=== PATIENT | female | born 1950 | race Caucasian/White ===

== ENCOUNTER 2017-10-22 09:41 | Inpatient (IN) | payer OTHER ==
[2017-10-22] MEDS ORDERED: Ondansetron 4 MG Tab.DIS PO ONE (10:43)
--- NOTE | 2017-10-22 10:47 | EDM.PDOC ---
ED HPI GENERAL MEDICAL PROBLEM - General Chief Complaint: Respiratory Problem Stated Complaint: SHORTNESS OF BREATH Time Seen by Provider: 10/22/17 10:30 Source of Information: Reports: Patient, Family History Limitations: Reports: No Limitations - History of Present Illness INITIAL COMMENTS - FREE TEXT/NARRATIVE: 67-year-old female started developing cold symptoms yesterday, last night it became worse with a cough, nasal congestion, persistent nausea and she just feels "awful". No significant fever, no headache. Intermittent shortness of breath. She has a history of COPD and only "one kidney" so became worried and wanted to be evaluated. Denies any pain. No diarrhea. No exposure to illness that she knows of and she did not receive an influenza vaccine. Onset: Gradual (Over the course of the last 24 hours) Associated Symptoms: Reports: Cough, Loss of Appetite, Malaise, Nausea/Vomiting , Shortness of Breath, Weakness. Denies: Headaches - Related Data Allergies Allergy/AdvReac Type Severity Reaction Status Date / Time Sulfa (Sulfonamide Allergy Rash Verified 09/21/16 21:30 Antibiotics) Home Meds: Home Meds Aspirin [Niko Chewable Aspirin] 81 mg PO DAILY 11/21/13 [History] Insulin Aspart [NovoLOG] 0 units SUBCUT TID 11/21/13 [History] Insulin Detemir [Levemir] 17 units SUBCUT BID 11/21/13 [History] Labetalol [Normodyne] 200 mg PO BID 11/21/13 [History] Levothyroxine 125 mcg PO DAILY 11/21/13 [History] amLODIPine [Norvasc] 10 mg PO DAILY 11/21/13 [History] Furosemide 40 mg PO DAILY 12/10/13 [History] Citalopram Hydrobromide [Celexa] 20 mg PO DAILY 01/15/14 [History] Nitroglycerin [Nitrostat] 0.4 mg SL ASDIRECTED PRN 01/15/14 [History] atorvaSTATin [Lipitor] 80 mg PO BEDTIME 01/15/14 [History] Metolazone [Metolazone] 2.5 mg PO DAILY 07/09/16 [History] Past Medical History HEENT History: Reports: Impaired Vision Cardiovascular History: Reports: High Cholesterol, Hypertension, [place], SOB on Exertion, Stents Respiratory History: Reports: Pneumonia, Recurrent Genitourinary History: Reports: Other (See Below) Other Genitourinary History: nephrectomy, [employer] History: Reports: Musculoskeletal History: Reports: Osteoporosis Psychiatric History: Reports: Anxiety, Depression Endocrine/Metabolic History: Reports: Diabetes, Type I, Hyperthyroidism Hematologic History: Reports: Anemia, B12 Deficiency, Blood Transfusion(s) - Infectious Disease History Infectious Disease History: Reports: Chicken Pox - Past Surgical History Cardiovascular Surgical History: Reports: Coronary Artery Bypass, Coronary Artery Stent GI Surgical History: Reports: Appendectomy, Colonoscopy Social & Family History - Family History Cardiac: Reports: Heart Failure, [place] - Tobacco Use Smoking Status *Q: Unknown Ever Smoked Second Hand Smoke Exposure: No - Caffeine Use Caffeine Use: Reports: Coffee - Alcohol Use Days Per Week of Alcohol Use: 4 Number of Drinks Per Day: 2 Total Drinks Per Week: 8 - Recreational Drug Use Recreational Drug Use: No ED ROS GENERAL - Review of Systems Review Of Systems: See Below Constitutional: Reports: Fever, Malaise, Weakness HEENT: Reports: Rhinitis. Denies: Throat Pain Respiratory: Reports: Shortness of Breath, Cough. Denies: Sputum Cardiovascular: Denies: Chest Pain GI/Abdominal: Reports: Nausea. Denies: Abdominal Pain, Vomiting Skin: Reports: No Symptoms Neurological: Reports: Weakness. Denies: Dizziness, Headache Psychiatric: Reports: No Symptoms ED EXAM, GENERAL - Physical Exam Exam: See Below Exam Limited By: No Limitations General Appearance: Alert, No Apparent Distress Eye Exam: Bilateral Eye: Normal Inspection Head: Atraumatic Respiratory/Chest: No Respiratory Distress, Lungs Clear Cardiovascular: Regular Rate, Rhythm. No: Bradycardia, Tachycardia GI/Abdominal: Normal Bowel Sounds, Soft, Non-Tender Extremities: No: Pedal Edema Neurological: Alert, Oriented Psychiatric: Depressed Mood Skin Exam: Warm, Dry Course - Vital Signs Last Recorded V/S: Last Vital Signs Temp 98.9 F 10/23/17 03:01 Pulse 59 L 10/23/17 03:01 Resp 16 10/23/17 03:01 BP 114/43 L 10/23/17 03:01 Pulse Ox 94 L 10/23/17 03:01 - Orders/Labs/Meds Orders: Medication Orders Acetaminophen (Tylenol) 650 mg PO Q4H PRN PRN Reason: Pain (Mild 1-3)/fever Albuterol (Proventil Neb Soln) 2.5 mg NEB Q4H PRN PRN Reason: Shortness Of Breath/wheezing Albuterol/Ipratropium (Duoneb 3.0-0.5 Mg/3 Ml) 3 ml NEB QIDRT [facility] Last Admin: 10/22/17 21:03 Dose: 3 ml Admin: 10/22/17 16:23 Dose: 3 ml Amlodipine Besylate (Norvasc) 10 mg PO DAILY [facility] Last Admin: 10/22/17 16:51 Dose: 10 mg Aspirin (Aspirin) 81 mg PO DAILY [facility] Last Admin: 10/22/17 16:49 Dose: 81 mg Atorvastatin Calcium (Lipitor) 80 mg PO BEDTIME [facility] Last Admin: 10/22/17 21:05 Dose: 80 mg Citalopram Hydrobromide (Celexa) 20 mg PO DAILY [facility] Dextrose (Glutose 15) 15 gm PO ONETIME PRN PRN Reason: Hypoglycemia Dextrose/Water (Dextrose 50% In Water) 50 ml IV ONETIME PRN PRN Reason: Hypoglycemia Docusate Sodium (Colace) 100 mg PO BID PRN PRN Reason: Constipation Enoxaparin Sodium (Lovenox) 40 mg SUBCUT QPM [facility] Last Admin: 10/22/17 16:50 Dose: 40 mg Furosemide (Lasix) 40 mg PO DAILY [facility] Ampicillin Sodium/Sulbactam (Sodium 1.5 gm/ Sodium Chloride) 50 mls @ 100 mls/ hr IV Q6H [facility] Last Admin: 10/23/17 03:04 Dose: 100 mls/hr Admin: 10/22/17 21:16 Dose: 100 mls/hr Admin: 10/22/17 16:50 Dose: 100 mls/hr Sodium Chloride (Normal Saline) 1,000 mls @ 125 mls/hr IV ASDIRECTED [facility] Last Admin: 10/23/17 02:00 Dose: 125 mls/hr Insulin Aspart (Novolog) 0 unit SUBCUT QIDACANDBED [facility] PRN Reason: Protocol Last Admin: 10/22/17 20:59 Dose: 10 units Admin: 10/22/17 17:20 Dose: 8 units Insulin Detemir (Levemir) 17 unit SUBCUT BID [facility] Last Admin: 10/22/17 21:00 Dose: 17 units Labetalol HCl (Normodyne) 200 mg PO BID [facility] Last Admin: 10/22/17 21:04 Dose: 200 mg Levothyroxine Sodium (Levothyroxine) 75 mcg PO ACBREAKFAST [facility] Levothyroxine Sodium (Synthroid) 50 mcg PO ACBREAKFAST [facility] Magnesium Hydroxide (Milk Of Magnesia) 30 ml PO Q12H PRN PRN Reason: Constipation Metolazone (Zaroxolyn) 2.5 mg PO DAILY [facility] Nitroglycerin (Nitrostat) 0.4 mg SL ASDIRECTED PRN PRN Reason: Chest Pain Ondansetron HCl (Zofran) 4 mg IV Q4H PRN PRN Reason: Nausea/Vomiting Oseltamivir Phosphate (Tamiflu) 30 mg PO BID [facility] Last Admin: 10/22/17 21:05 Dose: 30 mg Admin: 10/22/17 16:49 Dose: 30 mg Oxycodone HCl (Oxycodone) 5 mg PO Q4H PRN PRN Reason: Pain (moderate 4-6) Polyethylene Glycol (Miralax) 17 gm PO DAILY PRN PRN Reason: Constipation Sodium Chloride (Saline Flush) 10 ml FLUSH ASDIRECTED PRN PRN Reason: Keep Vein Open Labs: Laboratory Tests 10/22/17 10/22/17 10/22/17 Range/Units 10:56 10:56 13:22 WBC 4.6 (4.5-11.0) K/uL RBC 3.71 (3.30-5.50) M/uL Hgb 11.4 L (12.0-15.0) g/dL Hct 34.6 L (36.0-48.0) % MCV 93 (80-98) fL MCH 31 (27-31) pg MCHC 33 (32-36) % Plt Count 198 (150-400) K/uL Neut % (Auto) 71 H (36-66) % Lymph % (Auto) 11 L (24-44) % [place] % (Auto) 18 H (2-6) % Eos % (Auto) 0 L (2-4) % Baso % (Auto) 1 (0-1) % Sodium 137 L (140-148) mmol/L Potassium 4.0 (3.6-5.2) mmol/L Chloride 98 L (100-108) mmol/L Carbon Dioxide 26 (21-32) mmol/L Anion Gap 17.0 H (5.0-14.0) mmol/L BUN 37 H (7-18) mg/dL Creatinine 1.5 H (0.6-1.0) mg/dL Est Cr Clr Drug Dosing 26.50 mL/min Estimated GFR (MDRD) 35 L (>60) Glucose 207 H (74-106) mg/dL Calcium 9.8 (8.5-10.1) mg/dL Total Bilirubin 2.0 H D (0.2-1.0) mg/dL AST 37 D (15-37) U/L ALT 38 D (12-78) U/L Alkaline Phosphatase 301 H D (46-116) U/L Total Protein 8.0 (6.4-8.2) g/dL Albumin 4.3 (3.4-5.0) g/dL Globulin 3.7 H (2.3-3.5) g/dL Albumin/Globulin Ratio 1.2 (1.2-2.2) Urine Color Yellow Urine Appearance Slightly cloudy Urine pH 5.0 (4.5-8.0) Ur Specific [place] 1.010 (1.008-1.030) Urine Protein 30 H (NEGATIVE) mg/dL Urine Glucose (UA) 50 H (NEGATIVE) mg/dL Urine Ketones 15 H (NEGATIVE) mg/dL Urine Occult Blood Negative (NEGATIVE) Urine Nitrite Negative (NEGATIVE) Urine Bilirubin Negative (NEGATIVE) Urine Urobilinogen 1 (NORMAL) mg/dL Ur Leukocyte Esterase Negative (NEGATIVE) Urine RBC 0-5 (0-5) Urine WBC Not seen (0-5) Ur Epithelial Cells Rare Amorphous Sediment Rare Urine Bacteria Not seen Urine Mucus Not seen Meds: Medications Generic Name Dose Route Start Last Admin Trade Name Freq PRN Reason Stop Dose Admin Acetaminophen 650 mg 10/22/17 16:03 Tylenol PO Q4H PRN Pain (Mild 1-3)/fever Albuterol 2.5 mg 10/22/17 16:03 Proventil Neb Soln NEB Q4H PRN Shortness Of Breath/wheezing Albuterol/Ipratropium 3 ml 10/22/17 16:00 10/22/17 21:03 Duoneb 3.0-0.5 Mg/3 Ml NEB 3 ml QIDRT [facility] Administration Amlodipine Besylate 10 mg 10/22/17 17:00 10/22/17 16:51 Norvasc PO 10 mg DAILY [facility] Administration Aspirin 81 mg 10/22/17 17:00 10/22/17 16:49 Aspirin PO 81 mg DAILY [facility] Administration Atorvastatin Calcium 80 mg 10/22/17 21:00 10/22/17 21:05 Lipitor PO 80 mg BEDTIME J[facility]ATAN Administration Citalopram Hydrobromide 20 mg 10/23/17 09:00 Celexa PO DAILY [facility] Dextrose 15 gm 10/22/17 16:03 Glutose 15 PO ONETIME PRN Hypoglycemia Dextrose/Water 50 ml 10/22/17 16:03 Dextrose 50% In Water IV ONETIME PRN Hypoglycemia Docusate Sodium 100 mg 10/22/17 16:03 Colace PO BID PRN Constipation Enoxaparin Sodium 40 mg 10/22/17 17:00 10/22/17 16:50 Lovenox SUBCUT 40 mg QPM [facility] Administration Furosemide 40 mg 10/23/17 09:00 Lasix PO DAILY [facility] Ampicillin Sodium/Sulbactam 50 mls @ 100 mls/hr 10/22/17 16:00 10/23/17 03:04 Sodium 1.5 gm/ Sodium Chloride IV 100 mls/hr Q6H [facility] Administration Sodium Chloride 1,000 mls @ 125 mls/hr 10/22/17 21:30 10/23/17 02:00 Normal Saline IV 125 mls/hr ASDIRECTED [facility] Administration Insulin Aspart 0 unit 10/22/17 17:00 10/22/17 20:59 Novolog SUBCUT 10 units QIDACANDBED [facility] Administration Protocol Insulin Detemir 17 unit 10/22/17 21:00 10/22/17 21:00 Levemir SUBCUT 17 units BID [facility] Administration Labetalol HCl 200 mg 10/22/17 21:00 10/22/17 21:04 Normodyne PO 200 mg BID [facility] Administration Levothyroxine Sodium 75 mcg 10/23/17 07:30 Levothyroxine PO ACBREAKFAST [facility] Levothyroxine Sodium 50 mcg 10/23/17 07:30 Synthroid PO ACBREAKFAST [facility] Magnesium Hydroxide 30 ml 10/22/17 16:03 Milk Of Magnesia PO Q12H PRN Constipation Metolazone 2.5 mg 10/23/17 09:00 Zaroxolyn PO DAILY [facility] Nitroglycerin 0.4 mg 10/22/17 16:03 Nitrostat SL ASDIRECTED PRN Chest Pain Ondansetron HCl 4 mg 10/22/17 16:03 Zofran IV Q4H PRN Nausea/Vomiting Oseltamivir Phosphate 30 mg 10/22/17 16:30 10/22/17 21:05 Tamiflu PO 30 mg BID [facility] Administration Oxycodone HCl 5 mg 10/22/17 16:03 Oxycodone PO Q4H PRN Pain (moderate 4-6) Polyethylene Glycol 17 gm 10/22/17 16:03 Miralax PO DAILY PRN Constipation Sodium Chloride 10 ml 10/22/17 16:03 Saline Flush FLUSH ASDIRECTED PRN Keep Vein Open Discontinued Medications Generic Name Dose Route Start Last Admin Trade Name Freq PRN Reason Stop Dose Admin Acetaminophen 1,000 mg 10/22/17 14:23 10/22/17 14:25 Tylenol Extra Strength PO 10/22/17 14:24 1,000 mg ONETIME ONE Administration Albuterol/Ipratropium 3 ml 10/22/17 13:24 10/22/17 13:52 Duoneb 3.0-0.5 Mg/3 Ml NEB 10/22/17 13:25 3 ml ONETIME ONE Administration Sodium Chloride 1,000 mls @ 1,000 mls/hr 10/22/17 11:30 10/22/17 11:41 Normal Saline IV 1,000 mls/hr ASDIRECTED [facility] Administration Sodium Chloride 500 mls @ 250 mls/hr 10/22/17 16:03 Normal Saline IV 10/22/17 22:04 .BOLUS J[facility]ONAT[facility] Ondansetron HCl 4 mg 10/22/17 10:43 10/22/17 10:53 Zofran Odt PO 10/22/17 10:44 4 mg ONETIME ONE Administration Ondansetron HCl 4 mg 10/22/17 12:50 10/22/17 13:07 Zofran IVPUSH 10/22/17 12:51 4 mg ONETIME ONE Administration - Re-Assessments/Exams Free Text/Narrative Re-Assessment/Exam: 10/22/17 10:47 Patient was given 4 mg of sublingual Zofran, CBC CMP and influenza antigens were obtained. 10/22/17 12:07 Influenza was positive for influenza A. CMP reveals an elevated creatinine and low GFR consistent with recent clinic levels. She does have some elevation in her alkaline phosphatase and bilirubin. Because of the elevations and her persistent nausea a gallbladder ultrasound was obtained. We also had to place the patient on oxygen as her O2 saturations decreased with activity. 10/23/17 07:24 Ultrasound revealed a small amount of pericholecystic fluid. Patient continued to have persistent nausea, so I asked Dr. Bryan to see the patient to consider admission. Departure - Departure Time of Disposition: 15:49 Disposition: Admitted As Inpatient 67 Condition: Fair Clinical Impression: Influenza A Nausea & vomiting Qualifiers: Vomiting type: unspecified Vomiting Intractability: non-intractable Qualified Code(s): R11.2 - Nausea with vomiting, unspecified - Discharge Information
[2017-10-22] MEDS ORDERED: Sodium Chloride 0.9% 1,000 ML IV SCH ×2 (11:30→21:30)
[2017-10-22] MEDS ORDERED: Ondansetron 4 MG/2 ML SDV IVPUSH ONE (12:50)
[2017-10-22] MEDS ORDERED: Albuterol/Ipratropium 3.0-0.5 MG/3 ML Neb Soln NEB ONE (13:24)
--- NOTE | 2017-10-22 14:03 | US ---
Right upper quadrant ultrasound There are no focal hepatic abnormalities. There is mild prominence of the intrahepatic bile ducts. Th e common bile duct is nondistended measuring 3 mm. There is a polyp of the gallbladder measuring 4.7 mm. The gallbladder is not distended. Gallbladder wall appears mildly thickened measuring 3 mm. Quest ion inadequate fasting. There may be mild pericholecystic fluid. There is no pain elicited with palpa tion over the gallbladder. Limited evaluation of the pancreas demonstrates no abnormalities. The righ t kidney is surgically absent. There is no ascites. The IVC and abdominal aorta are unremarkable. Impression: 1. Nondistended gallbladder. Mild wall thickening. There is evidence of a polyp. No stones are seen. Evidence for mild pericholecystic fluid. The study could repeated with adequate fasting. 2. Mild intrahepatic biliary ductal distention cannot be excluded. 3. Limited visualization of the pancreas.
[2017-10-22] MEDS ORDERED: Acetaminophen 500 MG Tab PO ONE (14:23)
--- NOTE | 2017-10-22 15:38 | PCM.HP ---
H&P History of Present Illness - General Date of Service: 10/22/17 Admit Problem/Dx: Source of Information: Patient, Old Records, Provider, RN Notes Reviewed History Limitations: Reports: No Limitations - History of Present Illness Initial Comments - Free Text/Narative: Ms. Roach is a 67-year-old woman who is admitted through the emergency department with weakness, myalgias, fever, and shortness of breath secondary to influenza A. She was feeling well until approximately 36 hours ago when she developed progressive shortness of breath with fever and chills, since then has developed cough and significant myalgias with nausea and vomiting. White blood cell count is normal, chest x-ray shows no obvious infiltrates. Antigen for influenza A is found to be positive. Because of nausea vomiting as well as elevated liver enzymes, abdominal ultrasound was obtained. This does show mild thickening of the gallbladder wall associated with pericolic systolic fluid. She 's never had a previous history gallbladder disease and denies significant symptoms even with eating fatty foods. - Related Data Allergies/Adverse Reactions: Allergies Allergy/AdvReac Type Severity Reaction Status Date / Time Sulfa (Sulfonamide Allergy Rash Verified 09/21/16 21:30 Antibiotics) Home Medications: Home Meds Aspirin [Niko Chewable Aspirin] 81 mg PO DAILY 11/21/13 [History] Insulin Aspart [NovoLOG] 0 units SUBCUT TID 11/21/13 [History] Insulin Detemir [Levemir] 17 units SUBCUT BID 11/21/13 [History] Labetalol [Normodyne] 200 mg PO BID 11/21/13 [History] Levothyroxine 125 mcg PO DAILY 11/21/13 [History] amLODIPine [Norvasc] 10 mg PO DAILY 11/21/13 [History] Furosemide 40 mg PO DAILY 12/10/13 [History] Citalopram Hydrobromide [Celexa] 20 mg PO DAILY 01/15/14 [History] Nitroglycerin [Nitrostat] 0.4 mg SL ASDIRECTED PRN 01/15/14 [History] atorvaSTATin [Lipitor] 80 mg PO BEDTIME 01/15/14 [History] Metolazone [Metolazone] 2.5 mg PO DAILY 07/09/16 [History] Past Medical History HEENT History: Reports: Impaired Vision Cardiovascular History: Reports: High Cholesterol, Hypertension, [place], SOB on Exertion, Stents Respiratory History: Reports: Pneumonia, Recurrent Genitourinary History: Reports: Other (See Below) Other Genitourinary History: nephrectomy, 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: Musculoskeletal History: Reports: Osteoporosis Psychiatric History: Reports: Anxiety, Depression Endocrine/Metabolic History: Reports: Diabetes, Type I, Hyperthyroidism Hematologic History: Reports: Anemia, B12 Deficiency, Blood Transfusion(s) - Infectious Disease History Infectious Disease History: Reports: Chicken Pox - Past Surgical History Cardiovascular Surgical History: Reports: Coronary Artery Bypass, Coronary Artery Stent GI Surgical History: Reports: Appendectomy, Colonoscopy Social & Family History - Family History Cardiac: Reports: Heart Failure, [place] - Tobacco Use Smoking Status *Q: Unknown Ever Smoked Second Hand Smoke Exposure: No - Caffeine Use Caffeine Use: Reports: Coffee - Alcohol Use Days Per Week of Alcohol Use: 4 Number of Drinks Per Day: 2 Total Drinks Per Week: 8 - Recreational Drug Use Recreational Drug Use: No H&P Review of Systems - Review of Systems: Review Of Systems: See Below General: Reports: Fever, Chills, Weakness, Diaphoresis, Decreased Appetite HEENT: Reports: No Symptoms Pulmonary: Reports: Shortness of Breath, Cough, Sputum. Denies: Wheezing, Pleuritic Chest Pain, Hemoptysis Cardiovascular: Reports: Dyspnea on Exertion, Edema. Denies: Chest Pain, Palpitations, Orthopnea, PND, Lightheadedness Gastrointestinal: Reports: Anorexia, Nausea, Vomiting. Denies: Abdominal Pain, Constipation, Diarrhea, Difficulty Swallowing, Hematemesis, Hematochezia, Melena Genitourinary: Reports: No Symptoms Musculoskeletal: Reports: Muscle Pain, Muscle Stiffness Skin: Reports: No Symptoms Psychiatric: Reports: No Symptoms Neurological: Reports: No Symptoms Hematologic/Lymphatic: Reports: No Symptoms Immunologic: Reports: No Symptoms Exam - Exam Exam: See Below - Vital Signs Vital Signs: Last Vital Signs Temp 101.7 F H 10/22/17 14:04 Pulse 77 10/22/17 14:04 Resp 16 10/22/17 14:04 BP 151/59 H 10/22/17 14:04 Pulse Ox 92 L 10/22/17 14:04 Weight: 155 lb - Exam Quality Assessment: Supplemental Oxygen, DVT Prophylaxis General: Alert, Oriented, Cooperative, Moderate Distress HEENT: Conjunctiva Clear, Hearing Intact, Normal Nasal Septum, Posterior Pharynx Clear, Pupils Equal. No: Mucosa Moist & [place] Neck: Supple, Trachea Midline, +2 Carotid Pulse wo Bruit Lungs: Rhonchi. No: Crackles, Rales, Rub, Stridor, Wheezing Cardiovascular: Regular Rate, Regular Rhythm, Normal S1, Normal S2. No: Systolic Murmur, Diastolic Murmur GI/Abdominal Exam: Soft, Non-Tender, No Organomegaly, No Distention Back Exam: Normal Inspection, Full Range of Motion Extremities: Non-Tender, Pedal Edema Skin: Warm, Dry, Intact Neurological: Cranial Nerves Intact, Strength Equal Bilateral, Normal Speech, Normal Tone, Sensation Intact. No: Focal Deficit Neuro Extensive - Mental Status: Alert, Oriented x3, Normal Mood/Affect, Normal Cognition, Memory Intact - Patient Data Lab Results Last 24 hrs: Laboratory Results - last 24 hr 10/22/17 10/22/17 10/22/17 Range/Units 10:56 10:56 13:22 WBC 4.6 (4.5-11.0) K/uL RBC 3.71 (3.30-5.50) M/uL Hgb 11.4 L (12.0-15.0) g/dL Hct 34.6 L (36.0-48.0) % MCV 93 (80-98) fL MCH 31 (27-31) pg MCHC 33 (32-36) % Plt Count 198 (150-400) K/uL Neut % (Auto) 71 H (36-66) % Lymph % (Auto) 11 L (24-44) % Davison % (Auto) 18 H (2-6) % Eos % (Auto) 0 L (2-4) % Baso % (Auto) 1 (0-1) % Sodium 137 L (140-148) mmol/L Potassium 4.0 (3.6-5.2) mmol/L Chloride 98 L (100-108) mmol/L Carbon Dioxide 26 (21-32) mmol/L Anion Gap 17.0 H (5.0-14.0) mmol/L BUN 37 H (7-18) mg/dL Creatinine 1.5 H (0.6-1.0) mg/dL Est Cr Clr Drug Dosing 26.50 mL/min Estimated GFR (MDRD) 35 L (>60) Glucose 207 H (74-106) mg/dL Calcium 9.8 (8.5-10.1) mg/dL Total Bilirubin 2.0 H D (0.2-1.0) mg/dL AST 37 D (15-37) U/L ALT 38 D (12-78) U/L Alkaline Phosphatase 301 H D (46-116) U/L Total Protein 8.0 (6.4-8.2) g/dL Albumin 4.3 (3.4-5.0) g/dL Globulin 3.7 H (2.3-3.5) g/dL Albumin/Globulin Ratio 1.2 (1.2-2.2) Urine Color Yellow Urine Appearance Slightly cloudy Urine pH 5.0 (4.5-8.0) Ur Specific [place] 1.010 (1.008-1.030) Urine Protein 30 H (NEGATIVE) mg/dL Urine Glucose (UA) 50 H (NEGATIVE) mg/dL Urine Ketones 15 H (NEGATIVE) mg/dL Urine Occult Blood Negative (NEGATIVE) Urine Nitrite Negative (NEGATIVE) Urine Bilirubin Negative (NEGATIVE) Urine Urobilinogen 1 (NORMAL) mg/dL Ur Leukocyte Esterase Negative (NEGATIVE) Urine RBC 0-5 (0-5) Urine WBC Not seen (0-5) Ur Epithelial Cells Rare Amorphous Sediment Rare Urine Bacteria Not seen Urine Mucus Not seen Result Diagrams: 10/22/17 10:56 10/22/17 10:56 Asad Results Last 24 hrs: Microbiology 10/22/17 10:55 Influenza Type A Antigen Screen - Final Nasopharyngeal Swab - Nare, Right Positive Influenza A Ag Influenza Type B Antigen Screen - Final NEGATIVE INFLUENZA B VIRUS AG *Q Meaningful Use (ADM) - VTE *Q VTE Criteria *Q: - VTE Risk Assess *Q Each Risk Factor Represents 1 Point: Congestive heart failure (CHF) Total Score 1 Point Risk Factors: 1 Each Risk Factor Represents 2 Points: Age 60 - 74 Years Total Score 2 Point Risk Factors: 2 Each Risk Factor Represents 3 Points: None Total Score 3 Point Risk Factors: 0 Each Risk Factor Represents 5 Points: None Total Score 5 Point Risk Factors: 0 Venous Thromboembolism Risk Factor Score *Q: 3 - Stroke *Q Stroke Criteria *Q: - AMI *Q AMI Criteria *Q: Problem List Initiated/Reviewed/Updated: Yes Orders Last 24hrs: Active Orders 24 hr Category Date Time Status Patient Status Manage Transfer [TRANSFER] Routine ADT 10/22/17 15:13 Active RT Aerosol Therapy [RC] ASDIRECTED Care 10/22/17 13:24 Active Sodium Chloride 0.9% [Normal Saline] 1,000 ml Med 10/22/17 11:30 Active IV ASDIRECTED Resuscitation Status Routine Resus Stat 10/22/17 15:16 Ordered Medication Orders Sodium Chloride (Normal Saline) 1,000 mls @ 1,000 mls/hr IV ASDIRECTED [facility] Last Admin: 10/22/17 11:41 Dose: 1,000 mls/hr Assessment/Plan Comment:: ASSESSMENT AND PLAN INFLUENZA A INFECTION-associated symptoms of shortness of breath cough, myalgias , fever, and weakness. Symptoms present now for approximately 36 hours. -IV fluids for hydration -Pain medication as needed for myalgias -Tamiflu 75 mg by mouth twice a day 5 days CHOLECYSTITIS-evidence of gallbladder inflammation, although mild, noted on abdominal ultrasound. Symptoms of nausea and vomiting over the past 24 hours. -Anti-medic therapy as needed -Unasyn 1.5 g IV every 6 hours -Consider further evaluation with HIDA scan when respiratory symptoms have improved HYPOXIC RESPIRATORY FAILURE-secondary to influenza A, also has known congestive heart failure with preserved left ventricular function -Supplemental oxygen as needed -Nebulized albuterol and duo nebs as needed -Continuous pulse oximetry CONGESTIVE HEART FAILURE WITH PRESERVED LEFT VENTRICULAR FUNCTION-RT failure seems to be well compensated at the present time -Continue outpatient medical regimen CORONARY ARTERY DISEASE-currently asymptomatic -Continue outpatient medical regimen CHRONIC KIDNEY DISEASE STAGE III -Closely monitor urine output and renal function during hospital stay TYPE 2 DIABETES MELLITUS -Continue usual dose of long-acting insulin -Hold usual dose of NovoLog -4 times a day glucometers -Moderate dose sliding scale NovoLog MAINTENANCE ISSUES -DVT prophylaxis; Lovenox 40 mg subcutaneous daily -GI prophylaxis; not indicated -Muhammad catheter; not indicated -Nutrition; consistent carbohydrate, 2 g sodium diet -Nicotine dependence; not required CODE STATUS-FULL CODE ADMISSION STATUS-patient will be admitted to inpatient status, expect at least a 2 night hospital stay for evaluation and management of problems as outlined above. At the time of this admission I do not reasonably expected evaluation and management of this problem will require more than a 96 hour hospital stay. DISPOSITION-anticipate discharge to home after the hospital stay. PRIMARY CARE PROVIDER-Erwin Núñez
[2017-10-22] MEDS ORDERED: Ondansetron 4 MG/2 ML SDV IV PRN (16:03)
[2017-10-22] MEDS ORDERED: Polyethylene Glycol 3350 Powder 17 GM Packet PO PRN (16:03)
[2017-10-22] MEDS ORDERED: 50% Dextrose in Water 50 ML Syringe IV PRN (16:03)
[2017-10-22] MEDS ORDERED: Albuterol 0.083% 2.5 MG/3 ML Neb Soln NEB PRN (16:03)
[2017-10-22] MEDS ORDERED: Docusate Sodium 100 MG Cap PO PRN (16:03)
[2017-10-22] MEDS ORDERED: Sodium Chloride 0.9% 10 ML Syringe FLUSH PRN (16:03)
[2017-10-22] MEDS ORDERED: oxyCODONE 5 MG Tab PO PRN (16:03)
[2017-10-22] MEDS ORDERED: Magnesium Hydroxide 400 MG/5 ML Susp 30 ML Cup PO PRN (16:03)
[2017-10-22] MEDS ORDERED: Nitroglycerin 0.4 MG Tab.SL SL PRN (16:03)
[2017-10-22] MEDS ORDERED: Sodium Chloride 0.9% 500 ML IV SCH (16:03)
[2017-10-22] MEDS ORDERED: Glucose Gel 15 GM in 37.5 GM Tube PO PRN (16:03)
[2017-10-22] MEDS: Albuterol/Ipratropium 3.0-0.5 MG/3 ML Neb Soln NEB SCH ×2 (16:23→21:03)
[2017-10-22] MEDS: Aspirin 81 MG Tab.Chew PO SCH (16:49)
[2017-10-22] MEDS: Oseltamivir 30 MG Cap PO SCH ×2 (16:49→21:05)
[2017-10-22] MEDS: Ampicillin/Sulbactam Na 1.5 GM in Sodium Chloride 0.9% 50 ML IV SCH ×2 (16:50→21:16)
[2017-10-22] MEDS: Enoxaparin 40 MG/0.4 ML Syringe SUBCUT SCH (16:50)
[2017-10-22] MEDS: amLODIPine 10 MG Tab PO SCH (16:51)
[2017-10-22] MEDS: Insulin Aspart 100 Units/ML 3 ML Pen SUBCUT SCH ×2 (17:20→20:59)
[2017-10-22] MEDS: Insulin Detemir 100 Units/ML 3 ML Pen SUBCUT SCH (21:00)
[2017-10-22] MEDS: Labetalol 100 MG Tab PO SCH (21:04)
[2017-10-22] MEDS: atorvaSTATin 20 MG Tab PO SCH (21:05)
[2017-10-23] MEDS: Ampicillin/Sulbactam Na 1.5 GM in Sodium Chloride 0.9% 50 ML IV SCH ×4 (03:04→21:35)
[2017-10-23] MEDS: Levothyroxine 50 MCG Tab PO SCH (07:46)
[2017-10-23] MEDS: Levothyroxine 75 MCG Tab PO SCH (07:46)
[2017-10-23] MEDS: Insulin Aspart 100 Units/ML 3 ML Pen SUBCUT SCH ×4 (07:58→21:36)
[2017-10-23] MEDS: Albuterol/Ipratropium 3.0-0.5 MG/3 ML Neb Soln NEB SCH ×4 (08:04→20:28)
[2017-10-23] MEDS: amLODIPine 10 MG Tab PO SCH (08:49)
[2017-10-23] MEDS: Furosemide 40 MG Tab PO SCH (08:50)
[2017-10-23] MEDS: Citalopram 20 MG Tab PO SCH (08:50)
[2017-10-23] MEDS: Oseltamivir 30 MG Cap PO SCH ×2 (08:50→20:26)
[2017-10-23] MEDS: Labetalol 100 MG Tab PO SCH ×2 (08:50→20:26)
[2017-10-23] MEDS: Metolazone 2.5 MG Tab PO SCH (08:50)
[2017-10-23] MEDS: Aspirin 81 MG Tab.Chew PO SCH (08:50)
[2017-10-23] MEDS: Insulin Detemir 100 Units/ML 3 ML Pen SUBCUT SCH ×2 (08:51→21:36)
--- NOTE | 2017-10-23 12:46 | PCM.PN ---
- General Info Date of Service: 10/23/17 Subjective Update: Ms. Roach feels improved from admission respiratory status is better with less shortness of breath and cough. Abdominal pain with nausea vomiting is also resolved she tolerated breakfast today without significant difficulty. Liver enzymes have all improved from yesterday. Functional Status: Reports: Pain Controlled, Tolerating Diet - Review of Systems General: Denies: Fever, Weakness, Chills Pulmonary: Reports: Shortness of Breath, Cough. Denies: Pleuritic Chest Pain, Sputum, Hemoptysis, Wheezing Cardiovascular: Reports: Dyspnea on Exertion. Denies: Chest Pain, Palpitations , Orthopnea, PND, Edema, Lightheadedness Gastrointestinal: Denies: Abdominal Pain, Decreased Appetite, Diarrhea, Difficulty Swallowing, Nausea, Vomiting - Patient Data Vitals - Most Recent: Last Vital Signs Temp 98.8 F 10/23/17 11:00 Pulse 56 L 10/23/17 11:00 Resp 18 10/23/17 11:00 BP 118/47 L 10/23/17 11:00 Pulse Ox 94 L 10/23/17 11:00 Weight - Most Recent: 159 lb 12.8 oz I&O - Last 24 Hours: Intake & Output 10/22/17 10/23/17 10/23/17 22:59 06:59 14:59 Intake Total 550 842 360 Output Total 300 300 Balance 250 542 360 Lab Results Last 24 Hours: Laboratory Results - last 24 hr 10/23/17 10/23/17 10/23/17 Range/Units 05:11 06:00 06:00 WBC 3.0 L (4.5-11.0) K/uL RBC 3.32 (3.30-5.50) M/uL Hgb 10.2 L (12.0-15.0) g/dL Hct 31.5 L (36.0-48.0) % MCV 95 (80-98) fL MCH 31 (27-31) pg MCHC 32 (32-36) % Plt Count 165 (150-400) K/uL Neut % (Auto) 38 (36-66) % Lymph % (Auto) 30 (24-44) % [place] % (Auto) 31 H (2-6) % Eos % (Auto) 0 L (2-4) % Baso % (Auto) 0 (0-1) % Sodium 137 L (140-148) mmol/L Potassium 3.8 (3.6-5.2) mmol/L Chloride 102 (100-108) mmol/L Carbon Dioxide 27 (21-32) mmol/L Anion Gap 11.8 (5.0-14.0) mmol/L BUN 42 H (7-18) mg/dL Creatinine 1.7 H (0.6-1.0) mg/dL Est Cr Clr Drug Dosing TNP Estimated GFR (MDRD) 30 L (>60) Glucose 140 H (74-106) mg/dL Calcium 8.2 L D (8.5-10.1) mg/dL Magnesium 1.8 (1.8-2.4) mg/dL Total Bilirubin 1.1 H (0.2-1.0) mg/dL AST 47 H (15-37) U/L ALT 33 (12-78) U/L Alkaline Phosphatase 235 H (46-116) U/L Total Protein 6.4 (6.4-8.2) g/dL Albumin 3.3 L (3.4-5.0) g/dL Globulin 3.1 (2.3-3.5) g/dL Albumin/Globulin Ratio 1.1 L (1.2-2.2) TSH, Ultra Sensitive 2.545 (0.358-3.740) uIU/mL Med Orders - Current: Current Medications Acetaminophen (Tylenol) 650 mg PO Q4H PRN PRN Reason: Pain (Mild 1-3)/fever Albuterol (Proventil Neb Soln) 2.5 mg NEB Q4H PRN PRN Reason: Shortness Of Breath/wheezing Albuterol/Ipratropium (Duoneb 3.0-0.5 Mg/3 Ml) 3 ml NEB QIDRT [facility] Last Admin: 10/23/17 10:54 Dose: 3 ml Amlodipine Besylate (Norvasc) 10 mg PO DAILY [facility] Last Admin: 10/23/17 08:49 Dose: 10 mg Aspirin (Aspirin) 81 mg PO DAILY [facility] Last Admin: 10/23/17 08:50 Dose: 81 mg Atorvastatin Calcium (Lipitor) 80 mg PO BEDTIME [facility] Last Admin: 10/22/17 21:05 Dose: 80 mg Citalopram Hydrobromide (Celexa) 20 mg PO DAILY [facility] Last Admin: 10/23/17 08:50 Dose: 20 mg Dextrose (Glutose 15) 15 gm PO ONETIME PRN PRN Reason: Hypoglycemia Dextrose/Water (Dextrose 50% In Water) 50 ml IV ONETIME PRN PRN Reason: Hypoglycemia Docusate Sodium (Colace) 100 mg PO BID PRN PRN Reason: Constipation Enoxaparin Sodium (Lovenox) 40 mg SUBCUT QPM [facility] Last Admin: 10/22/17 16:50 Dose: 40 mg Furosemide (Lasix) 40 mg PO DAILY [facility] Last Admin: 10/23/17 08:50 Dose: 40 mg Ampicillin Sodium/Sulbactam (Sodium 1.5 gm/ Sodium Chloride) 50 mls @ 100 mls/ hr IV Q6H [facility] Last Admin: 10/23/17 09:49 Dose: 100 mls/hr Insulin Aspart (Novolog) 0 unit SUBCUT QIDACANDBED [facility] PRN Reason: Protocol Last Admin: 10/23/17 11:55 Dose: 8 units Insulin Detemir (Levemir) 17 unit SUBCUT BID [facility] Last Admin: 10/23/17 08:51 Dose: 17 units Labetalol HCl (Normodyne) 200 mg PO BID [facility] Last Admin: 10/23/17 08:50 Dose: 200 mg Levothyroxine Sodium (Levothyroxine) 75 mcg PO ACBREAKFAST [facility] Last Admin: 10/23/17 07:46 Dose: 75 mcg Levothyroxine Sodium (Synthroid) 50 mcg PO ACBREAKFAST [facility] Last Admin: 10/23/17 07:46 Dose: 50 mcg Magnesium Hydroxide (Milk Of Magnesia) 30 ml PO Q12H PRN PRN Reason: Constipation Metolazone (Zaroxolyn) 2.5 mg PO DAILY [facility] Last Admin: 10/23/17 08:50 Dose: 2.5 mg Nitroglycerin (Nitrostat) 0.4 mg SL ASDIRECTED PRN PRN Reason: Chest Pain Ondansetron HCl (Zofran) 4 mg IV Q4H PRN PRN Reason: Nausea/Vomiting Oseltamivir Phosphate (Tamiflu) 30 mg PO BID [facility] Last Admin: 10/23/17 08:50 Dose: 30 mg Oxycodone HCl (Oxycodone) 5 mg PO Q4H PRN PRN Reason: Pain (moderate 4-6) Polyethylene Glycol (Miralax) 17 gm PO DAILY PRN PRN Reason: Constipation Sodium Chloride (Saline Flush) 10 ml FLUSH ASDIRECTED PRN PRN Reason: Keep Vein Open Discontinued Medications Acetaminophen (Tylenol Extra Strength) 1,000 mg PO ONETIME ONE Stop: 10/22/17 14:24 Last Admin: 10/22/17 14:25 Dose: 1,000 mg Albuterol/Ipratropium (Duoneb 3.0-0.5 Mg/3 Ml) 3 ml NEB ONETIME ONE Stop: 10/22/17 13:25 Last Admin: 10/22/17 13:52 Dose: 3 ml Sodium Chloride (Normal Saline) 1,000 mls @ 1,000 mls/hr IV ASDIRECTED [facility] Last Admin: 10/22/17 11:41 Dose: 1,000 mls/hr Sodium Chloride (Normal Saline) 500 mls @ 250 mls/hr IV .BOLUS [facility] Stop: 10/22/17 22:04 Sodium Chloride (Normal Saline) 1,000 mls @ 125 mls/hr IV ASDIRECTED [facility] Last Admin: 10/23/17 02:00 Dose: 125 mls/hr Ondansetron HCl (Zofran Odt) 4 mg PO ONETIME ONE Stop: 10/22/17 10:44 Last Admin: 10/22/17 10:53 Dose: 4 mg Ondansetron HCl (Zofran) 4 mg IVPUSH ONETIME ONE Stop: 10/22/17 12:51 Last Admin: 10/22/17 13:07 Dose: 4 mg - Exam General: Alert, Oriented, Cooperative, No Acute Distress Lungs: Normal Respiratory Effort, Rhonchi. No: Decreased Breath Sounds, Wheezing Cardiovascular: Regular Rate, Regular Rhythm, No Murmurs GI/Abdominal Exam: Soft, Non-Tender, No Organomegaly, No Distention Extremities: Non-Tender, No Pedal Edema Skin: Warm, Dry, Intact - Problem List Review Problem List Initiated/Reviewed/Updated: Yes - My Orders Last 24 Hours: My Active Orders 10/25/17 07:30 GLUCOSE POC LAB TO COLLECT [POC] QIDACANDBED 10/25/17 11:30 GLUCOSE POC LAB TO COLLECT [POC] QIDACANDBED 10/25/17 16:30 GLUCOSE POC LAB TO COLLECT [POC] QIDACANDBED 10/25/17 21:00 GLUCOSE POC LAB TO COLLECT [POC] QIDACANDBED 10/26/17 07:30 GLUCOSE POC LAB TO COLLECT [POC] QIDACANDBED 10/26/17 11:30 GLUCOSE POC LAB TO COLLECT [POC] QIDACANDBED 10/26/17 16:30 GLUCOSE POC LAB TO COLLECT [POC] QIDACANDBED 10/26/17 21:00 GLUCOSE POC LAB TO COLLECT [POC] QIDACANDBED 10/27/17 07:30 GLUCOSE POC LAB TO COLLECT [POC] QIDACANDBED 10/27/17 11:30 GLUCOSE POC LAB TO COLLECT [POC] QIDACANDBED 10/27/17 16:30 GLUCOSE POC LAB TO COLLECT [POC] QIDACANDBED 10/27/17 21:00 GLUCOSE POC LAB TO COLLECT [POC] QIDACANDBED 10/22/17 15:16 Resuscitation Status Routine 10/22/17 16:00 Albuterol/Ipratropium [DuoNeb 3.0-0.5 MG/3 ML] 3 ml NEB QIDRT Ampicillin/Sulbactam Na [Unasyn] 1.5 gm Sodium Chloride 0.9% [Normal Saline] 50 ml IV Q6H 10/22/17 16:03 Patient Status [ADT] Routine Ambulate [RC] QID Blood Glucose Check, Bedside [RC] QIDACANDBED Communication Order [RC] STAT Diabetes Education [RC] Click to Edit Height and Weight [RC] DAILY Intake and Output [RC] QSHIFT Notify Provider Vital Signs [RC] ASDIRECTED Notify Provider [RC] PRN Oxygen Therapy [RC] PRN Peripheral IV Care [RC] . DIRECTED Pulse Oximetry [RC] CONTINUOUS RT Aerosol Therapy [RC] ASDIRECTED Up ad Vandana [RC] ASDIRECTED Up to Chair [RC] QID Vital Signs [RC] Q4H Acetaminophen [Tylenol] 650 mg PO Q4H PRN Albuterol [Proventil Neb Soln] 2.5 mg NEB Q4H PRN Dextrose 50% in Water 50 ml IV ONETIME PRN Dextrose [Glutose 15] 15 gm PO ONETIME PRN Docusate Sodium [Colace] 100 mg PO BID PRN Magnesium Hydroxide [Milk of Magnesia] 30 ml PO Q12H PRN Ondansetron [Zofran] 4 mg IV Q4H PRN Polyethylene Glycol 3350 [MiraLAX] 17 gm PO DAILY PRN Sodium Chloride 0.9% [Saline Flush] 10 ml FLUSH ASDIRECTED PRN oxyCODONE 5 mg PO Q4H PRN Peripheral IV Insertion Adult [OM.PC] Routine 10/22/17 16:30 Oseltamivir [Tamiflu] 30 mg PO BID 10/22/17 17:00 Enoxaparin [Lovenox] 40 mg SUBCUT QPM Insulin Aspart [NovoLOG] See Protocol SUBCUT QIDACANDBED 10/22/17 Dinner 2 Gram Sodium Diet [DIET] Consistent Carbohydrate Diet [DIET] 10/23/17 07:30 Levothyroxine [Synthroid] 50 mcg PO ACBREAKFAST 10/23/17 12:38 Convert IV to Saline Lock [OM.PC] Routine 10/23/17 16:30 GLUCOSE POC LAB TO COLLECT [POC] QIDACANDBED 10/23/17 21:00 GLUCOSE POC LAB TO COLLECT [POC] QIDACANDBED 10/24/17 05:00 CBC WITH AUTO DIFF [HEME] Timed COMPREHENSIVE METABOLIC PN,CMP [CHEM] Timed 10/24/17 07:30 GLUCOSE POC LAB TO COLLECT [POC] QIDACANDBED 10/24/17 11:30 GLUCOSE POC LAB TO COLLECT [POC] QIDACANDBED 10/24/17 16:30 GLUCOSE POC LAB TO COLLECT [POC] QIDACANDBED 10/24/17 21:00 GLUCOSE POC LAB TO COLLECT [POC] QIDACANDBED - Plan Plan:: ASSESSMENT AND PLAN INFLUENZA A INFECTION-associated symptoms of shortness of breath cough, myalgias , fever, and weakness. Improved since admission with less shortness of breath and cough. -Saline lock IV -Pain medication as needed for myalgias -Tamiflu 75 mg by mouth twice a day 5 days CHOLECYSTITIS-symptomatically improved since admission with no further nausea or vomiting, liver studies improved -Anti-medic therapy as needed -Unasyn 1.5 g IV every 6 hours -Consider further evaluation with HIDA scan when respiratory symptoms have improved HYPOXIC RESPIRATORY FAILURE-secondary to influenza A, also has known congestive heart failure with preserved left ventricular function. Oxygenation has improved but still requiring some supplemental oxygen -Supplemental oxygen as needed -Nebulized albuterol and duo nebs as needed -Continuous pulse oximetry CONGESTIVE HEART FAILURE WITH PRESERVED LEFT VENTRICULAR FUNCTION-RT failure seems to be well compensated at the present time -Continue outpatient medical regimen CORONARY ARTERY DISEASE-currently asymptomatic -Continue outpatient medical regimen CHRONIC KIDNEY DISEASE STAGE III -Closely monitor urine output and renal function during hospital stay TYPE 2 DIABETES MELLITUS -Continue usual dose of long-acting insulin -Hold usual dose of NovoLog -4 times a day glucometers -Moderate dose sliding scale NovoLog MAINTENANCE ISSUES -DVT prophylaxis; Lovenox 40 mg subcutaneous daily -GI prophylaxis; not indicated -Muhammad catheter; not indicated -Nutrition; consistent carbohydrate, 2 g sodium diet -Nicotine dependence; not required CODE STATUS-FULL CODE ADMISSION STATUS-patient will be admitted to inpatient status, expect at least a 2 night hospital stay for evaluation and management of problems as outlined above. At the time of this admission I do not reasonably expected evaluation and management of this problem will require more than a 96 hour hospital stay. DISPOSITION-anticipate discharge to home after the hospital stay. PRIMARY CARE PROVIDER-Erwin Núñez
[2017-10-23] MEDS: Enoxaparin 40 MG/0.4 ML Syringe SUBCUT SCH (16:28)
[2017-10-23] MEDS: Acetaminophen 325 MG Tab PO PRN ×2 (18:12→23:46)
[2017-10-23] MEDS: atorvaSTATin 20 MG Tab PO SCH (20:26)
[2017-10-24] MEDS: Ampicillin/Sulbactam Na 1.5 GM in Sodium Chloride 0.9% 50 ML IV SCH ×2 (03:33→11:54)
[2017-10-24] MEDS: Levothyroxine 75 MCG Tab PO SCH (07:33)
[2017-10-24] MEDS: Levothyroxine 50 MCG Tab PO SCH (07:33)
[2017-10-24] MEDS: Insulin Aspart 100 Units/ML 3 ML Pen SUBCUT SCH ×2 (07:35→12:40)
[2017-10-24] MEDS: Albuterol/Ipratropium 3.0-0.5 MG/3 ML Neb Soln NEB SCH ×2 (08:17→11:26)
[2017-10-24] MEDS: Aspirin 81 MG Tab.Chew PO SCH (10:40)
[2017-10-24] MEDS: Furosemide 40 MG Tab PO SCH (10:41)
[2017-10-24] MEDS: Citalopram 20 MG Tab PO SCH (10:41)
[2017-10-24] MEDS: Labetalol 100 MG Tab PO SCH (10:42)
[2017-10-24] MEDS: Oseltamivir 30 MG Cap PO SCH (10:43)
[2017-10-24] MEDS: Metolazone 2.5 MG Tab PO SCH (10:43)
[2017-10-24] MEDS: amLODIPine 10 MG Tab PO SCH (10:43)
[2017-10-24] MEDS: Insulin Detemir 100 Units/ML 3 ML Pen SUBCUT SCH (10:45)
[2017-10-24 11:02] VITALS: BP 130/75
--- NOTE | 2017-10-24 11:33 | PCM.DCSUM1 ---
Discharge Summary - Hospital Course Brief History: Ms. Roach is a 67-year-old woman who was admitted through the emergency department with right upper quadrant abdominal pain, nausea vomiting, shortness of breath, fever, and weakness secondary to influenza a and cholecystitis. - Discharge Data Discharge Date: 10/24/17 Discharge Disposition: Home, Self-Care 01 Condition: Fair - Discharge Diagnosis/Problem(s) (1) Cholecystitis SNOMED Code(s): 30038571 ICD Code: K81.9 - CHOLECYSTITIS, UNSPECIFIED Status: Acute Current Visit : Yes (2) Influenza A SNOMED Code(s): 848232779 ICD Code: J10.1 - FLU DUE TO OTH IDENT INFLUENZA VIRUS W OTH RESP MANIFEST Status: Acute Current Visit: Yes (3) Nausea & vomiting SNOMED Code(s): 40718091 ICD Code: R11.2 - NAUSEA WITH VOMITING, UNSPECIFIED Status: Acute Current Visit: Yes Qualifiers: Vomiting type: unspecified Vomiting Intractability: non-intractable Qualified Code(s): R11.2 - Nausea with vomiting, unspecified - Patient Summary/Data Hospital Course: Ms. Roach is a 67-year-old woman who developed shortness of breath, cough, fever, and weakness within 48 hours prior to admission. On the day prior to admission also developed some right upper quadrant abdominal pain associated with nausea and vomiting. She presented to the emergency department for further evaluation, chest x-ray showed no obvious infiltrates in her white blood cell count was within normal range. Antigen testing for influenza A was found to be positive and this was felt to be the underlying cause of her respiratory symptoms. Liver enzymes were elevated specifically alkaline phosphatase and bilirubin. Ultrasound was obtained which did show mild thickening of the gallbladder wall with surrounding pericolic systolic fluid. These findings were felt to be consistent with underlying cholecystitis. She was admitted to the hospital and given IV fluids or hydration in addition to Tamiflu and IV antibiotic therapy with Unasyn for management of the cholecystitis. Over the next 2 days of hospitalization she felt significantly improved although at the time of discharge continued to require supplemental oxygen. She had a documented oxygen saturation of 86% on room air, because of this will be discharged home with oxygen 2 L/m via nasal cannula. Her nausea and vomiting resolved during hospital stay with no further abdominal discomfort and improvement in liver tests. She will remain on antibiotic therapy with Augmentin 875 twice daily for an additional 5 days as well as Tamiflu 30 mg twice daily for an additional 3 days. CCK stimulated HIDA scan will be scheduled for further evaluation of her gallbladder. Activity will be as tolerated and she will remain on a diabetic low sodium diet. Follow-up appointment will be scheduled with her primary care provider within one week after the HIDA scan has been obtained. - Patient Instructions Diet: Low Sodium, Diabetic Diet Activity: As Tolerated Other/Special Instructions: Please schedule CCK stimulated HIDA scan this week, for further evaluation of abdominal discomfort and liver enzyme elevation. Please schedule follow-up appointment with primary care provider within one week after HIDA scan has been obtained. - Discharge Plan Prescriptions/Med Rec: Amoxicillin/Potassium Clav [Augmentin 875-125 Tablet] 1 each PO BID #10 tablet Lactobacillus Acidophilus [Acidophilus Lactobacillus] 1 each PO BID #60 capsule Oseltamivir [Tamiflu] 30 mg PO BID #6 cap Home Medications: Home Meds Aspirin [Niko Chewable Aspirin] 81 mg PO DAILY 11/21/13 [History] Insulin Aspart [NovoLOG] 0 units SUBCUT TID 11/21/13 [History] Insulin Detemir [Levemir] 17 units SUBCUT BID 11/21/13 [History] Labetalol [Normodyne] 200 mg PO BID 11/21/13 [History] Levothyroxine 125 mcg PO DAILY 11/21/13 [History] amLODIPine [Norvasc] 10 mg PO DAILY 11/21/13 [History] Furosemide 40 mg PO DAILY 12/10/13 [History] Citalopram Hydrobromide [Celexa] 20 mg PO DAILY 01/15/14 [History] Nitroglycerin [Nitrostat] 0.4 mg SL ASDIRECTED PRN 01/15/14 [History] atorvaSTATin [Lipitor] 80 mg PO BEDTIME 01/15/14 [History] Metolazone 2.5 mg PO DAILY 07/09/16 [History] Amoxicillin/Potassium Clav [Augmentin 875-125 Tablet] 1 each PO BID #10 tablet 10/24/17 [Rx] Lactobacillus Acidophilus [Acidophilus Lactobacillus] 1 each PO BID #60 capsule 10/24/17 [Rx] Oseltamivir [Tamiflu] 30 mg PO BID #6 cap 10/24/17 [Rx] Patient Handouts: Influenza, Adult, [id number] Referrals: Erwin Núñez, ANA [Primary Care Provider] - - Patient Data Vitals - Most Recent: Last Vital Signs Temp 98.4 F 10/24/17 11:00 Pulse 80 10/24/17 11:00 Resp 18 10/24/17 11:00 BP 130/75 10/24/17 11:00 Pulse Ox 94 L 10/24/17 11:00 Weight - Most Recent: 163 lb 12.8 oz I&O - Last 24 hours: Intake & Output 10/23/17 10/24/17 10/24/17 22:59 06:59 14:59 Intake Total 1390 50 480 Output Total 400 600 600 Balance 990 -550 -120 Lab Results - Last 24 hrs: Laboratory Results - last 24 hr 10/24/17 10/24/17 Range/Units 05:30 05:30 WBC 3.1 L (4.5-11.0) K/uL RBC 3.35 (3.30-5.50) M/uL Hgb 10.3 L (12.0-15.0) g/dL Hct 31.5 L (36.0-48.0) % MCV 94 (80-98) fL MCH 31 (27-31) pg MCHC 33 (32-36) % Plt Count 162 (150-400) K/uL Neut % (Auto) 33 L (36-66) % Lymph % (Auto) 39 (24-44) % Burt % (Auto) 25 H (2-6) % Eos % (Auto) 3 (2-4) % Baso % (Auto) 1 (0-1) % Sodium 135 L (140-148) mmol/L Potassium 3.6 (3.6-5.2) mmol/L Chloride 99 L (100-108) mmol/L Carbon Dioxide 27 (21-32) mmol/L Anion Gap 12.6 (5.0-14.0) mmol/L BUN 44 H (7-18) mg/dL Creatinine 1.7 H (0.6-1.0) mg/dL Est Cr Clr Drug Dosing TNP Estimated GFR (MDRD) 30 L (>60) Glucose 83 (74-106) mg/dL Calcium 8.4 L (8.5-10.1) mg/dL Total Bilirubin 1.1 H (0.2-1.0) mg/dL AST 57 H (15-37) U/L ALT 38 (12-78) U/L Alkaline Phosphatase 234 H (46-116) U/L Total Protein 6.4 (6.4-8.2) g/dL Albumin 3.4 (3.4-5.0) g/dL Globulin 3.0 (2.3-3.5) g/dL Albumin/Globulin Ratio 1.1 L (1.2-2.2) Med Orders - Current: Current Medications Acetaminophen (Tylenol) 650 mg PO Q4H PRN PRN Reason: Pain (Mild 1-3)/fever Last Admin: 10/23/17 23:46 Dose: 650 mg Albuterol (Proventil Neb Soln) 2.5 mg NEB Q4H PRN PRN Reason: Shortness Of Breath/wheezing Albuterol/Ipratropium (Duoneb 3.0-0.5 Mg/3 Ml) 3 ml NEB QIDRT [facility] Last Admin: 10/24/17 08:17 Dose: 3 ml Amlodipine Besylate (Norvasc) 10 mg PO DAILY [facility] Last Admin: 10/24/17 10:43 Dose: 10 mg Aspirin (Aspirin) 81 mg PO DAILY [facility] Last Admin: 10/24/17 10:40 Dose: 81 mg Atorvastatin Calcium (Lipitor) 80 mg PO BEDTIME [facility] Last Admin: 10/23/17 20:26 Dose: 80 mg Citalopram Hydrobromide (Celexa) 20 mg PO DAILY [facility] Last Admin: 10/24/17 10:41 Dose: Not Given Dextrose (Glutose 15) 15 gm PO ONETIME PRN PRN Reason: Hypoglycemia Dextrose/Water (Dextrose 50% In Water) 50 ml IV ONETIME PRN PRN Reason: Hypoglycemia Docusate Sodium (Colace) 100 mg PO BID PRN PRN Reason: Constipation Enoxaparin Sodium (Lovenox) 40 mg SUBCUT QPM [facility] Last Admin: 10/23/17 16:28 Dose: 40 mg Furosemide (Lasix) 40 mg PO DAILY [facility] Last Admin: 10/24/17 10:41 Dose: 40 mg Ampicillin Sodium/Sulbactam (Sodium 1.5 gm/ Sodium Chloride) 50 mls @ 100 mls/ hr IV Q6H [facility] Last Admin: 10/24/17 03:33 Dose: 100 mls/hr Insulin Aspart (Novolog) 0 unit SUBCUT QIDACANDBED [facility] PRN Reason: Protocol Last Admin: 10/24/17 07:35 Dose: Not Given Insulin Detemir (Levemir) 17 unit SUBCUT BID [facility] Last Admin: 10/24/17 10:45 Dose: 14 units Labetalol HCl (Normodyne) 200 mg PO BID [facility] Last Admin: 10/24/17 10:42 Dose: 200 mg Levothyroxine Sodium (Levothyroxine) 75 mcg PO ACBREAKFAST [facility] Last Admin: 10/24/17 07:33 Dose: 75 mcg Levothyroxine Sodium (Synthroid) 50 mcg PO ACBREAKFAST [facility] Last Admin: 10/24/17 07:33 Dose: 50 mcg Magnesium Hydroxide (Milk Of Magnesia) 30 ml PO Q12H PRN PRN Reason: Constipation Metolazone (Zaroxolyn) 2.5 mg PO DAILY [facility] Last Admin: 10/24/17 10:43 Dose: 2.5 mg Nitroglycerin (Nitrostat) 0.4 mg SL ASDIRECTED PRN PRN Reason: Chest Pain Ondansetron HCl (Zofran) 4 mg IV Q4H PRN PRN Reason: Nausea/Vomiting Oseltamivir Phosphate (Tamiflu) 30 mg PO BID [facility] Last Admin: 10/24/17 10:43 Dose: 30 mg Oxycodone HCl (Oxycodone) 5 mg PO Q4H PRN PRN Reason: Pain (moderate 4-6) Polyethylene Glycol (Miralax) 17 gm PO DAILY PRN PRN Reason: Constipation Sodium Chloride (Saline Flush) 10 ml FLUSH ASDIRECTED PRN PRN Reason: Keep Vein Open Discontinued Medications Acetaminophen (Tylenol Extra Strength) 1,000 mg PO ONETIME ONE Stop: 10/22/17 14:24 Last Admin: 10/22/17 14:25 Dose: 1,000 mg Albuterol/Ipratropium (Duoneb 3.0-0.5 Mg/3 Ml) 3 ml NEB ONETIME ONE Stop: 10/22/17 13:25 Last Admin: 10/22/17 13:52 Dose: 3 ml Sodium Chloride (Normal Saline) 1,000 mls @ 1,000 mls/hr IV ASDIRECTED [facility] Last Admin: 10/22/17 11:41 Dose: 1,000 mls/hr Sodium Chloride (Normal Saline) 500 mls @ 250 mls/hr IV .BOLUS [facility] Stop: 10/22/17 22:04 Sodium Chloride (Normal Saline) 1,000 mls @ 125 mls/hr IV ASDIRECTED [facility] Last Admin: 10/23/17 02:00 Dose: 125 mls/hr Ondansetron HCl (Zofran Odt) 4 mg PO ONETIME ONE Stop: 10/22/17 10:44 Last Admin: 10/22/17 10:53 Dose: 4 mg Ondansetron HCl (Zofran) 4 mg IVPUSH ONETIME ONE Stop: 10/22/17 12:51 Last Admin: 10/22/17 13:07 Dose: 4 mg *Q Meaningful Use (DIS) - VTE *Q VTE Criteria *Q: - Stroke *Q Stroke Criteria *Q: - AMI *Q AMI Criteria *Q:
== END 2017-10-24 15:06 | disposition home or self-care (01) | DRG 193 ==
LOC: JP.ED 09:41 → JP.MS 15:13
PROVIDERS: ADMIT Hospitalist; ATTEND Hospitalist
DX: J10.1 Influenza due to other identified influenza virus with other respiratory manifestations (principal); J96.91 Respiratory failure, unspecified with hypoxia; K81.0 Acute cholecystitis; I13.0 Hypertensive heart and chronic kidney disease with heart failure and stage 1 through stage 4 chronic kidney disease, or unspecified chronic kidney disease; I50.30 Unspecified diastolic (congestive) heart failure; R17 Unspecified jaundice; I25.10 Atherosclerotic heart disease of native coronary artery without angina pectoris; E11.22 Type 2 diabetes mellitus with diabetic chronic kidney disease; N18.3 Chronic kidney disease, stage 3 (moderate); R74.8 Abnormal levels of other serum enzymes; E78.00 Pure hypercholesterolemia, unspecified; M81.0 Age-related osteoporosis without current pathological fracture; E05.90 Thyrotoxicosis, unspecified without thyrotoxic crisis or storm; F32.9 Major depressive disorder, single episode, unspecified; F41.9 Anxiety disorder, unspecified; I25.2 Old myocardial infarction; Z95.5 Presence of coronary angioplasty implant and graft; Z79.82 Long term (current) use of aspirin; Z79.4 Long term (current) use of insulin; Z90.5 Acquired absence of kidney; Z95.1 Presence of aortocoronary bypass graft; Z79.899 Other long term (current) drug therapy
CPT/HCPCS: 36415; 76705; 76705-26; 80053; 81001; 82962; 83735; 84443; 85025; 87804; 94640; 96361; 96374; 99285-25; A9270-GY; J0287; J1650; J2405; J7040; J7050; J7620

== ENCOUNTER 2018-12-31 11:54 | Emergency (ER) | payer MEDICARE ==
[2018-12-31] MEDS ORDERED: Sodium Chloride 0.9% 10 ML Syringe FLUSH PRN (12:37)
[2018-12-31] MEDS ORDERED: Ondansetron 4 MG/2 ML SDV IVPUSH ONE (12:38)
--- NOTE | 2018-12-31 12:40 | EDM.PDOC ---
ED HPI GENERAL MEDICAL PROBLEM - General Chief Complaint: Gastrointestinal Problem Stated Complaint: THROWINF UP ALL DAY/BLOODLY Time Seen by Provider: 12/31/18 12:34 Source of Information: Reports: Patient, Family, RN Notes Reviewed History Limitations: Reports: No Limitations - History of Present Illness INITIAL COMMENTS - FREE TEXT/NARRATIVE: 68-year-old female presents emergency department today complaint of bloody nose , she does have a history of nosebleeds has not had one for several years. This particular man had difficulty getting it stopped last night does admit to swallowing moderate amount of blood started vomiting in the evening that now has slowed down bleeding has stopped but she is feeling poorly and is still nauseated - Related Data Allergies Allergy/AdvReac Type Severity Reaction Status Date / Time Sulfa (Sulfonamide Allergy Rash Verified 09/21/16 21:30 Antibiotics) Home Meds: Home Meds Aspirin [Niko Chewable Aspirin] 81 mg PO DAILY 11/21/13 [History] Insulin Aspart [NovoLOG] 0 units SUBCUT TID 11/21/13 [History] Insulin Detemir [Levemir] 17 units SUBCUT BID 11/21/13 [History] Labetalol [Normodyne] 200 mg PO BID 11/21/13 [History] Levothyroxine 125 mcg PO DAILY 11/21/13 [History] amLODIPine [Norvasc] 10 mg PO DAILY 11/21/13 [History] Furosemide 40 mg PO DAILY 12/10/13 [History] Citalopram Hydrobromide [Celexa] 20 mg PO DAILY 01/15/14 [History] Nitroglycerin [Nitrostat] 0.4 mg SL ASDIRECTED PRN 01/15/14 [History] atorvaSTATin [Lipitor] 80 mg PO BEDTIME 01/15/14 [History] Amoxicillin/Potassium Clav [Augmentin 875-125 Tablet] 1 each PO BID #10 tablet 10/24/17 [Rx] Lactobacillus Acidophilus [Acidophilus Lactobacillus] 1 each PO BID #60 capsule 10/24/17 [Rx] Oseltamivir [Tamiflu] 30 mg PO BID #6 cap 10/24/17 [Rx] Past Medical History HEENT History: Reports: Epistaxis, Impaired Vision Cardiovascular History: Reports: CAD, High Cholesterol, Hypertension, [place], SOB on Exertion, Stents Respiratory History: Reports: Pneumonia, Recurrent Genitourinary History: Reports: Other (See Below) Other Genitourinary History: nephrectomy, THERAPIST RRT History: Reports: Musculoskeletal History: Reports: Osteoporosis Psychiatric History: Reports: Anxiety, Depression Endocrine/Metabolic History: Reports: Diabetes, Type I, Hyperthyroidism Hematologic History: Reports: Anemia, B12 Deficiency, Blood Transfusion(s) - Infectious Disease History Infectious Disease History: Reports: Chicken Pox, Measles - Past Surgical History Cardiovascular Surgical History: Reports: Coronary Artery Bypass, Coronary Artery Stent GI Surgical History: Reports: Appendectomy, Colonoscopy Social & Family History - Family History Cardiac: Reports: Heart Failure, MO - Tobacco Use Smoking Status *Q: Never Smoker - Caffeine Use Caffeine Use: Reports: Coffee - Recreational Drug Use Recreational Drug Use: No ED ROS ENT - Review of Systems Review Of Systems: See Below Constitutional: Reports: No Symptoms HEENT: Reports: Nosebleed Respiratory: Reports: No Symptoms Cardiovascular: Reports: No Symptoms GI/Abdominal: Reports: Nausea, Vomiting. Denies: Abdominal Pain ED EXAM, ENT - Physical Exam Exam: See Below Exam Limited By: No Limitations General Appearance: Alert, WD/WN, No Apparent Distress Nose: Normal Inspection, Dried Blood. No: Nasal Tenderness, Active Bleeding Mouth/Throat: Normal Inspection, Normal Gums, Normal Lips, Normal Oropharynx, Normal Teeth Head: Atraumatic, Normocephalic Neck: Normal Inspection, Supple, Non-Tender, Full Range of Motion Respiratory/Chest: No Respiratory Distress, Lungs Clear, Normal Breath Sounds, No Accessory Muscle Use Cardiovascular: Regular Rate, Rhythm, No Murmur GI/Abdominal: Soft, Non-Tender Course - Vital Signs Last Recorded V/S: Last Vital Signs Temp 97.3 F 12/31/18 12:11 Pulse 68 12/31/18 15:07 Resp 16 12/31/18 12:11 BP 124/44 L 12/31/18 15:07 Pulse Ox 99 12/31/18 15:07 - Orders/Labs/Meds Orders: Active Orders 24 hr Category Date Time Status Peripheral IV Care [RC] . DIRECTED Care 12/31/18 12:37 Active Lactated Ringers [Ringers, Lactated] 1,000 ml Med 12/31/18 12:45 Active IV ASDIRECTED Sodium Chloride 0.9% [Saline Flush] Med 12/31/18 12:37 Active 10 ml FLUSH ASDIRECTED PRN Peripheral IV Insertion Adult [OM.PC] Urgent Oth 12/31/18 12:37 Ordered Medication Orders Lactated Ringer's (Ringers, Lactated) 1,000 mls @ 999 mls/hr IV ASDIRECTED JHONATAN Last Admin: 12/31/18 13:16 Dose: 999 mls/hr Sodium Chloride (Saline Flush) 10 ml FLUSH ASDIRECTED PRN PRN Reason: Keep Vein Open Last Admin: 12/31/18 13:17 Dose: 10 ml Labs: Laboratory Tests 12/31/18 12/31/18 Range/Units 12:37 12:45 WBC 5.8 (4.5-11.0) K/uL RBC 2.81 L (3.30-5.50) M/uL Hgb 8.4 L (12.0-15.0) g/dL Hct 26.3 L (36.0-48.0) % MCV 94 (80-98) fL MCH 30 (27-31) pg MCHC 32 (32-36) % Plt Count 210 (150-400) K/uL Neut % (Auto) 74 H (36-66) % Lymph % (Auto) 17 L (24-44) % [place] % (Auto) 8 H (2-6) % Eos % (Auto) 0 L (2-4) % Baso % (Auto) 0 (0-1) % Sodium 137 L (140-148) mmol/L Potassium 4.7 (3.6-5.2) mmol/L Chloride 99 L (100-108) mmol/L Carbon Dioxide 21 (21-32) mmol/L Anion Gap 21.7 H (5.0-14.0) mmol/L BUN 105 H* D (7-18) mg/dL Creatinine 2.1 H (0.6-1.0) mg/dL Est Cr Clr Drug Dosing 19.62 mL/min Estimated GFR (MDRD) 23 L (>60) Glucose 249 H (74-106) mg/dL Calcium 10.2 H D (8.5-10.1) mg/dL Meds: Medications Generic Name Dose Route Start Last Admin Trade Name Freq PRN Reason Stop Dose Admin Lactated Ringer's 1,000 mls @ 999 mls/hr 12/31/18 12:45 12/31/18 13:16 Ringers, Lactated IV 999 mls/hr ASDIRECTED JHONATAN Administration Sodium Chloride 10 ml 12/31/18 12:37 12/31/18 13:17 Saline Flush FLUSH 10 ml ASDIRECTED PRN Administration Keep Vein Open Discontinued Medications Generic Name Dose Route Start Last Admin Trade Name Caneloq PRN Reason Stop Dose Admin Ondansetron HCl 4 mg 12/31/18 12:38 12/31/18 13:15 Zofran IVPUSH 12/31/18 12:39 4 mg ONETIME ONE Administration Departure - Departure Time of Disposition: 15:38 Disposition: Home, Self-Care 01 Condition: Fair Clinical Impression: Vomiting - Discharge Information Referrals: Kei Kilgore, RUST PROOFER [Primary Care Provider] - Forms: ED Department Discharge Additional Instructions: Use Zofran as needed for nausea and vomiting symptoms, Please followup with your primary care provider in 3-5 days if not better, please call return to the emergency department with worsening of symptoms. - My Orders Last 24 Hours: My Active Orders 12/31/18 12:37 Peripheral IV Care [RC] . DIRECTED Sodium Chloride 0.9% [Saline Flush] 10 ml FLUSH ASDIRECTED PRN Peripheral IV Insertion Adult [OM.PC] Urgent 12/31/18 12:45 Lactated Ringers [Ringers, Lactated] 1,000 ml IV ASDIRECTED - Assessment/Plan Last 24 Hours: My Active Orders 12/31/18 12:37 Peripheral IV Care [RC] . DIRECTED Sodium Chloride 0.9% [Saline Flush] 10 ml FLUSH ASDIRECTED PRN Peripheral IV Insertion Adult [OM.PC] Urgent 12/31/18 12:45 Lactated Ringers [Ringers, Lactated] 1,000 ml IV ASDIRECTED Plan: Assessment Acuity = acute Site and laterality = nausea and vomiting with dehydration Etiology = secondary to epistaxis with swallowing moderate amount of blood Manifestations = none Location of injury = Home Lab values = hemoglobin low at 8.4 consistent normochromic anemia BUN elevated at 105 and creatinine elevated 2.1 acute renal failure stage G for both consistent with intravascular volume depletion Plan She had good improvement with Zofran and 1 L of fluids was able to tolerate liquids and a meal, plan is to discharge home with Zofran 4 mg ODT 1 tab by mouth 3 times a day when necessary total #10 she will continue to push fluids and resume her regular medication she has a follow-up appointment with her primary care on Wednesday This note was dictated using [employer] voice recognition software please call with any questions on syntax or grammar.
[2018-12-31] MEDS ORDERED: Lactated Ringers 1,000 ML IV SCH (12:45)
[2018-12-31 15:07] VITALS: BP 124/44
== END 2018-12-31 16:06 | disposition home or self-care (01) ==
LOC: JP.ED 11:54
DX: R11.2 Nausea with vomiting, unspecified (principal); I25.10 Atherosclerotic heart disease of native coronary artery without angina pectoris; E78.00 Pure hypercholesterolemia, unspecified; I10 Essential (primary) hypertension; I25.2 Old myocardial infarction; F41.9 Anxiety disorder, unspecified; F32.9 Major depressive disorder, single episode, unspecified; E10.9 Type 1 diabetes mellitus without complications; E05.90 Thyrotoxicosis, unspecified without thyrotoxic crisis or storm; Z88.2 Allergy status to sulfonamides; Z79.899 Other long term (current) drug therapy; Z79.82 Long term (current) use of aspirin; Z79.4 Long term (current) use of insulin
CPT/HCPCS: 36415; 80048; 82962; 85025; 96361; 96374; 99283; J2405; J7120

== ENCOUNTER 2018-12-31 22:34 | Emergency (ER) | payer MEDICARE ==
--- NOTE | 2018-12-31 23:28 | EDM.PDOC ---
ED HPI GENERAL MEDICAL PROBLEM - General Chief Complaint: Gastrointestinal Problem Stated Complaint: MEDICAL [facility]IA [facility] Time Seen by Provider: 12/31/18 22:40 Source of Information: Reports: Patient History Limitations: Reports: No Limitations - History of Present Illness INITIAL COMMENTS - FREE TEXT/NARRATIVE: 68-year-old with history of coronary disease status post CABG and stent placement, diabetes, ESRD not yet on dialysis who presents with concerns of loss of consciousness. She was seen in the emergency room earlier today for nausea. This was attributed to ingested blood from epistaxis the day prior. She went home with Zofran after receiving IV fluids. She was at home with her significant other this evening when around 10 PM he heard agonal breathing and found her unresponsive in a chair. This episode lasted for approximately 1 minute. This was after a dose of Zofran. She then regained consciousness. No episode of confusion. She has no history of similar symptoms in the past. No history of seizure disorder. EMS reports normal vitals. Short trip to the emergency room. The patient had another episode where she lost consciousness shortly after arrival in the ED. She was not yet on the monitor. She regained consciousness without any postictal. The patient denies any sensation of palpitations or chest pain. She reports that prior to her previous [place] she had very nonspecific symptoms including nausea and fatigue. She has never experienced chest pain. She denies any bloody stools. She has ongoing dark stool which she attributes to her iron supplementation as this is been present for some time. She reports that she was recently seen in her PCP clinic, noted to have worsening anemia, sounds that she was supposed to receive epo but this has not happened yet. Treatments UNDERCOVER COP: Reports: Other (see below) Other Treatments UNDERCOVER COP: none - Related Data Allergies Allergy/AdvReac Type Severity Reaction Status Date / Time gabapentin Allergy Edema Verified 12/31/18 23:58 Sulfa (Sulfonamide Allergy Rash Verified 12/31/18 22:57 Antibiotics) Home Meds: Home Meds Aspirin [Niko Chewable Aspirin] 81 mg PO DAILY 11/21/13 [History] Insulin Aspart [NovoLOG] 8 units SUBCUT TID 11/21/13 [History] Labetalol [Normodyne] 100 mg PO BID 11/21/13 [History] amLODIPine [Norvasc] 10 mg PO DAILY 11/21/13 [History] Furosemide 40 mg PO DAILY 12/10/13 [History] Nitroglycerin [Nitrostat] 0.4 mg SL ASDIRECTED PRN 01/15/14 [History] atorvaSTATin [Lipitor] 80 mg PO BEDTIME 01/15/14 [History] Ferrous Sulfate 324 mg PO DAILY 12/31/18 [History] Insulin Degludec [Tresiba Flextouch U-100] 25 unit SQ ASDIRECTED 12/31/18 [ History] Levothyroxine 175 mcg PO ACBRK 12/31/18 [History] Losartan [Cozaar] 12.5 mg PO DAILY 12/31/18 [History] Mirtazapine 7.5 mg PO BEDTIME 12/31/18 [History] Sildenafil Citrate [Sildenafil] 20 mg PO TID 12/31/18 [History] Past Medical History HEENT History: Reports: Epistaxis, Impaired Vision Cardiovascular History: Reports: CAD, High Cholesterol, Hypertension, [place], SOB on Exertion, Stents Respiratory History: Reports: Pneumonia, Recurrent Genitourinary History: Reports: Other (See Below) Other Genitourinary History: nephrectomy, [employer] OFF[employer]ER History: Reports: Musculoskeletal History: Reports: Osteoporosis Psychiatric History: Reports: Anxiety, Depression Endocrine/Metabolic History: Reports: Diabetes, Type I, Hyperthyroidism Hematologic History: Reports: Anemia, B12 Deficiency, Blood Transfusion(s) - Infectious Disease History Infectious Disease History: Reports: Chicken Pox - Past Surgical History Cardiovascular Surgical History: Reports: Coronary Artery Bypass, Coronary Artery Stent GI Surgical History: Reports: Appendectomy, Colonoscopy Social & Family History - Family History Cardiac: Reports: Heart Failure, [place] - Tobacco Use Smoking Status *Q: Never Smoker - Caffeine Use Caffeine Use: Reports: Coffee - Recreational Drug Use Recreational Drug Use: No ED ROS GENERAL - Review of Systems Review Of Systems: See Below Constitutional: Reports: No Symptoms. Denies: Fever HEENT: Reports: No Symptoms Respiratory: Reports: No Symptoms. Denies: Shortness of Breath, Pleuritic Chest Pain, Cough Cardiovascular: Reports: Syncope. Denies: Chest Pain, Palpitations Endocrine: Reports: No Symptoms GI/Abdominal: Reports: Black Stool. Denies: Abdominal Pain, Bloody Stool, Diarrhea : Denies: Dysuria, Flank Pain Musculoskeletal: Reports: No Symptoms Skin: Reports: No Symptoms Neurological: Reports: No Symptoms. Denies: Seizure Psychiatric: Reports: No Symptoms Hematologic/Lymphatic: Reports: No Symptoms Immunologic: Reports: No Symptoms ED EXAM, GI/ABD - Physical Exam Exam: See Below Exam Limited By: No Limitations General Appearance: Alert, No Apparent Distress Ears: Normal External Exam Nose: Normal Inspection Throat/Mouth: Normal Inspection Head: Atraumatic, Normocephalic Respiratory/Chest: Lungs Clear Cardiovascular: No: No Murmur GI/Abdominal Exam: Soft, Non-Tender Back Exam: Normal Inspection Extremities: Normal Inspection Neurological: Alert, Oriented Psychiatric: Normal Affect, Normal Mood Skin Exam: Warm, Dry EKG INTERPRETATION EKG Date: 12/31/18 Rhythm: NSR [place]: Normal P-Wave: Present QRS: Wide ST-T: Normal QT: Prolonged Comparison: Change From Previous EKG (lateral T wave inversion) Course - Vital Signs Last Recorded V/S: Last Vital Signs Temp 36.6 C 12/31/18 23:50 Pulse 61 01/01/19 00:54 Resp 13 01/01/19 00:54 BP 91/31 L 01/01/19 00:54 Pulse Ox 98 01/01/19 00:54 - Orders/Labs/Meds Orders: Active Orders 24 hr Category Date Time Status EKG Documentation Completion [RC] ASDIRECTED Care 12/31/18 22:47 Active CXR [Chest 1V Frontal] [CR] Stat Exams 01/01/19 01:36 Ordered PATIENT RETYPE [BBK] Stat Lab 12/31/18 23:13 Results RED BLOOD CELLS LP [BBK] Stat Lab 01/01/19 01:58 Results TYPE AND SCREEN [BBK] Stat Lab 12/31/18 23:13 Results Transfuse Red Blood Cells [COMM] Urgent Oth 12/31/18 23:28 Ordered EKG 12 Lead [EK] Routine Ther 12/31/18 22:46 Ordered Labs: Laboratory Tests 12/31/18 12/31/18 12/31/18 Range/Units 22:57 22:57 22:57 WBC 5.2 (4.5-11.0) K/uL RBC 2.33 L (3.30-5.50) M/uL Hgb 7.0 L (12.0-15.0) g/dL Hct 21.9 L (36.0-48.0) % MCV 94 (80-98) fL MCH 30 (27-31) pg MCHC 32 (32-36) % Plt Count 175 (150-400) K/uL PT (9.5-12.0) sec INR (0.80-1.20) Sodium 136 L (140-148) mmol/L Potassium 4.2 (3.6-5.2) mmol/L Chloride 100 (100-108) mmol/L Carbon Dioxide 20 L (21-32) mmol/L Anion Gap 20.2 H (5.0-14.0) mmol/L BUN 113 H* (7-18) mg/dL Creatinine 2.5 H (0.6-1.0) mg/dL Est Cr Clr Drug Dosing 16.50 mL/min Estimated GFR (MDRD) 19 L (>60) Glucose 222 H (74-106) mg/dL Calcium 9.3 (8.5-10.1) mg/dL Total Bilirubin 1.2 H (0.2-1.0) mg/dL AST 32 (15-37) U/L ALT 31 (12-78) U/L Alkaline Phosphatase 206 H (46-116) U/L Troponin I 0.660 H* (0.000-0.056) ng/mL Total Protein 6.8 (6.4-8.2) g/dL Albumin 3.3 L (3.4-5.0) g/dL Globulin 3.5 (2.3-3.5) g/dL Albumin/Globulin Ratio 0.9 L (1.2-2.2) Blood Type Gel Antibody Screen Crossmatch 12/31/18 12/31/18 Range/Units 23:13 23:13 WBC (4.5-11.0) K/uL RBC (3.30-5.50) M/uL Hgb (12.0-15.0) g/dL Hct (36.0-48.0) % MCV (80-98) fL MCH (27-31) pg MCHC (32-36) % Plt Count (150-400) K/uL PT 14.2 H (9.5-12.0) sec INR 1.31 H (0.80-1.20) Sodium (140-148) mmol/L Potassium (3.6-5.2) mmol/L Chloride (100-108) mmol/L Carbon Dioxide (21-32) mmol/L Anion Gap (5.0-14.0) mmol/L BUN (7-18) mg/dL Creatinine (0.6-1.0) mg/dL Est Cr Clr Drug Dosing mL/min Estimated GFR (MDRD) (>60) Glucose (74-106) mg/dL Calcium (8.5-10.1) mg/dL Total Bilirubin (0.2-1.0) mg/dL AST (15-37) U/L ALT (12-78) U/L Alkaline Phosphatase (46-116) U/L Troponin I (0.000-0.056) ng/mL Total Protein (6.4-8.2) g/dL Albumin (3.4-5.0) g/dL Globulin (2.3-3.5) g/dL Albumin/Globulin Ratio (1.2-2.2) Blood Type O POSITIVE Gel Antibody Screen Negative Crossmatch See Detail Meds: Medications Discontinued Medications Generic Name Dose Route Start Last Admin Trade Name Freq PRN Reason Stop Dose Admin Aspirin 324 mg 12/31/18 23:53 01/01/19 00:04 Aspirin PO 12/31/18 23:54 324 mg ONETIME ONE Administration - Re-Assessments/Exams Free Text/Narrative Re-Assessment/Exam: 68-year-old with complex medical history including CKD, coronary artery disease status post CAB and stent, presents after a period of LOC. Recurrent episode in the ED before she was placed on telemetry. She was not postictal afterwards, this does not appear to be seizure. History is consistent with syncopal episodes. She has a history of advanced coronary artery disease. She also has severe diastolic CHF. Concerning that perhaps there is a arrhythmia driving her presentation. Labs notable for worsening anemia with hemoglobin of 7, perhaps this is unmasking some cardiac instability in the setting of her CAD. No obvious source of acute hemorrhage. She is a worsening anemia with a past several years presumable due to CKD Elevated troponin at 0.66 in the setting of her CKD. Regarding the possibility of ACS, she does have new lateral T-wave changes on EKG, and a history of very atypical presentations for acute coronary syndrome. At this point believe this is more likely demand ischemia and trop elevation from kidney disease so deferring heparinization for now. Full dose ASA given. Her SBPs have been 90s-low 100s. Will transfuse 1 unit of pRBCs for volume and re-assess. Sepsis seems unlikely. Discussed with hospitalist in [place] after significant delay with locating accepting physician. We are transferring to higher level of care given her risk for decompensation and possible need for cardiac intervention. Remained stable on telemetry during ED stay and appropriate for transfer. 01/01/19 03:04 Departure - Departure Time of Disposition: 03:13 Disposition: DC/Tfer to [facility] 02 Clinical Impression: Elevated troponin Syncope Qualifiers: Syncope type: unspecified Qualified Code(s): R55 - Syncope and collapse Anemia Qualifiers: Anemia type: unspecified type Qualified Code(s): D64.9 - Anemia, unspecified - Discharge Information Referrals: PCP,None [Primary Care Provider] - Forms: ED Department Discharge - My Orders Last 24 Hours: My Active Orders 12/31/18 22:46 EKG 12 Lead [EK] Routine 12/31/18 22:47 EKG Documentation Completion [RC] ASDIRECTED 12/31/18 23:13 PATIENT RETYPE [BBK] Stat TYPE AND SCREEN [BBK] Stat 12/31/18 23:28 Transfuse Red Blood Cells [COMM] Urgent 01/01/19 01:36 CXR [Chest 1V Frontal] [CR] Stat 01/01/19 01:58 RED BLOOD CELLS LP [BBK] Stat - Assessment/Plan Last 24 Hours: My Active Orders 12/31/18 22:46 EKG 12 Lead [EK] Routine 12/31/18 22:47 EKG Documentation Completion [RC] ASDIRECTED 12/31/18 23:13 PATIENT RETYPE [BBK] Stat TYPE AND SCREEN [BBK] Stat 12/31/18 23:28 Transfuse Red Blood Cells [COMM] Urgent 01/01/19 01:36 CXR [Chest 1V Frontal] [CR] Stat 01/01/19 01:58 RED BLOOD CELLS LP [BBK] Stat
[2018-12-31] MEDS ORDERED: Aspirin 81 MG Tab.Chew PO ONE (23:53)
--- NOTE | 2019-01-01 02:24 | CRLCR ---
INDICATION: Syncope TECHNIQUE: Chest 1 view. COMPARISON: 01/13/2015 FINDINGS: Cardiovascular and mediastinum: Heart size upper limits of normal. Sternotomy wires noted.. Mediastinum is within normal limits. Lungs and pleural space: Lungs are clear. No sign of infiltrate or mass. No sign of pleural effusion. No pneumothorax. Bones and soft tissues: No significant findings. IMPRESSION: No acute pulmonary or cardiac abnormalities. Dictated by Roosevelt Doyle MD @ 01/01/2019 3:23:05 AM Dictated by: Roosevelt Doyle MD @ 01/01/2019 03:23:12 (Electronically Signed)
[2019-01-01 02:27] VITALS: BP 103/46
== END 2019-01-01 03:15 ==
LOC: JP.ED 22:34
DX: R55 Syncope and collapse (principal); R79.89 Other specified abnormal findings of blood chemistry; I25.2 Old myocardial infarction; I25.10 Atherosclerotic heart disease of native coronary artery without angina pectoris; I12.0 Hypertensive chronic kidney disease with stage 5 chronic kidney disease or end stage renal disease; N18.6 End stage renal disease; E10.22 Type 1 diabetes mellitus with diabetic chronic kidney disease; D64.9 Anemia, unspecified; Z88.8 Allergy status to other drugs, medicaments and biological substances; Z88.2 Allergy status to sulfonamides; Z79.82 Long term (current) use of aspirin; Z79.899 Other long term (current) drug therapy; Z95.1 Presence of aortocoronary bypass graft; R11.2 Nausea with vomiting, unspecified; E78.00 Pure hypercholesterolemia, unspecified; I10 Essential (primary) hypertension; F41.9 Anxiety disorder, unspecified; F32.9 Major depressive disorder, single episode, unspecified; E10.9 Type 1 diabetes mellitus without complications; E05.90 Thyrotoxicosis, unspecified without thyrotoxic crisis or storm; Z79.4 Long term (current) use of insulin
CPT/HCPCS: 36415; 36430; 71045; 80048; 80053; 82962; 84484; 85025; 85027; 85610; 86850; 86900; 86901; 86920; 86922; 93005; 96361; 96374; 99283; 99285; A9270; J2405; J7120; P9016; 99284

== ENCOUNTER 2019-12-30 10:18 | Emergency (ER) | payer MEDICARE ==
[2019-12-30 10:33] VITALS: BP 126/44; PULSE 75
[2019-12-30] MEDS ORDERED: Ondansetron 4 MG Tab.DIS PO ONE ×2 (10:47→11:38)
--- NOTE | 2019-12-30 10:55 | EDM.PDOC ---
ED HPI GENERAL MEDICAL PROBLEM - General Chief Complaint: General Stated Complaint: BREATHING NOT FEELING WELL Time Seen by Provider: 12/30/19 10:40 Source of Information: Reports: Patient, Old Records, RN History Limitations: Reports: No Limitations - History of Present Illness INITIAL COMMENTS - FREE TEXT/NARRATIVE: 69 yo female here with nausea and vomiting. Sx's started about 0430h today. No hematemesis. No diarrhea, chest pain, fever, or abdominal pain. No urinary sx' s. Had some respiratory sx's most of the week with a possible low grade fever at times. Onset: Today, Sudden Onset Date: 12/30/19 Onset Time: 04:30 Duration: Hour(s):, Waxing/Waning Location: Reports: Abdomen Quality: Reports: Other (no pain) Severity: Moderate Improves with: Reports: None Worsens with: Reports: None Context: Reports: Other (unknown, no known exposures) Associated Symptoms: Reports: Nausea/Vomiting. Denies: Chest Pain, Fever/Chills , Headaches Treatments AS400 CONSULTANT: Reports: Other (see below) (none) - Related Data Allergies Allergy/AdvReac Type Severity Reaction Status Date / Time gabapentin Allergy Edema Verified 12/31/18 23:58 Sulfa (Sulfonamide Allergy Rash Verified 12/31/18 22:57 Antibiotics) Home Meds: Home Meds Aspirin [Niko Chewable Aspirin] 81 mg PO DAILY 11/21/13 [History] Insulin Aspart [NovoLOG] 8 units SUBCUT TID 11/21/13 [History] amLODIPine [Norvasc] 10 mg PO DAILY 11/21/13 [History] Furosemide 40 mg PO DAILY 12/10/13 [History] Nitroglycerin [Nitrostat] 0.4 mg SL ASDIRECTED PRN 01/15/14 [History] atorvaSTATin [Lipitor] 80 mg PO BEDTIME 01/15/14 [History] Insulin Degludec [Tresiba Flextouch U-100] 25 unit SQ ASDIRECTED 12/31/18 [ History] Levothyroxine 175 mcg PO ACBRK 12/31/18 [History] Mirtazapine 7.5 mg PO BEDTIME 12/31/18 [History] Sildenafil Citrate [Sildenafil] 20 mg PO TID 12/31/18 [History] Insulin Aspart [NovoLOG] 8 units SUBCNJ TID 12/30/19 [History] Insulin Degludec [Tresiba Flextouch U-100] 21 units SUBCUT DAILY 12/30/19 [ History] Ondansetron [Zofran ODT] 4 mg PO Q6H PRN #10 tab.dis 12/30/19 [Rx] calcitrioL [Calcitriol] 0.25 mg PO DAILY 12/30/19 [History] carvediloL [Carvedilol] 3.125 mg PO BID 12/30/19 [History] metOLazone [Metolazone] 2.5 mg PO Q48H 12/30/19 [History] Past Medical History HEENT History: Reports: Epistaxis, Impaired Vision Cardiovascular History: Reports: CAD, High Cholesterol, Hypertension, [place], SOB on Exertion, Stents Respiratory History: Reports: Pneumonia, Recurrent Genitourinary History: Reports: Other (See Below) Other Genitourinary History: nephrectomy, POST GRADUATE INTERN History: Reports: Musculoskeletal History: Reports: Osteoporosis Psychiatric History: Reports: Anxiety, Depression Endocrine/Metabolic History: Reports: Diabetes, Type I, Hyperthyroidism Hematologic History: Reports: Anemia, B12 Deficiency, Blood Transfusion(s) - Infectious Disease History Infectious Disease History: Reports: Chicken Pox - Past Surgical History Cardiovascular Surgical History: Reports: Coronary Artery Bypass, Coronary Artery Stent GI Surgical History: Reports: Appendectomy, Colonoscopy Female Surgical History: Reports: Hysterectomy Social & Family History - Family History Cardiac: Reports: Heart Failure, [place] - Tobacco Use Smoking Status *Q: Never Smoker - Caffeine Use Caffeine Use: Reports: Soda - Recreational Drug Use Recreational Drug Use: No ED ROS GENERAL - Review of Systems Review Of Systems: See Below Constitutional: Reports: Malaise HEENT: Reports: No Symptoms Respiratory: Reports: No Symptoms Cardiovascular: Reports: No Symptoms GI/Abdominal: Reports: Nausea, Vomiting. Denies: Abdominal Pain, Black Stool, Bloody Stool, Constipation, Diarrhea, Difficulty Swallowing, Distension, Flatus , Hematemesis, Hematochezia, Melena : Reports: No Symptoms Musculoskeletal: Reports: No Symptoms Skin: Reports: No Symptoms Neurological: Reports: No Symptoms Psychiatric: Reports: No Symptoms ED EXAM, GENERAL - Physical Exam Exam: See Below Exam Limited By: No Limitations General Appearance: Alert, WD/WN, No Apparent Distress Eye Exam: Bilateral Eye: Normal Inspection Ears: Normal External Exam, Normal Canal, Hearing Grossly Normal, Normal TMs Ear Exam: Bilateral Ear: Auricle Normal, Canal Normal, TM normal Nose: Normal Inspection, No Blood Throat/Mouth: Normal Inspection, Normal Lips, Normal Oropharynx, Normal Voice, No Airway Compromise Head: Atraumatic, Normocephalic Neck: Normal Inspection Respiratory/Chest: No Respiratory Distress, Lungs Clear, Normal Breath Sounds, No Accessory Muscle Use Cardiovascular: Regular Rate, Rhythm, No Edema GI/Abdominal: Normal Bowel Sounds, Soft, Non-Tender, No Distention Back Exam: Normal Inspection. No: CVA Tenderness (R), CVA Tenderness (L) Extremities: Normal Inspection, Normal Range of Motion, Non-Tender, No Pedal Edema Neurological: Alert, Oriented, CN II-XII Intact, Normal Cognition, No Motor/ Sensory Deficits Psychiatric: Normal Affect, Normal Mood Skin Exam: Warm, Dry, Intact, Normal Color, No Rash EKG INTERPRETATION EKG Date: 12/30/19 Time: 11:25 Rhythm: NSR Rate (Beats/Min): 66 [place]: Normal P-Wave: Present QRS: Normal ST-T: Normal QT: Normal Comparison: Change From Previous EKG (PVC's now present.) Course - Vital Signs Last Recorded V/S: Last Vital Signs Temp 36.1 C 12/30/19 10:36 Pulse 75 12/30/19 10:36 Resp 18 12/30/19 10:36 BP 126/44 L 12/30/19 10:36 Pulse Ox 95 12/30/19 10:36 Orthostatic Blood Pressure [ 136/43 Standing] Orthostatic Blood Pressure [ 131/46 Sitting] Orthostatic Blood Pressure [ 115/43 Supine] - Orders/Labs/Meds Orders: Active Orders 24 hr Category Date Time Status EKG Documentation Completion [RC] ASDIRECTED Care 12/30/19 11:24 Active Orthostatic Vital Signs [RC] ASDIRECTED Care 12/30/19 11:33 Active EKG 12 Lead [EK] Routine Ther 12/30/19 11:23 Ordered Labs: Laboratory Tests 12/30/19 12/30/19 Range/Units 10:54 10:54 WBC 8.4 (4.5-11.0) K/uL RBC 2.75 L (3.30-5.50) M/uL Hgb 7.6 L (12.0-15.0) g/dL Hct 24.4 L (36.0-48.0) % MCV 89 (80-98) fL MCH 28 (27-31) pg MCHC 31 L (32-36) % Plt Count 246 (150-400) K/uL Sodium 131 L (140-148) mmol/L Potassium 3.4 L (3.6-5.2) mmol/L Chloride 93 L (100-108) mmol/L Carbon Dioxide 29 (21-32) mmol/L Anion Gap 12.4 (5.0-14.0) mmol/L BUN 81 H* (7-18) mg/dL Creatinine 2.5 H (0.6-1.0) mg/dL Est Cr Clr Drug Dosing 15.47 mL/min Estimated GFR (MDRD) 19 L (>60) Glucose 316 H (74-106) mg/dL Calcium 9.2 (8.5-10.1) mg/dL Troponin I 0.071 H* (0.000-0.056) ng/mL Meds: Medications Discontinued Medications Generic Name Dose Route Start Last Admin Trade Name Freq PRN Reason Stop Dose Admin Ondansetron HCl 4 mg 12/30/19 10:47 12/30/19 10:57 Zofran Odt PO 12/30/19 10:48 4 mg ONETIME ONE Administration Ondansetron HCl 4 mg 12/30/19 11:38 12/30/19 11:44 Zofran Odt PO 12/30/19 11:39 4 mg ONETIME ONE Administration Departure - Departure Time of Disposition: 12:57 Disposition: Home, Self-Care 01 Condition: Good Clinical Impression: Nausea and vomiting Qualifiers: Vomiting type: unspecified Vomiting Intractability: non-intractable Qualified Code(s): R11.2 - Nausea with vomiting, unspecified - Discharge Information *PRESCRIPTION DRUG MONITORING PROGRAM REVIEWED*: Not Applicable *COPY OF PRESCRIPTION DRUG MONITORING REPORT IN PATIENT ABHISHEK: Not Applicable Prescriptions: Ondansetron [Zofran ODT] 4 mg PO Q6H PRN #10 tab.dis PRN Reason: Nausea Instructions: Nausea and Vomiting, Adult, [id number] Referrals: Kei Kilgore, OPERATIONS CLERK [Primary Care Provider] - Forms: ED Department Discharge Additional Instructions: Take Zofran 4 mg every 6 hrs or up to 8 mg every 8 hrs as needed for nausea control. Sips of clear liquids to maintain hydration. Rest. Advance diet as tolerated. Recheck if worse. Sepsis Event Note - Evaluation Sepsis Screening Result: No Definite Risk - Focused Exam Vital Signs: Vital Signs Temp Pulse Resp BP Pulse Ox 12/30/19 10:36 36.1 C 75 18 126/44 L 95 12/30/19 10:32 36.1 C 75 18 126/44 L 95 Date Exam was Performed: 12/30/19 Time Exam was Performed: 12:56 - My Orders Last 24 Hours: My Active Orders 12/30/19 11:23 EKG 12 Lead [EK] Routine 12/30/19 11:24 EKG Documentation Completion [RC] ASDIRECTED 12/30/19 11:33 Orthostatic Vital Signs [RC] ASDIRECTED - Assessment/Plan Last 24 Hours: My Active Orders 12/30/19 11:23 EKG 12 Lead [EK] Routine 12/30/19 11:24 EKG Documentation Completion [RC] ASDIRECTED 12/30/19 11:33 Orthostatic Vital Signs [RC] ASDIRECTED
== END 2019-12-30 13:05 | disposition home or self-care (01) ==
LOC: JP.ED 10:18
DX: R11.2 Nausea with vomiting, unspecified (principal); I25.10 Atherosclerotic heart disease of native coronary artery without angina pectoris; E78.00 Pure hypercholesterolemia, unspecified; I10 Essential (primary) hypertension; I25.2 Old myocardial infarction; F41.9 Anxiety disorder, unspecified; F32.9 Major depressive disorder, single episode, unspecified; E10.9 Type 1 diabetes mellitus without complications; E05.90 Thyrotoxicosis, unspecified without thyrotoxic crisis or storm; Z88.8 Allergy status to other drugs, medicaments and biological substances; Z88.2 Allergy status to sulfonamides; Z79.82 Long term (current) use of aspirin; Z79.899 Other long term (current) drug therapy
CPT/HCPCS: 36415; 80048; 84484; 85027; 93005; 99284; A9270

== ENCOUNTER 2020-01-16 10:26 | Inpatient (IN) | payer MEDICARE, OTHER ==
[2020-01-16] MEDS ORDERED: Acetaminophen 325 MG Tab PO PRN (12:12)
[2020-01-16] MEDS ORDERED: Promethazine 6.25 MG in Sodium Chloride 0.9% 50 ML IV PRN (12:12)
[2020-01-16] MEDS ORDERED: Ondansetron 4 MG Tab.DIS PO PRN (12:12)
[2020-01-16] MEDS ORDERED: Albuterol 0.083% 2.5 MG/3 ML Neb Soln NEB PRN (12:12)
[2020-01-16] MEDS ORDERED: Sodium Chloride 0.9% 10 ML Syringe FLUSH PRN (12:12)
[2020-01-16] MEDS ORDERED: LORazepam 2 MG/ML SDV IVPUSH PRN (12:12)
--- NOTE | 2020-01-16 12:21 | PCM.HP.2 ---
H&P History of Present Illness - General Date of Service: 01/16/20 Admit Problem/Dx: Admission Diagnosis/Problem Admission Diagnosis/Problem Acute kidney injury Source of Information: Patient, Family, Provider History Limitations: Reports: No Limitations - History of Present Illness Initial Comments - Free Text/Narative: CC: I feel like crap HPI: Marisol presents as a direct admission from the clinic after she presented with weakness and fatigue. She reports that she has been going downhill over the past month but more rapidly over the past 2 weeks. She is very weak and fatigued. She is not sleeping well because of legs that do not want to stop moving as she describes them. She was so weak that she could not get out of her chair today. She feels short of breath with activity. She has not had any chest pain or abdominal pain. She does report a fair amount of nausea. Oral intake has been slowly decreasing over the past couple of weeks and has been negligible the last couple of days. She is not aware of any fevers or chills. She does not have any night sweats. Her weight has been stable. She does have chronic lower extremity edema which is relatively stable or may be even slightly better. She has not noticed any blood in her stool or melena. No hematemesis. She does not have any urinary symptoms to suggest infection. Today in the clinic she was noted to have a GFR with a baseline in the low 20s as well as a hemoglobin of 5.9 with a level just over 10 a couple of months ago. Sodium level is decreased at 126. She was sent to the hospital for management of anemia and acute kidney injury with hyponatremia. generalized Pain Score (Numeric/FACES): 9 - Related Data Allergies/Adverse Reactions: Allergies Allergy/AdvReac Type Severity Reaction Status Date / Time gabapentin Allergy Edema Verified 12/31/18 23:58 Sulfa (Sulfonamide Allergy Rash Verified 12/31/18 22:57 Antibiotics) Home Medications: Home Meds Aspirin [Niko Chewable Aspirin] 81 mg PO DAILY 11/21/13 [History] amLODIPine [Norvasc] 10 mg PO DAILY 11/21/13 [History] Furosemide 40 mg PO BID 12/10/13 [History] Nitroglycerin [Nitrostat] 0.4 mg SL ASDIRECTED PRN 01/15/14 [History] atorvaSTATin [Lipitor] 80 mg PO BEDTIME 01/15/14 [History] Levothyroxine 175 mcg PO ACBRK 12/31/18 [History] Mirtazapine 7.5 mg PO BEDTIME 12/31/18 [History] Sildenafil Citrate [Sildenafil] 20 mg PO TID 12/31/18 [History] Insulin Aspart [NovoLOG] 8 units SUBCNJ ACLUNCH 12/30/19 [History] Insulin Degludec [Tresiba Flextouch U-100] 22 units SUBCUT DAILY 12/30/19 [ History] calcitrioL [Calcitriol] 0.25 mg PO DAILY 12/30/19 [History] carvediloL [Carvedilol] 3.125 mg PO BID 12/30/19 [History] metOLazone [Metolazone] 2.5 mg PO Q48H 12/30/19 [History] Past Medical History HEENT History: Reports: Epistaxis, Impaired Vision Cardiovascular History: Reports: CAD, High Cholesterol, Hypertension, [place], SOB on Exertion, Stents Respiratory History: Reports: Pneumonia, Recurrent Genitourinary History: Reports: Other (See Below) Other Genitourinary History: nephrectomy, [employer] CLAIM AD[employer] History: Reports: Musculoskeletal History: Reports: Osteoporosis Psychiatric History: Reports: Anxiety, Depression Endocrine/Metabolic History: Reports: Diabetes, Type I, Hyperthyroidism Hematologic History: Reports: Anemia, B12 Deficiency, Blood Transfusion(s) - Infectious Disease History Infectious Disease History: Reports: Chicken Pox - Past Surgical History Cardiovascular Surgical History: Reports: Coronary Artery Bypass, Coronary Artery Stent GI Surgical History: Reports: Appendectomy, Colonoscopy Female Surgical History: Reports: Hysterectomy Social & Family History - Family History Cardiac: Reports: Heart Failure, [place] - Tobacco Use Smoking Status *Q: Never Smoker Second Hand Smoke Exposure: No - Caffeine Use Caffeine Use: Reports: None - Alcohol Use Alcohol Use History: No - Recreational Drug Use Recreational Drug Use: No H&P Review of Systems - Review of Systems: Review Of Systems: See Below Free Text/Narrative: A complete 12 point review of systems was obtained. Pertinent positives and negatives are noted in the history of present illness. All other systems were reviewed and were negative except as noted. Exam - Exam Exam: See Below - Vital Signs Vital Signs: Last Vital Signs Temp 35.5 C L 01/16/20 10:39 Pulse 60 01/16/20 10:39 Resp 18 01/16/20 10:39 BP 111/36 L 01/16/20 10:39 Pulse Ox 95 01/16/20 10:39 Weight: 71.214 kg - Exam Quality Assessment: No: Supplemental Oxygen General: Alert, Oriented, Cooperative. No: Mild Distress HEENT: Conjunctiva Clear. No: Mucosa Moist & Carter (dry), Scleral Icterus Neck: Supple, Trachea Midline. No: Lymphadenopathy, JVD Lungs: Clear to Auscultation, Normal Respiratory Effort Cardiovascular: Regular Rate, Regular Rhythm, Systolic Murmur GI/Abdominal Exam: Normal Bowel Sounds, Soft, Non-Tender, No Distention, No Mass Back Exam: Normal Inspection, Full Range of Motion Extremities: Pedal Edema (Pitting edema to the knee bilaterally). No: Increased Warmth Peripheral Pulses: 2+: Dorsalis Pedis (L), Dorsalis Pedis (R) Skin: Warm, Dry. No: Rash, Ecchymosis Neuro Extensive - Mental Status: Alert, Oriented x3, Nl Response to Commands Neuro Extensive - Motor, Sensory, Reflexes: No: Dysarthria, Abnormal Motor, Tremor Psychiatric: Alert, Normal Affect - Patient Data Lab Results Last 24 hrs: Sodium 126 potassium 4.4 creatinine 3.2 (baseline of around 1.8-2) Hemoglobin 5.9 Sepsis Event Note - Evaluation Sepsis Screening Result: No Definite Risk - Focused Exam Vital Signs: Vital Signs Temp Pulse Resp BP Pulse Ox 01/16/20 10:39 35.5 C L 60 18 111/36 L 95 Date Exam was Performed: 01/16/20 Time Exam was Performed: 14:38 *Q Meaningful Use (ADM) - VTE Risk Assess *Q Each Risk Factor Represents 1 Point: Swollen Legs, Current, Obesity ( BMI > 25 kg/m2), Congestive heart failure (CHF) Total Score 1 Point Risk Factors: 3 Each Risk Factor Represents 2 Points: Age 60 - 74 Years Total Score 2 Point Risk Factors: 2 Each Risk Factor Represents 3 Points: None Total Score 3 Point Risk Factors: 0 Each Risk Factor Represents 5 Points: None Total Score 5 Point Risk Factors: 0 Venous Thromboembolism Risk Factor Score *Q: 5 - Problem List (1) Acute kidney injury SNOMED Code(s): 58519464, 94642443 ICD Code: N17.9 - ACUTE KIDNEY FAILURE, UNSPECIFIED Status: Acute Current Visit: Yes (2) Hyponatremia SNOMED Code(s): 26818187 ICD Code: E87.1 - HYPO-OSMOLALITY AND HYPONATREMIA Status: Acute Current Visit: Yes (3) Anemia, iron deficiency SNOMED Code(s): 27595120 ICD Code: D50.9 - IRON DEFICIENCY ANEMIA, UNSPECIFIED Status: Acute Current Visit: Yes Qualifiers: Iron deficiency anemia type: unspecified iron deficiency Qualified Code(s) : D50.9 - Iron deficiency anemia, unspecified (4) Insulin dependent diabetes mellitus SNOMED Code(s): 26702910 ICD Code: [id number] - Status: Chronic Current Visit: Yes (5) Congestive heart failure SNOMED Code(s): 17711809 ICD Code: I50.9 - HEART FAILURE, UNSPECIFIED Status: Chronic Current Visit: No Qualifiers: Qualified Code(s): I50.42 - Chronic combined systolic (congestive) and diastolic (congestive) heart failure (6) Acquired hypothyroidism SNOMED Code(s): 356670889 ICD Code: E03.9 - HYPOTHYROIDISM, UNSPECIFIED Status: Acute Current Visit : Yes Problem List Initiated/Reviewed/Updated: Yes Orders Last 24hrs: Active Orders 24 hr Category Date Time Status Patient Status [ADT] Routine ADT 01/16/20 12:12 Ordered Antiembolic Devices [RC] .Routine Care 01/16/20 12:12 Ordered Cardiac Monitoring [RC] CONTINUOUS Care 01/16/20 12:13 Ordered Communication Order [RC] PRN Care 01/16/20 12:12 Ordered Communication Order [RC] PRN Care 01/16/20 12:12 Ordered Diabetes Education [RC] Click to Edit Care 01/16/20 12:12 Ordered Intake and Output [RC] QSHIFT Care 01/16/20 12:12 Ordered Notify Provider Vital Signs [RC] ASDIRECTED Care 01/16/20 12:12 Ordered Notify Provider [RC] PRN Care 01/16/20 12:16 Ordered Oxygen Therapy [RC] PRN Care 01/16/20 12:12 Ordered RT Aerosol Therapy [RC] ASDIRECTED Care 01/16/20 12:15 Ordered Up With Assistance [RC] ASDIRECTED Care 01/16/20 12:12 Ordered VTE/DVT Education [RC] Per Unit Routine Care 01/16/20 12:12 Ordered Vital Signs [RC] Q4H Care 01/16/20 12:12 Ordered 2 Gram Sodium Diet [DIET] Diet 01/16/20 Dinner Ordered BASIC METABOLIC PANEL,BMP [CHEM] AM Lab 01/17/20 05:11 Ordered C-REACTIVE PROTEIN [CHEM] Routine Lab 01/16/20 12:12 Ordered CBC W/O DIFF,HEMOGRAM [HEME] AM Lab 01/17/20 05:11 Ordered FERRITIN [CHEM] Routine Lab 01/16/20 12:17 Ordered GLUCOSE POC LAB TO COLLECT [POC] QIDACANDBED Lab 01/16/20 16:30 Ordered GLUCOSE POC LAB TO COLLECT [POC] QIDACANDBED Lab 01/16/20 21:00 Ordered GLUCOSE POC LAB TO COLLECT [POC] QIDACANDBED Lab 01/17/20 07:30 Ordered GLUCOSE POC LAB TO COLLECT [POC] QIDACANDBED Lab 01/17/20 11:30 Ordered GLUCOSE POC LAB TO COLLECT [POC] QIDACANDBED Lab 01/17/20 16:30 Ordered GLUCOSE POC LAB TO COLLECT [POC] QIDACANDBED Lab 01/17/20 21:00 Ordered GLUCOSE POC LAB TO COLLECT [POC] QIDACANDBED Lab 01/18/20 07:30 Ordered GLUCOSE POC LAB TO COLLECT [POC] QIDACANDBED Lab 01/18/20 11:30 Ordered GLUCOSE POC LAB TO COLLECT [POC] QIDACANDBED Lab 01/18/20 16:30 Ordered GLUCOSE POC LAB TO COLLECT [POC] QIDACANDBED Lab 01/18/20 21:00 Ordered GLUCOSE POC LAB TO COLLECT [POC] QIDACANDBED Lab 01/19/20 07:30 Ordered GLUCOSE POC LAB TO COLLECT [POC] QIDACANDBED Lab 01/19/20 11:30 Ordered GLUCOSE POC LAB TO COLLECT [POC] QIDACANDBED Lab 01/19/20 16:30 Ordered GLUCOSE POC LAB TO COLLECT [POC] QIDACANDBED Lab 01/19/20 21:00 Ordered GLUCOSE POC LAB TO COLLECT [POC] QIDACANDBED Lab 01/20/20 07:30 Ordered GLUCOSE POC LAB TO COLLECT [POC] QIDACANDBED Lab 01/20/20 11:30 Ordered GLUCOSE POC LAB TO COLLECT [POC] QIDACANDBED Lab 01/20/20 16:30 Ordered GLUCOSE POC LAB TO COLLECT [POC] QIDACANDBED Lab 01/20/20 21:00 Ordered GLUCOSE POC LAB TO COLLECT [POC] QIDACANDBED Lab 01/21/20 07:30 Ordered GLUCOSE POC LAB TO COLLECT [POC] QIDACANDBED Lab 01/21/20 11:30 Ordered GLUCOSE POC LAB TO COLLECT [POC] QIDACANDBED Lab 01/21/20 16:30 Ordered GLUCOSE POC LAB TO COLLECT [POC] QIDACANDBED Lab 01/21/20 21:00 Ordered IRON/TIBC [CHEM] Routine Lab 01/16/20 12:17 Ordered MAGNESIUM [CHEM] Routine Lab 01/16/20 12:12 Ordered RED BLOOD CELLS LP [BBK] Routine Lab 01/16/20 12:17 Ordered TSH ULTRASENSITIVE [CHEM] Routine Lab 01/16/20 12:18 Ordered UA W/MICROSCOPIC [URIN] Routine Lab 01/16/20 12:12 Ordered Acetaminophen [Tylenol] Med 01/16/20 12:12 Ordered 650 mg PO Q4H PRN Albuterol [Proventil Neb Soln] Med 01/16/20 12:12 Ordered 2.5 mg NEB Q4H PRN Aspirin Med 01/17/20 09:00 Ordered 81 mg PO DAILY Docusate Sodium/Sennosides [Senna Plus] Med 01/16/20 12:12 Ordered 1 tab PO BID PRN Insulin Glarg,Human.Rec.Analog [LantUS Solostar] Med 01/17/20 09:00 Ordered 22 units SUBCUT DAILY Insulin Lispro [HumaLOG] Med 01/16/20 17:00 Ordered See Protocol SUBCUT QIDACANDBED LORazepam [Ativan] Med 01/16/20 12:12 Ordered 0.5 mg IVPUSH Q4H PRN Levothyroxine [Levothyroxine] Med 01/17/20 07:30 Ordered 175 mcg PO ACBRK Magnesium Hydroxide [Milk of Magnesia] Med 01/16/20 12:12 Ordered 30 ml PO Q12H PRN Melatonin Med 01/16/20 21:00 Ordered 9 mg PO BEDTIME Mirtazapine [Mirtazapine] Med 01/16/20 21:00 Ordered 7.5 mg PO BEDTIME Ondansetron [Zofran ODT] Med 01/16/20 12:12 Ordered 4 mg PO Q6H PRN Prochlorperazine [Compazine] Med 01/16/20 12:19 Ordered 10 mg PO Q6H PRN Promethazine [Phenergan] 6.25 mg Med 01/16/20 12:12 Ordered Sodium Chloride 0.9% [Normal Saline] 50 ml IV Q6H Sildenafil Citrate [Sildenafil Citrate] Med 01/16/20 14:00 Ordered 20 mg PO TID Sodium Chloride 0.9% [Normal Saline] 1,000 ml Med 01/16/20 12:15 Ordered IV ASDIRECTED Sodium Chloride 0.9% [Saline Flush] Med 01/16/20 12:12 Ordered 10 ml FLUSH ASDIRECTED PRN atorvaSTATin [Lipitor] Med 01/16/20 21:00 Ordered 80 mg PO BEDTIME calcitrioL [Calcitriol] Med 01/17/20 09:00 Ordered 0.25 mg PO DAILY carvediloL [Coreg] Med 01/16/20 21:00 Ordered 3.125 mg PO BID oxyCODONE Med 01/16/20 12:12 Ordered 5 mg PO Q4H PRN Antiembolic Hose [OM.PC] Routine Oth 01/16/20 12:13 Ordered Saline Lock Insert [OM.PC] Urgent Oth 01/16/20 12:12 Ordered Transfuse Red Blood Cells [COMM] Routine Oth 01/16/20 12:17 Ordered Resuscitation Status Routine Resus Stat 01/16/20 12:12 Ordered Assessment/Plan Comment:: ASSESSMENT AND PLAN - Acute anemia due to iron deficiency-no obvious source of blood loss and I suspect this is related to her chronic renal disease with contribution from iron deficiency. Symptoms include fatigue and weakness as well as likely the restless legs. Iron levels and ferritin are quite low. Hemoglobin quite low at only 5.9. I would anticipate her weakness and fatigue should improve with blood transfusion. -Plan to transfuse 2 units of red blood cells slowly today -Plan for iron supplementation after the hospital stay -Recheck hemoglobin in the morning Acute kidney injury-I think this is related to too many diuretics and intravascular volume depletion. At baseline she has a creatinine between 1.8 and 2 with a solitary kidney. -Hold diuretics -IV fluids -Labs in the morning Hyponatremia-likely hypovolemic with overdiuresis as discussed above. I would anticipate this will improve with IV fluids. -Fluids as above and labs in the morning Acquired hypothyroidism-TSH is elevated. Free T4 is pending. She will likely need a slight increase in her thyroid supplement dosing. -Increase levothyroxine dose tomorrow morning Insulin-dependent diabetes mellitus-sugars have been elevated up to 400 at home and run between 204 100. -Continue long-acting insulin -Sliding scale insulin Maintenance issues - - DVT prophylaxis -ADRIAN stockings - GI prophylaxis -not indicated - Nutrition -low-sodium diet - Muhammad catheter -not indicated CODE STATUS -DNR/DNI Admission justification -this patient will be admitted for inpatient services and is medically appropriate meeting medical necessity for inpatient admission as outlined in my documentation. I reasonably expect the patient will require inpatient services that span a period time over 2 midnights. I reasonably expect this patient to be discharged or transferred within 96 hours [facility]. Disposition -I would anticipate discharge home after the hospital stay, possibly with home care Primary care physician -Kei Douglas M.D. - Mortality Measure Prognosis:: Good
[2020-01-16] MEDS: oxyCODONE 5 MG Tab PO PRN (12:45)
[2020-01-16] MEDS: Sodium Chloride 0.9% 1,000 ML IV SCH ×2 (12:45→20:02)
[2020-01-16] MEDS: Prochlorperazine 10 MG Tab PO PRN (12:48)
[2020-01-16] MEDS: SILDENAFIL CITRATE 20 MG PO SCH ×2 (15:34→21:23)
[2020-01-16] MEDS: Insulin Lispro 100 Unit/ML 3 ML KwikPen SUBCUT SCH ×2 (16:55→21:26)
[2020-01-16] MEDS ORDERED: CARVEDILOL 3.125 MG PO SCH (21:00)
[2020-01-16] MEDS: Melatonin 3 MG Tab PO SCH (21:22)
[2020-01-16] MEDS: ATORVASTATIN 80 MG PO SCH (21:22)
[2020-01-16] MEDS: Mirtazapine 15 MG **PTOM PO SCH (21:23)
[2020-01-17] MEDS: Sodium Chloride 0.9% 1,000 ML IV SCH ×2 (06:03→19:12)
[2020-01-17] MEDS ORDERED: LEVOTHYROXINE 175 MCG PO SCH (07:30)
[2020-01-17] MEDS: Levothyroxine 100 MCG Tab PO SCH (07:53)
[2020-01-17] MEDS: Insulin Lispro 100 Unit/ML 3 ML KwikPen SUBCUT SCH ×4 (07:57→21:38)
[2020-01-17] MEDS: Aspirin 81 MG Tab.Chew PO SCH (08:55)
[2020-01-17] MEDS: CALCITRIOL 0.25 MG PO SCH (08:56)
[2020-01-17] MEDS: SILDENAFIL CITRATE 20 MG PO SCH ×3 (08:57→20:48)
[2020-01-17] MEDS: Insulin Glargine,Human Rec. Analog 100 Units/ML 3 ML Pen SUBCUT SCH (09:00)
--- NOTE | 2020-01-17 14:21 | PCM.PN ---
- General Info Date of Service: 01/17/20 Subjective Update: There were no acute events overnight. She tolerated her blood transfusion well. Hemoglobin improved but is only up to 7 this morning. No evidence for bleeding overnight. Her nausea has improved and she was able to eat a full breakfast. Lower extremity edema has improved. Energy is slightly better but still far below baseline. Creatinine level is marginally better at 3.1 today. BUN still significantly elevated. - Patient Data Vitals - Most Recent: Last Vital Signs Temp 35.2 C L 01/17/20 13:31 Pulse 48 L 01/17/20 13:31 Resp 20 01/17/20 13:31 BP 125/68 01/17/20 13:31 Pulse Ox 100 01/17/20 08:10 Weight - Most Recent: 71.214 kg I&O - Last 24 Hours: Intake & Output 01/16/20 01/17/20 01/17/20 22:59 06:59 14:59 Intake Total 751 1469 1747 Output Total 250 Balance 751 1469 1497 Lab Results Last 24 Hours: Laboratory Results - last 24 hr 01/16/20 01/16/20 01/16/20 Range/Units 12:12 12:42 14:38 WBC (4.5-11.0) K/uL RBC (3.30-5.50) M/uL Hgb (12.0-15.0) g/dL Hct (36.0-48.0) % MCV (80-98) fL MCH (27-31) pg MCHC (32-36) % Plt Count (150-400) K/uL Sodium (140-148) mmol/L Potassium (3.6-5.2) mmol/L Chloride (100-108) mmol/L Carbon Dioxide (21-32) mmol/L Anion Gap (5.0-14.0) mmol/L BUN (7-18) mg/dL Creatinine (0.6-1.0) mg/dL Est Cr Clr Drug Dosing mL/min Estimated GFR (MDRD) (>60) Glucose (74-106) mg/dL Calcium (8.5-10.1) mg/dL Free T4 1.65 H (0.76-1.46) ng/dL Urine Color [place] A (YELLOW) Urine Appearance Slightly cloudy A (CLEAR) Urine pH 6.0 (5.0-8.0) Ur Specific [place] 1.015 (1.008-1.030) Urine Protein 30 H (NEGATIVE) mg/dL Urine Glucose (UA) Negative (NEGATIVE) mg/dL Urine Ketones Negative (NEGATIVE) mg/dL Urine Occult Blood Negative (NEGATIVE) Urine Nitrite Negative (NEGATIVE) Urine Bilirubin Negative (NEGATIVE) Urine Urobilinogen 1.0 (0.2-1.0) EU/dL Ur Leukocyte Esterase Small H (NEGATIVE) Urine RBC 0-5 (0-5) Urine WBC 5-10 H (0-5) Ur Epithelial Cells Many Amorphous Sediment Many Urine Bacteria Not seen Urine Mucus Rare Blood Type O POSITIVE Gel Antibody Screen Negative Crossmatch See Detail 01/17/20 01/17/20 Range/Units 04:48 04:48 WBC 4.8 (4.5-11.0) K/uL RBC 2.68 L (3.30-5.50) M/uL Hgb 7.0 L (12.0-15.0) g/dL Hct 22.4 L (36.0-48.0) % MCV 84 (80-98) fL MCH 26 L (27-31) pg MCHC 31 L (32-36) % Plt Count 289 (150-400) K/uL Sodium 127 L (140-148) mmol/L Potassium 3.6 (3.6-5.2) mmol/L Chloride 90 L (100-108) mmol/L Carbon Dioxide 28 (21-32) mmol/L Anion Gap 12.6 (5.0-14.0) mmol/L BUN 92 H* (7-18) mg/dL Creatinine 3.1 H (0.6-1.0) mg/dL Est Cr Clr Drug Dosing 12.48 mL/min Estimated GFR (MDRD) 15 L (>60) Glucose 182 H (74-106) mg/dL Calcium 8.5 (8.5-10.1) mg/dL Free T4 (0.76-1.46) ng/dL Urine Color (YELLOW) Urine Appearance (CLEAR) Urine pH (5.0-8.0) Ur Specific [place] (1.008-1.030) Urine Protein (NEGATIVE) mg/dL Urine Glucose (UA) (NEGATIVE) mg/dL Urine Ketones (NEGATIVE) mg/dL Urine Occult Blood (NEGATIVE) Urine Nitrite (NEGATIVE) Urine Bilirubin (NEGATIVE) Urine Urobilinogen (0.2-1.0) EU/dL Ur Leukocyte Esterase (NEGATIVE) Urine RBC (0-5) Urine WBC (0-5) Ur Epithelial Cells Amorphous Sediment Urine Bacteria Urine Mucus Blood Type Gel Antibody Screen Crossmatch Med Orders - Current: Current Medications Acetaminophen (Tylenol) 650 mg PO Q4H PRN PRN Reason: Pain (Mild 1-3)/fever Albuterol (Proventil Neb Soln) 2.5 mg NEB Q4H PRN PRN Reason: Shortness Of Breath/wheezing Aspirin (Aspirin) 81 mg PO DAILY [facility] Last Admin: 01/17/20 08:55 Dose: 81 mg Promethazine HCl 6.25 mg/ (Sodium Chloride) 50.25 mls @ 200 mls/hr IV Q6H PRN PRN Reason: Nausea/Vomiting Sodium Chloride (Normal Saline) 1,000 mls @ 100 mls/hr IV ASDIRECTED [facility] Last Admin: 01/17/20 06:03 Dose: 100 mls/hr Insulin Glargine (Lantus Solostar) 22 units SUBCUT DAILY [facility] Last Admin: 01/17/20 09:00 Dose: 22 units Insulin Human Lispro (Humalog) 0 unit SUBCUT QIDACANDBED [facility]; Protocol Last Admin: 01/17/20 11:20 Dose: 8 units Levothyroxine Sodium (Synthroid) 200 mcg PO ACBREAKFAST [facility] Last Admin: 01/17/20 07:53 Dose: 200 mcg Lorazepam (Ativan) 0.5 mg IVPUSH Q4H PRN PRN Reason: Nausea/Vomiting Magnesium Hydroxide (Milk Of Magnesia) 30 ml PO Q12H PRN PRN Reason: Constipation Melatonin (Melatonin) 9 mg PO BEDTIME [facility] Last Admin: 01/16/20 21:22 Dose: Not Given Mirtazapine (Remeron) 7.5 mg PO BEDTIME [facility] Last Admin: 01/16/20 21:23 Dose: 7.5 mg Atorvastatin 80 Mg * (*Ptom) 0 mg PO BEDTIME [facility] Last Admin: 01/16/20 21:22 Dose: 80 mg Calcitriol 0.25 Mg * (*Ptom) 0 mg PO DAILY [facility] Last Admin: 01/17/20 08:56 Dose: 0.25 mg Sildenafil Citrate (20 Mg Ptom) 0 mg PO TID [facility] Last Admin: 01/17/20 13:42 Dose: 20 mg Ondansetron HCl (Zofran Odt) 4 mg PO Q6H PRN PRN Reason: Nausea able to take PO Oxycodone HCl (Oxycodone) 5 mg PO Q4H PRN PRN Reason: Pain (moderate 4-6) Last Admin: 01/16/20 12:45 Dose: 5 mg Prochlorperazine Maleate (Compazine) 10 mg PO Q6H PRN PRN Reason: Nausea/Vomiting Last Admin: 01/16/20 12:48 Dose: 10 mg Senna/Docusate Sodium (Senna Plus) 1 tab PO BID PRN PRN Reason: Constipation Sodium Chloride (Saline Flush) 10 ml FLUSH ASDIRECTED PRN PRN Reason: Keep Vein Open Discontinued Medications Carvedilol (Coreg) 3.125 mg PO BID [facility] Levothyroxine 175 (Mcg Ptom) 0 mcg PO ACBRK [facility] - Exam Quality Assessment: No: Supplemental Oxygen General: Alert, Oriented, Cooperative, No Acute Distress Lungs: Normal Respiratory Effort Cardiovascular: Regular Rate, Regular Rhythm GI/Abdominal Exam: Soft, No Distention Extremities: Pedal Edema (Trace bilateral lower extremity edema) Psy/Mental Status: Alert, Normal Affect Sepsis Event Note - Evaluation Sepsis Screening Result: No Definite Risk - Focused Exam Vital Signs: Vital Signs Temp Temp Pulse Resp BP Pulse Ox 01/17/20 13:31 35.2 C L 48 L 20 125/68 01/17/20 13:00 35.7 C L 42 L 126/59 L 01/17/20 12:31 35.3 C L 49 L 20 138/71 01/17/20 12:02 35.6 C L 44 L 22 H 117/48 L 01/17/20 11:31 35.5 C L 48 L 24 H 122/52 L 01/17/20 11:00 35.5 C L 46 L 24 H 121/53 L 01/17/20 10:45 35.5 C L 65 24 H 127/50 L 01/17/20 10:35 35.6 C L 55 L 24 H 124/48 L 01/17/20 10:20 35.5 C L 82 24 H 123/40 L 01/17/20 08:10 35.8 C L 43 L 16 127/43 L 100 01/17/20 06:00 36.1 C 54 L 16 110/95 H 95 01/17/20 02:46 36.5 C 48 L 18 131/59 L 96 Date Exam was Performed: 01/17/20 Time Exam was Performed: 14:17 - Problem List & Annotations (1) Acute kidney injury SNOMED Code(s): 73895457, 19772167 Code(s): N17.9 - ACUTE KIDNEY FAILURE, UNSPECIFIED Status: Acute Current Visit: Yes (2) Hyponatremia SNOMED Code(s): 89554516 Code(s): E87.1 - HYPO-OSMOLALITY AND HYPONATREMIA Status: Acute Current Visit: Yes (3) Anemia, iron deficiency SNOMED Code(s): 23945535 Code(s): D50.9 - IRON DEFICIENCY ANEMIA, UNSPECIFIED Status: Acute Current Visit: Yes Qualifiers: Iron deficiency anemia type: unspecified iron deficiency Qualified Code(s) : D50.9 - Iron deficiency anemia, unspecified (4) Insulin dependent diabetes mellitus SNOMED Code(s): 50687779 Code(s): NVI6036 - Status: Chronic Current Visit: Yes (5) Congestive heart failure SNOMED Code(s): 77069369 Code(s): I50.9 - HEART FAILURE, UNSPECIFIED Status: Chronic Current Visit : No Qualifiers: Qualified Code(s): I50.42 - Chronic combined systolic (congestive) and diastolic (congestive) heart failure (6) Acquired hypothyroidism SNOMED Code(s): 684342203 Code(s): E03.9 - HYPOTHYROIDISM, UNSPECIFIED Status: Acute Current Visit : Yes - Problem List Review Problem List Initiated/Reviewed/Updated: Yes - My Orders Last 24 Hours: My Active Orders 01/16/20 14:00 Sildenafil Citrate [Sildenafil Citrate] 0 mg PO TID 01/16/20 17:00 Glucose [Blood Glucose Check, Bedside] [RC] QIDACANDBED Insulin Lispro [HumaLOG] See Protocol SUBCUT QIDACANDBED 01/16/20 21:00 Melatonin 9 mg PO BEDTIME Mirtazapine [Remeron] 7.5 mg PO BEDTIME atorvaSTATin [Lipitor] 0 mg PO BEDTIME 01/16/20 Dinner 2 Gram Sodium Diet [DIET] 01/17/20 07:30 Levothyroxine [Synthroid] 200 mcg PO ACBREAKFAST 01/17/20 08:30 Transfuse Red Blood Cells [COMM] Routine 01/17/20 09:00 Aspirin 81 mg PO DAILY Insulin Glarg,Human.Rec.Analog [LantUS Solostar] 22 units SUBCUT DAILY calcitrioL [Calcitriol] 0 mg PO DAILY 01/17/20 16:30 GLUCOSE POC LAB TO COLLECT [POC] QIDACANDBED 01/17/20 21:00 GLUCOSE POC LAB TO COLLECT [POC] QIDACANDBED 01/18/20 07:30 GLUCOSE POC LAB TO COLLECT [POC] QIDACANDBED 01/18/20 11:30 GLUCOSE POC LAB TO COLLECT [POC] QIDACANDBED 01/18/20 16:30 GLUCOSE POC LAB TO COLLECT [POC] QIDACANDBED 01/18/20 21:00 GLUCOSE POC LAB TO COLLECT [POC] QIDACANDBED 01/19/20 07:30 GLUCOSE POC LAB TO COLLECT [POC] QIDACANDBED 01/19/20 11:30 GLUCOSE POC LAB TO COLLECT [POC] QIDACANDBED 01/19/20 16:30 GLUCOSE POC LAB TO COLLECT [POC] QIDACANDBED 01/19/20 21:00 GLUCOSE POC LAB TO COLLECT [POC] QIDACANDBED 01/20/20 07:30 GLUCOSE POC LAB TO COLLECT [POC] QIDACANDBED 01/20/20 11:30 GLUCOSE POC LAB TO COLLECT [POC] QIDACANDBED 01/20/20 16:30 GLUCOSE POC LAB TO COLLECT [POC] QIDACANDBED 01/20/20 21:00 GLUCOSE POC LAB TO COLLECT [POC] QIDACANDBED 01/21/20 07:30 GLUCOSE POC LAB TO COLLECT [POC] QIDACANDBED 01/21/20 11:30 GLUCOSE POC LAB TO COLLECT [POC] QIDACANDBED 01/21/20 16:30 GLUCOSE POC LAB TO COLLECT [POC] QIDACANDBED 01/21/20 21:00 GLUCOSE POC LAB TO COLLECT [POC] QIDACANDBED - Plan Plan:: ASSESSMENT AND PLAN - Acute anemia due to iron deficiency-probably multifactorial with poor kidney function and iron deficiency. Hemoglobin improved with transfusion but still quite low. Symptomatically little better today. Hopefully her hemoglobin levels will improve and remain stable if we can get her kidney function to turn around. -Plan to transfuse 1 unit of packed red blood cells today -Plan for iron supplementation after the hospital stay -Recheck hemoglobin in the morning Acute kidney injury-I think this is related to too many diuretics and intravascular volume depletion. Creatinine slightly better today but still significant elevation of BUN. If her levels do not improve over the next 24 hours she may need to consider initiating dialysis for uremia. -Hold diuretics -Continue gentle IV fluids -Labs in the morning Hyponatremia-likely hypovolemic with overdiuresis as discussed above. Level only marginally better than yesterday. -Fluids as above and labs in the morning Acquired hypothyroidism-TSH is elevated and free T4 at the upper limits of normal. -Continue levothyroxine Insulin-dependent diabetes mellitus-sugars have been fairly well controlled. -Continue long-acting insulin -Sliding scale insulin Maintenance issues - - DVT prophylaxis -ADRIAN stockings - GI prophylaxis -not indicated - Nutrition -low-sodium diet Disposition -I would anticipate discharge home after the hospital stay, possibly with home care Donovan Douglas M.D.
[2020-01-17] MEDS: Prochlorperazine 10 MG Tab PO PRN (18:35)
[2020-01-17] MEDS: Melatonin 3 MG Tab PO SCH (20:46)
[2020-01-17] MEDS: Mirtazapine 15 MG **PTOM PO SCH (20:47)
[2020-01-17] MEDS: ATORVASTATIN 80 MG PO SCH (20:47)
[2020-01-17] MEDS: oxyCODONE 5 MG Tab PO PRN (21:46)
[2020-01-17] MEDS ORDERED: Morphine 2 MG/ML Syringe IVPUSH PRN (22:24)
[2020-01-18] MEDS: Sodium Chloride 0.9% 1,000 ML IV SCH (04:04)
[2020-01-18] MEDS: Levothyroxine 100 MCG Tab PO SCH (07:29)
[2020-01-18] MEDS: Insulin Lispro 100 Unit/ML 3 ML KwikPen SUBCUT SCH ×4 (07:41→21:25)
[2020-01-18] MEDS: CALCITRIOL 0.25 MG PO SCH (09:01)
[2020-01-18] MEDS: Aspirin 81 MG Tab.Chew PO SCH (09:02)
[2020-01-18] MEDS: SILDENAFIL CITRATE 20 MG PO SCH ×3 (09:02→21:28)
[2020-01-18] MEDS: Magnesium Hydroxide 400 MG/5 ML Susp 30 ML Cup PO PRN (09:03)
[2020-01-18] MEDS: Insulin Glargine,Human Rec. Analog 100 Units/ML 3 ML Pen SUBCUT SCH (09:05)
[2020-01-18] MEDS ORDERED: Potassium Chloride 20 MEQ Tab.ER PO ONE (12:15)
--- NOTE | 2020-01-18 13:12 | PCM.PN ---
- General Info Date of Service: 01/18/20 Subjective Update: There were no acute events overnight. Hemoglobin level is better today with no hematochezia or melena noted. She feels a little better today but is still fatigued and somewhat short of breath. Kidney function is slightly better today and urine output has been marginal. Blood pressures have been in the normal range. She has not had any fevers. She did require oxygen overnight. Sodium remains low. Functional Status: Reports: Pain Controlled, Tolerating Diet - Review of Systems General: Reports: Weakness Pulmonary: Reports: Shortness of Breath - Patient Data Vitals - Most Recent: Last Vital Signs Temp 35.7 C L 01/18/20 10:59 Pulse 53 L 01/18/20 10:59 Resp 20 01/18/20 10:59 BP 112/51 L 01/18/20 10:59 Pulse Ox 96 01/18/20 10:59 Weight - Most Recent: 71.214 kg I&O - Last 24 Hours: Intake & Output 01/17/20 01/18/20 01/18/20 22:59 06:59 14:59 Intake Total 352 1725 360 Output Total 200 300 100 Balance 152 1425 260 Lab Results Last 24 Hours: Laboratory Results - last 24 hr 01/16/20 01/18/20 01/18/20 Range/Units 12:42 08:45 08:45 WBC 8.0 (4.5-11.0) K/uL RBC 3.33 (3.30-5.50) M/uL Hgb 9.0 L D (12.0-15.0) g/dL Hct 28.0 L (36.0-48.0) % MCV 84 (80-98) fL MCH 27 (27-31) pg MCHC 32 (32-36) % Plt Count 284 (150-400) K/uL Sodium 126 L (140-148) mmol/L Potassium 3.5 L (3.6-5.2) mmol/L Chloride 91 L (100-108) mmol/L Carbon Dioxide 27 (21-32) mmol/L Anion Gap 11.5 (5.0-14.0) mmol/L BUN 87 H* (7-18) mg/dL Creatinine 2.9 H (0.6-1.0) mg/dL Est Cr Clr Drug Dosing 13.34 mL/min Estimated GFR (MDRD) 16 L (>60) Glucose 139 H (74-106) mg/dL Calcium 8.7 (8.5-10.1) mg/dL Crossmatch See Detail Med Orders - Current: Current Medications Acetaminophen (Tylenol) 650 mg PO Q4H PRN PRN Reason: Pain (Mild 1-3)/fever Albuterol (Proventil Neb Soln) 2.5 mg NEB Q4H PRN PRN Reason: Shortness Of Breath/wheezing Last Admin: 01/17/20 21:47 Dose: 2.5 mg Aspirin (Aspirin) 81 mg PO DAILY [facility] Last Admin: 01/18/20 09:02 Dose: 81 mg Atorvastatin Calcium (Lipitor) 80 mg PO BEDTIME [facility] Promethazine HCl 6.25 mg/ (Sodium Chloride) 50.25 mls @ 200 mls/hr IV Q6H PRN PRN Reason: Nausea/Vomiting Insulin Glargine (Lantus Solostar) 22 units SUBCUT DAILY [facility] Last Admin: 01/18/20 09:05 Dose: 22 units Insulin Human Lispro (Humalog) 0 unit SUBCUT QIDACANDBED [facility]; Protocol Last Admin: 01/18/20 13:03 Dose: 4 units Levothyroxine Sodium (Synthroid) 200 mcg PO ACBREAKFAST [facility] Last Admin: 01/18/20 07:29 Dose: 200 mcg Lorazepam (Ativan) 0.5 mg IVPUSH Q4H PRN PRN Reason: Nausea/Vomiting Last Admin: 01/17/20 20:43 Dose: 0.5 mg Magnesium Hydroxide (Milk Of Magnesia) 30 ml PO Q12H PRN PRN Reason: Constipation Last Admin: 01/18/20 09:03 Dose: 30 ml Melatonin (Melatonin) 9 mg PO BEDTIME [facility] Last Admin: 01/17/20 20:46 Dose: 9 mg Mirtazapine (Remeron) 15 mg PO BEDTIME [facility] Morphine Sulfate (Morphine) 2 mg IVPUSH Q4H PRN PRN Reason: Pain Calcitriol 0.25 Mg * (*Ptom) 0 mg PO DAILY [facility] Last Admin: 01/18/20 09:01 Dose: 0.25 mg Sildenafil Citrate (20 Mg Ptom) 0 mg PO TID [facility] Last Admin: 03/26/20 09:02 Dose: 20 mg Ondansetron HCl (Zofran Odt) 4 mg PO Q6H PRN PRN Reason: Nausea able to take PO Oxycodone HCl (Oxycodone) 5 mg PO Q4H PRN PRN Reason: Pain (moderate 4-6) Last Admin: 01/17/20 21:46 Dose: 5 mg Prochlorperazine Maleate (Compazine) 10 mg PO Q6H PRN PRN Reason: Nausea/Vomiting Last Admin: 01/17/20 18:35 Dose: 10 mg Senna/Docusate Sodium (Senna Plus) 1 tab PO BID PRN PRN Reason: Constipation Sodium Chloride (Saline Flush) 10 ml FLUSH ASDIRECTED PRN PRN Reason: Keep Vein Open Discontinued Medications Carvedilol (Coreg) 3.125 mg PO BID [facility] Sodium Chloride (Normal Saline) 1,000 mls @ 100 mls/hr IV ASDIRECTED [facility] Last Admin: 01/18/20 04:04 Dose: 100 mls/hr Mirtazapine (Remeron) 7.5 mg PO BEDTIME [facility] Last Admin: 01/17/20 20:47 Dose: 7.5 mg Mirtazapine (Remeron) 7.5 mg PO BEDTIME [facility] Atorvastatin 80 Mg * (*Ptom) 0 mg PO BEDTIME [facility] Last Admin: 01/17/20 20:47 Dose: 80 mg Levothyroxine 175 (Mcg Ptom) 0 mcg PO ACBRK [facility] Potassium Chloride (Klor-Con M20) 40 meq PO ONETIME ONE Stop: 01/18/20 12:16 Last Admin: 01/18/20 12:59 Dose: 40 meq - Exam Quality Assessment: Supplemental Oxygen General: Alert, Oriented, Cooperative, No Acute Distress Lungs: Normal Respiratory Effort, Crackles (fine crackles in lower lungs) Cardiovascular: Regular Rhythm, Bradycardia, Murmurs GI/Abdominal Exam: Soft, No Distention Extremities: Pedal Edema (trace bilateral lower leg edema ). No: Increased Warmth Skin: Warm, Dry Psy/Mental Status: Alert, Normal Affect Sepsis Event Note - Evaluation Sepsis Screening Result: No Definite Risk - Focused Exam Vital Signs: Vital Signs Temp Pulse Resp BP Pulse Ox 01/18/20 10:59 35.7 C L 53 L 20 112/51 L 96 01/18/20 07:33 96.9 C H 44 L 20 128/57 L 93 L 01/18/20 03:58 35.8 C L 54 L 18 142/70 H 96 Date Exam was Performed: 01/18/20 Time Exam was Performed: 15:01 - Problem List & Annotations (1) Acute kidney injury SNOMED Code(s): 25609714, 68058579 Code(s): N17.9 - ACUTE KIDNEY FAILURE, UNSPECIFIED Status: Acute Current Visit: Yes (2) Hyponatremia SNOMED Code(s): 05610656 Code(s): E87.1 - HYPO-OSMOLALITY AND HYPONATREMIA Status: Acute Current Visit: Yes (3) Anemia, iron deficiency SNOMED Code(s): 06627039 Code(s): D50.9 - IRON DEFICIENCY ANEMIA, UNSPECIFIED Status: Acute Current Visit: Yes Qualifiers: Iron deficiency anemia type: unspecified iron deficiency Qualified Code(s) : D50.9 - Iron deficiency anemia, unspecified (4) Insulin dependent diabetes mellitus SNOMED Code(s): 45954899 Code(s): GIH8912 - Status: Chronic Current Visit: Yes (5) Congestive heart failure SNOMED Code(s): 83388935 Code(s): I50.9 - HEART FAILURE, UNSPECIFIED Status: Chronic Current Visit : No (6) Acquired hypothyroidism SNOMED Code(s): 403431573 Code(s): E03.9 - HYPOTHYROIDISM, UNSPECIFIED Status: Acute Current Visit : Yes - Problem List Review Problem List Initiated/Reviewed/Updated: Yes - My Orders Last 24 Hours: My Active Orders 01/18/20 12:07 Discontinue Telemetry Monitoring [Cardiac Monitoring Discontinue] [RC] Click to Edit 01/18/20 12:08 Convert IV to Saline Lock [OM.PC] Routine 01/18/20 16:30 GLUCOSE POC LAB TO COLLECT [POC] QIDACANDBED 01/18/20 21:00 GLUCOSE POC LAB TO COLLECT [POC] QIDACANDBED Mirtazapine [Remeron] 15 mg PO BEDTIME atorvaSTATin [Lipitor] 80 mg PO BEDTIME 01/19/20 05:00 BASIC METABOLIC PANEL,BMP [CHEM] Timed HGB [HEMOGLOBIN] [HEME] Routine 01/19/20 07:30 GLUCOSE POC LAB TO COLLECT [POC] QIDACANDBED 01/19/20 11:30 GLUCOSE POC LAB TO COLLECT [POC] QIDACANDBED 01/19/20 16:30 GLUCOSE POC LAB TO COLLECT [POC] QIDACANDBED 01/19/20 21:00 GLUCOSE POC LAB TO COLLECT [POC] QIDACANDBED 01/20/20 07:30 GLUCOSE POC LAB TO COLLECT [POC] QIDACANDBED 01/20/20 11:30 GLUCOSE POC LAB TO COLLECT [POC] QIDACANDBED 01/20/20 16:30 GLUCOSE POC LAB TO COLLECT [POC] QIDACANDBED 01/20/20 21:00 GLUCOSE POC LAB TO COLLECT [POC] QIDACANDBED 01/21/20 07:30 GLUCOSE POC LAB TO COLLECT [POC] QIDACANDBED 01/21/20 11:30 GLUCOSE POC LAB TO COLLECT [POC] QIDACANDBED 01/21/20 16:30 GLUCOSE POC LAB TO COLLECT [POC] QIDACANDBED 01/21/20 21:00 GLUCOSE POC LAB TO COLLECT [POC] QIDACANDBED - Plan Plan:: ASSESSMENT AND PLAN - Acute anemia due to iron deficiency-probably multifactorial with poor kidney function and iron deficiency. Hemoglobin improved with transfusion. -Plan for iron supplementation after the hospital stay -Recheck hemoglobin in the morning Acute kidney injury-I think this is related to too many diuretics and intravascular volume depletion and she has only 1 kidney. Creatinine slightly better again today but still significant elevation beyond baseline. I did discuss the case with the on-call reception clerk at [facility]. He did not feel there was an urgent need for dialysis at this point unless things worsen. I think her volume status is acceptable at this time with no evidence for volume overload. I am hoping her kidney function will come around with a little bit more time. -Hold diuretics -Saline lock IV -Labs in the morning Hyponatremia-seems to be euvolemic today. Level is stable but not improving. -Repeat labs in the morning -Reassess volume status in the morning Diastolic congestive heart failure-severe diastolic dysfunction with restrictive filling based on most recent echocardiogram. Seems to be well compensated at this time. She is borderline bradycardic even without a beta- zenia and her carvedilol will remain on hold. -Reassess volume status in the morning Acquired hypothyroidism-TSH is elevated and free T4 at the upper limits of normal. -Continue levothyroxine Insulin-dependent diabetes mellitus-sugars have been fairly well controlled so far. -Continue long-acting insulin -Sliding scale insulin Maintenance issues - - DVT prophylaxis -ADRIAN stockings - GI prophylaxis -not indicated - Nutrition -low-sodium diet Disposition -I would anticipate discharge home after the hospital stay, possibly with home care Donovan Douglas M.D.
[2020-01-18] MEDS ORDERED: Mirtazapine 15 MG Tab PO SCH (21:00)
[2020-01-18] MEDS: atorvaSTATin 20 MG Tab PO SCH (21:25)
[2020-01-18] MEDS: Melatonin 3 MG Tab PO SCH (21:26)
[2020-01-18] MEDS: Mirtazapine 15 MG Tab PO SCH (21:26)
[2020-01-19] MEDS: Insulin Lispro 100 Unit/ML 3 ML KwikPen SUBCUT SCH (08:03)
[2020-01-19] MEDS: Levothyroxine 100 MCG Tab PO SCH (08:04)
[2020-01-19] MEDS: CALCITRIOL 0.25 MG PO SCH (09:22)
[2020-01-19] MEDS: Aspirin 81 MG Tab.Chew PO SCH (09:22)
[2020-01-19] MEDS: SILDENAFIL CITRATE 20 MG PO SCH ×3 (09:23→20:17)
[2020-01-19] MEDS: Magnesium Hydroxide 400 MG/5 ML Susp 30 ML Cup PO PRN (10:10)
[2020-01-19] MEDS: Insulin Glargine,Human Rec. Analog 100 Units/ML 3 ML Pen SUBCUT SCH (10:10)
--- NOTE | 2020-01-19 13:15 | PCM.PN ---
- General Info Date of Service: 01/19/20 Subjective Update: There were no acute events overnight. She did not have any fevers. She did use her supplemental oxygen like usual overnight. No complaints of shortness of breath or nausea this morning. She is weak but her strength seems to be slowly improving. Appetite is not great but better than at the time of admission. She did sleep fairly well last night. Sodium is slightly better but kidney function has not improved from yesterday. No evidence for volume overload at this time. Functional Status: Reports: Pain Controlled - Review of Systems General: Reports: Weakness. Denies: Fever - Patient Data Vitals - Most Recent: Last Vital Signs Temp 36.2 C 01/19/20 11:33 Pulse 67 01/19/20 11:33 Resp 12 01/19/20 11:33 BP 136/56 L 01/19/20 11:33 Pulse Ox 93 L 01/19/20 11:33 Weight - Most Recent: 77.201 kg I&O - Last 24 Hours: Intake & Output 01/18/20 01/19/20 01/19/20 22:59 06:59 14:59 Intake Total 360 440 Output Total 500 500 Balance -140 -60 Lab Results Last 24 Hours: Laboratory Results - last 24 hr 01/19/20 01/19/20 Range/Units 04:20 04:20 Hgb 8.6 L (12.0-15.0) g/dL Sodium 128 L (140-148) mmol/L Potassium 4.6 (3.6-5.2) mmol/L Chloride 93 L (100-108) mmol/L Carbon Dioxide 28 (21-32) mmol/L Anion Gap 11.6 (5.0-14.0) mmol/L BUN 85 H* (7-18) mg/dL Creatinine 3.0 H (0.6-1.0) mg/dL Est Cr Clr Drug Dosing 12.89 mL/min Estimated GFR (MDRD) 16 L (>60) Glucose 79 (74-106) mg/dL Calcium 8.5 (8.5-10.1) mg/dL Med Orders - Current: Current Medications Acetaminophen (Tylenol) 650 mg PO Q4H PRN PRN Reason: Pain (Mild 1-3)/fever Albuterol (Proventil Neb Soln) 2.5 mg NEB Q4H PRN PRN Reason: Shortness Of Breath/wheezing Last Admin: 01/17/20 21:47 Dose: 2.5 mg Aspirin (Aspirin) 81 mg PO DAILY [facility] Last Admin: 01/19/20 09:22 Dose: 81 mg Atorvastatin Calcium (Lipitor) 80 mg PO BEDTIME [facility] Last Admin: 01/18/20 21:25 Dose: 80 mg Promethazine HCl 6.25 mg/ (Sodium Chloride) 50.25 mls @ 200 mls/hr IV Q6H PRN PRN Reason: Nausea/Vomiting Insulin Glargine (Lantus Solostar) 22 units SUBCUT DAILY [facility] Last Admin: 01/19/20 10:10 Dose: 22 units Levothyroxine Sodium (Synthroid) 200 mcg PO ACBREAKFAST [facility] Last Admin: 01/19/20 08:04 Dose: 200 mcg Lorazepam (Ativan) 0.5 mg IVPUSH Q4H PRN PRN Reason: Nausea/Vomiting Last Admin: 01/17/20 20:43 Dose: 0.5 mg Magnesium Hydroxide (Milk Of Magnesia) 30 ml PO Q12H PRN PRN Reason: Constipation Last Admin: 01/19/20 10:10 Dose: 30 ml Melatonin (Melatonin) 9 mg PO BEDTIME [facility] Last Admin: 01/18/20 21:26 Dose: 9 mg Mirtazapine (Remeron) 15 mg PO BEDTIME [facility] Last Admin: 01/18/20 21:26 Dose: 15 mg Morphine Sulfate (Morphine) 2 mg IVPUSH Q4H PRN PRN Reason: Pain Calcitriol 0.25 Mg * (*Ptom) 0 mg PO DAILY [facility] Last Admin: 01/19/20 09:22 Dose: 0.25 mg Sildenafil Citrate (20 Mg Ptom) 0 mg PO TID [facility] Last Admin: 01/19/20 09:23 Dose: 20 mg Ondansetron HCl (Zofran Odt) 4 mg PO Q6H PRN PRN Reason: Nausea able to take PO Oxycodone HCl (Oxycodone) 5 mg PO Q4H PRN PRN Reason: Pain (moderate 4-6) Last Admin: 01/17/20 21:46 Dose: 5 mg Prochlorperazine Maleate (Compazine) 10 mg PO Q6H PRN PRN Reason: Nausea/Vomiting Last Admin: 01/17/20 18:35 Dose: 10 mg Senna/Docusate Sodium (Senna Plus) 1 tab PO BID PRN PRN Reason: Constipation Sodium Chloride (Saline Flush) 10 ml FLUSH ASDIRECTED PRN PRN Reason: Keep Vein Open Discontinued Medications Carvedilol (Coreg) 3.125 mg PO BID [facility] Sodium Chloride (Normal Saline) 1,000 mls @ 100 mls/hr IV ASDIRECTED [facility] Last Admin: 01/18/20 04:04 Dose: 100 mls/hr Insulin Human Lispro (Humalog) 0 unit SUBCUT QIDACANDBED [facility]; Protocol Last Admin: 01/19/20 08:03 Dose: Not Given Mirtazapine (Remeron) 7.5 mg PO BEDTIME [facility] Last Admin: 01/17/20 20:47 Dose: 7.5 mg Mirtazapine (Remeron) 7.5 mg PO BEDTIME [facility] Atorvastatin 80 Mg * (*Ptom) 0 mg PO BEDTIME [facility] Last Admin: 01/17/20 20:47 Dose: 80 mg Levothyroxine 175 (Mcg Ptom) 0 mcg PO ACBRK [facility] Potassium Chloride (Klor-Con M20) 40 meq PO ONETIME ONE Stop: 01/18/20 12:16 Last Admin: 01/18/20 12:59 Dose: 40 meq - Exam Quality Assessment: Supplemental Oxygen General: Alert, Oriented, Cooperative, No Acute Distress Lungs: Normal Respiratory Effort, Crackles (Few fine crackles at both bases) Cardiovascular: Regular Rate, Bradycardia GI/Abdominal Exam: Soft, Non-Tender, No Distention Extremities: Pedal Edema (Trace bilateral lower extremity edema). No: Increased Warmth Psy/Mental Status: Alert, Normal Affect Sepsis Event Note - Evaluation Sepsis Screening Result: No Definite Risk - Focused Exam Vital Signs: Vital Signs Temp Pulse Pulse Resp BP Pulse Ox 01/19/20 11:33 36.2 C 67 12 136/56 L 93 L 01/19/20 08:08 36.2 C 54 L 18 144/50 H 96 01/19/20 02:44 36.6 C 56 L 18 140/60 97 Date Exam was Performed: 01/19/20 Time Exam was Performed: 13:12 - Problem List & Annotations (1) Acute kidney injury SNOMED Code(s): 47064238, 03784568 Code(s): N17.9 - ACUTE KIDNEY FAILURE, UNSPECIFIED Status: Acute Current Visit: Yes (2) Hyponatremia SNOMED Code(s): 02263632 Code(s): E87.1 - HYPO-OSMOLALITY AND HYPONATREMIA Status: Acute Current Visit: Yes (3) Anemia, iron deficiency SNOMED Code(s): 85211582 Code(s): D50.9 - IRON DEFICIENCY ANEMIA, UNSPECIFIED Status: Acute Current Visit: Yes Qualifiers: Iron deficiency anemia type: unspecified iron deficiency Qualified Code(s) : D50.9 - Iron deficiency anemia, unspecified (4) Insulin dependent diabetes mellitus SNOMED Code(s): 00697330 Code(s): SWA3929 - Status: Chronic Current Visit: Yes (5) Congestive heart failure SNOMED Code(s): 88046712 Code(s): I50.9 - HEART FAILURE, UNSPECIFIED Status: Chronic Current Visit : No (6) Acquired hypothyroidism SNOMED Code(s): 649581360 Code(s): E03.9 - HYPOTHYROIDISM, UNSPECIFIED Status: Acute Current Visit : Yes - Problem List Review Problem List Initiated/Reviewed/Updated: Yes - My Orders Last 24 Hours: My Active Orders 01/18/20 13:12 Daily Weight [Height and Weight] [RC] DAILY 01/18/20 21:00 Mirtazapine [Remeron] 15 mg PO BEDTIME atorvaSTATin [Lipitor] 80 mg PO BEDTIME 01/19/20 16:30 GLUCOSE POC LAB TO COLLECT [POC] QIDACANDBED 01/19/20 21:00 GLUCOSE POC LAB TO COLLECT [POC] QIDACANDBED 01/20/20 07:30 GLUCOSE POC LAB TO COLLECT [POC] QIDACANDBED 01/20/20 11:30 GLUCOSE POC LAB TO COLLECT [POC] QIDACANDBED 01/20/20 16:30 GLUCOSE POC LAB TO COLLECT [POC] QIDACANDBED 01/20/20 21:00 GLUCOSE POC LAB TO COLLECT [POC] QIDACANDBED 01/21/20 07:30 GLUCOSE POC LAB TO COLLECT [POC] QIDACANDBED 01/21/20 11:30 GLUCOSE POC LAB TO COLLECT [POC] QIDACANDBED 01/21/20 16:30 GLUCOSE POC LAB TO COLLECT [POC] QIDACANDBED 01/21/20 21:00 GLUCOSE POC LAB TO COLLECT [POC] QIDACANDBED - Plan Plan:: ASSESSMENT AND PLAN - Acute anemia due to iron deficiency-probably multifactorial with poor kidney function and iron deficiency. Hemoglobin improved with transfusion and has remained stable. -Plan for iron supplementation after the hospital stay -Recheck hemoglobin in the morning Acute kidney injury-I think this is related to too many diuretics and intravascular volume depletion and she has only 1 kidney. Creatinine stable compared to yesterday but not dramatically improved. Sodium is a little better so I am hoping that her filtering function is improving. Volume status appears appropriate again today. Blood pressures are stable. -Hold diuretics -Saline lock IV -Labs in the morning Hyponatremia-seems to be euvolemic today. Level is slightly better today. -Repeat labs in the morning -Reassess volume status in the morning Diastolic congestive heart failure-severe diastolic dysfunction with restrictive filling based on most recent echocardiogram. Seems to be well compensated at this time. She is borderline bradycardic even without a beta- zenia and her carvedilol will remain on hold. -Reassess volume status in the morning Acquired hypothyroidism-TSH is elevated and free T4 at the upper limits of normal. -Continue levothyroxine Insulin-dependent diabetes mellitus-sugars have been fairly well controlled so far but a little low this morning. -Continue long-acting insulin -Sliding scale insulin Maintenance issues - - DVT prophylaxis -ADRIAN stockings - GI prophylaxis -not indicated - Nutrition -low-sodium diet Disposition -I would anticipate discharge home after the hospital stay, possibly with home care Donovan Douglas M.D.
[2020-01-19] MEDS: Melatonin 3 MG Tab PO SCH (20:17)
[2020-01-19] MEDS: Mirtazapine 15 MG Tab PO SCH (20:17)
[2020-01-19] MEDS: atorvaSTATin 20 MG Tab PO SCH (20:17)
[2020-01-20] MEDS: Levothyroxine 100 MCG Tab PO SCH (07:34)
[2020-01-20 07:37] VITALS: BP 127/45; PULSE 64
[2020-01-20] MEDS: CALCITRIOL 0.25 MG PO SCH (09:50)
[2020-01-20] MEDS: Aspirin 81 MG Tab.Chew PO SCH (09:50)
[2020-01-20] MEDS: SILDENAFIL CITRATE 20 MG PO SCH (09:50)
[2020-01-20] MEDS: Insulin Glargine,Human Rec. Analog 100 Units/ML 3 ML Pen SUBCUT SCH (09:51)
--- NOTE | 2020-01-20 10:42 | PCM.DCSUM1 ---
Discharge Summary - Hospital Course Brief History: 69-year-old female with history of insulin-dependent diabetes, stage IV chronic kidney disease, diastolic congestive heart failure and untreated obstructive sleep apnea who presented to the clinic with fatigue and dyspnea on exertion. She was directly admitted to the hospital for management of acute on chronic kidney disease as well as severe anemia with a hemoglobin of 5.9. Diagnosis: Stroke: No - Discharge Data Discharge Date: 01/20/20 Discharge Disposition: Home, Home Health Agency 06 Condition: Good - Referral to Home Health Date of Face to Face Encounter: 01/20/20 Reason for Homebound Status: weakness and dyspnea on exertion 2/2 acute kidney injury and anemia Primary Care Physician: Kei Kilgore NP Skilled Need: Nursing - needs BMP on 01/22 - Discharge Diagnosis/Problem(s) (1) Acute kidney injury SNOMED Code(s): 79091724, 35432295 ICD Code: N17.9 - ACUTE KIDNEY FAILURE, UNSPECIFIED Status: Acute (2) Hyponatremia SNOMED Code(s): 14610710 ICD Code: E87.1 - HYPO-OSMOLALITY AND HYPONATREMIA Status: Acute (3) Anemia, iron deficiency SNOMED Code(s): 95988587 ICD Code: D50.9 - IRON DEFICIENCY ANEMIA, UNSPECIFIED Status: Acute Qualifiers: Iron deficiency anemia type: unspecified iron deficiency Qualified Code(s) : D50.9 - Iron deficiency anemia, unspecified (4) Insulin dependent diabetes mellitus SNOMED Code(s): 46751423 ICD Code: [id number] - Status: Chronic (5) Congestive heart failure SNOMED Code(s): 60640562 ICD Code: I50.9 - HEART FAILURE, UNSPECIFIED Status: Chronic (6) Acquired hypothyroidism SNOMED Code(s): 188644180 ICD Code: E03.9 - HYPOTHYROIDISM, UNSPECIFIED Status: Acute - Patient Summary/Data Hospital Course: Marisol presented initially to the clinic. Laboratory studies obtained at the clinic showed a hemoglobin of 5.9 and a creatinine of 3.2 with a sodium of 126. These numbers were dramatically lower than they were last time they were checked just over a month ago. She was sent to the hospital for further work- up and management. For her severe anemia we did transfuse 2 units of blood to start with. Regarding her acute kidney injury I was suspicious this was related to intravascular volume depletion and overdiuresis. We stopped her diuretics and started her on IV fluids. The morning after admission her hemoglobin remained low but had improved slightly to just over 7. We did transfuse 1/3 unit of blood at this point. Her kidney function remained stable. We continued the IV fluids and additional 24 hours. Her hemoglobin did respond nicely after the third transfusion and was greater than 9. Kidney function unfortunately remained significantly decreased but was not any worse. I did talk to the on-call infectious waste technician at [facility] in [place]. He recommended ongoing conservative management to try to correct her sodium and optimize her volume status which appeared to be close to euvolemic at this point. He did not see any obvious indication for acute dialysis. Over the next couple of days we did see slow improvement in her kidney function and her creatinine was down to 2.9 at the time of discharge. Her sodium has improved to 130. Her weight is up a few pounds but she still appears fairly euvolemic. She does not have any obvious evidence for pulmonary edema or volume overload. I suspect that the anemia was multifactorial with a significant decline in her kidney function as well as severe iron deficiency as determined based on laboratory studies obtained at the time of admission. Hemoglobin has responded well to transfusion. I think her acute on chronic kidney injury was related to overdiuresis and has improved slowly with holding of her diuretics. I suspect this was a slow decline over weeks and will take a few more days to improve but seems to be heading in the right direction at this point. Her potassium level has remained normal. I recommended that she continue to hold her diuretics with the plan to recheck lab work in a couple of days. She has follow-up scheduled 2 days after her repeat laboratory studies are to be scheduled. I did start her on an iron supplement for the iron deficiency anemia. She will need a hemoglobin checked in a couple of days as well. She is safe and stable for discharge. She is feeling fair amount better with the treatment provided here in the hospital but admits she has some room for improvement prior to getting back to where she was a little over a month ago. Also noted during the hospital stay was borderline hypotension and bradycardia. We did hold her beta-zenia and calcium channel zenia. Unfortunately she remained bradycardic but after review of her clinic chart she is always a little bradycardic with heart rates in the 50s. This was similar to what we saw during the course of the hospital stay. We will continue to hold her beta- zenia in the short-term. Her blood pressures have been normal without any antihypertensive medication and the amlodipine will remain on hold as well. She was interested in home health care to help monitor and manage symptoms after her transition home. - Patient Instructions Diet: Diabetic Diet (low sodium ) Activity: As Tolerated Showering/Bathing: May Shower Notify Provider of: Fever, Increased Pain, Nausea and/or Vomiting Other/Special Instructions: 1. You were in the hospital for management of anemia due to both iron deficiency and chronic kidney disease. Your hemoglobin has improved with blood transfusions. I do recommend that you take an iron supplement twice daily with breakfast and supper to help replenish your hemoglobin stores. I have printed out a prescription for the iron supplement which we can fill if you do not have an iron supplement available at home. 2. Also noted during the hospital stay was acute on chronic kidney injury. I suspect this was related to medications and in particular too large of a dose of diuretics. Your kidney function has been slowly improving. I would recommend that we continue to hold your blood pressure medications and diuretics , at least until your follow-up with Kei Kilgore next . The medications to hold will be outlined below: -Furosemide. -Metolazone. -Amlodipine. - Carvedilol. 3. During the hospital stay your heart rate was quite slow and we have held your carvedilol which can slow it down further. Your heart rate has remained in the 50s and I would recommend that we continue to hold the carvedilol until your follow-up with Kei. 4. I have placed a referral to home health care. They will help ease your transition home. I would recommend that we recheck a BMP on January 22 to recheck your kidney function, sodium and potassium levels. - Discharge Plan *PRESCRIPTION DRUG MONITORING PROGRAM REVIEWED*: Not Applicable *COPY OF PRESCRIPTION DRUG MONITORING REPORT IN PATIENT ABHISHEK: Not Applicable Prescriptions/Med Rec: Ferrous Sulfate 325 mg PO BIDAC #60 tablet Home Medications: Home Meds Aspirin [Niko Chewable Aspirin] 81 mg PO DAILY 11/21/13 [History] amLODIPine [Norvasc] 10 mg PO DAILY 11/21/13 [History] Furosemide 40 mg PO BID 12/10/13 [History] Nitroglycerin [Nitrostat] 0.4 mg SL ASDIRECTED PRN 01/15/14 [History] atorvaSTATin [Lipitor] 80 mg PO BEDTIME 01/15/14 [History] Levothyroxine 175 mcg PO ACBRK 12/31/18 [History] Mirtazapine 7.5 mg PO BEDTIME 12/31/18 [History] Sildenafil Citrate 20 mg PO TID 12/31/18 [History] Insulin Aspart [NovoLOG] 8 units SUBCNJ ACLUNCH 12/30/19 [History] Insulin Degludec [Tresiba Flextouch U-100] 22 units SUBCUT DAILY 12/30/19 [ History] calcitrioL [Calcitriol] 0.25 mg PO DAILY 12/30/19 [History] carvediloL [Carvedilol] 3.125 mg PO BID 12/30/19 [History] metOLazone [Metolazone] 2.5 mg PO Q48H 12/30/19 [History] Ferrous Sulfate 325 mg PO BIDAC #60 tablet 01/20/20 [Rx] Oxygen Therapy Mode: Nasal Cannula (2 L/min at night and if short of breath during the day) Patient Handouts: Acute Kidney Injury, Adult, Anemia Referrals: eKi Kilgore, [employer] [Primary Care Provider] - 01/25/20 1:00 pm (Please arrive 15 minutes early to register for your appointment.) - Discharge Summary/Plan Comment DC Time >30 min.: Yes (40-setting up home care and follow-up) - Patient Data Vitals - Most Recent: Last Vital Signs Temp 36.4 C 01/20/20 07:34 Pulse 64 01/20/20 07:34 Resp 18 01/20/20 07:34 BP 127/45 L 01/20/20 07:34 Pulse Ox 96 01/20/20 09:00 Weight - Most Recent: 77.111 kg I&O - Last 24 hours: Intake & Output 01/19/20 01/20/20 01/20/20 22:59 06:59 14:59 Intake Total 240 100 120 Output Total 150 250 250 Balance 90 -150 -130 Lab Results - Last 24 hrs: Laboratory Results - last 24 hr 01/16/20 01/20/20 01/20/20 Range/Units 12:42 08:52 08:52 Hgb 8.1 L (12.0-15.0) g/dL Sodium 130 L (140-148) mmol/L Potassium 4.7 (3.6-5.2) mmol/L Chloride 93 L (100-108) mmol/L Carbon Dioxide 28 (21-32) mmol/L Anion Gap 13.7 (5.0-14.0) mmol/L BUN 81 H* (7-18) mg/dL Creatinine 2.9 H (0.6-1.0) mg/dL Est Cr Clr Drug Dosing 13.34 mL/min Estimated GFR (MDRD) 16 L (>60) Glucose 104 (74-106) mg/dL Calcium 8.6 (8.5-10.1) mg/dL Crossmatch See Detail Med Orders - Current: Current Medications Acetaminophen (Tylenol) 650 mg PO Q4H PRN PRN Reason: Pain (Mild 1-3)/fever Albuterol (Proventil Neb Soln) 2.5 mg NEB Q4H PRN PRN Reason: Shortness Of Breath/wheezing Last Admin: 01/17/20 21:47 Dose: 2.5 mg Aspirin (Aspirin) 81 mg PO DAILY [facility] Last Admin: 01/20/20 09:50 Dose: 81 mg Atorvastatin Calcium (Lipitor) 80 mg PO BEDTIME [facility] Last Admin: 01/19/20 20:17 Dose: 80 mg Promethazine HCl 6.25 mg/ (Sodium Chloride) 50.25 mls @ 200 mls/hr IV Q6H PRN PRN Reason: Nausea/Vomiting Insulin Glargine (Lantus Solostar) 22 units SUBCUT DAILY [facility] Last Admin: 01/20/20 09:51 Dose: 22 units Levothyroxine Sodium (Synthroid) 200 mcg PO ACBREAKFAST [facility] Last Admin: 01/20/20 07:34 Dose: 200 mcg Lorazepam (Ativan) 0.5 mg IVPUSH Q4H PRN PRN Reason: Nausea/Vomiting Last Admin: 01/17/20 20:43 Dose: 0.5 mg Magnesium Hydroxide (Milk Of Magnesia) 30 ml PO Q12H PRN PRN Reason: Constipation Last Admin: 01/19/20 10:10 Dose: 30 ml Melatonin (Melatonin) 9 mg PO BEDTIME [facility] Last Admin: 01/19/20 20:17 Dose: 9 mg Mirtazapine (Remeron) 15 mg PO BEDTIME [facility] Last Admin: 01/19/20 20:17 Dose: 15 mg Morphine Sulfate (Morphine) 2 mg IVPUSH Q4H PRN PRN Reason: Pain Calcitriol 0.25 Mg * (*Ptom) 0 mg PO DAILY [facility] Last Admin: 01/20/20 09:50 Dose: 0.25 mg Sildenafil Citrate (20 Mg Ptom) 0 mg PO TID [facility] Last Admin: 01/20/20 09:50 Dose: 20 mg Ondansetron HCl (Zofran Odt) 4 mg PO Q6H PRN PRN Reason: Nausea able to take PO Oxycodone HCl (Oxycodone) 5 mg PO Q4H PRN PRN Reason: Pain (moderate 4-6) Last Admin: 01/17/20 21:46 Dose: 5 mg Prochlorperazine Maleate (Compazine) 10 mg PO Q6H PRN PRN Reason: Nausea/Vomiting Last Admin: 01/17/20 18:35 Dose: 10 mg Senna/Docusate Sodium (Senna Plus) 1 tab PO BID PRN PRN Reason: Constipation Sodium Chloride (Saline Flush) 10 ml FLUSH ASDIRECTED PRN PRN Reason: Keep Vein Open Discontinued Medications Carvedilol (Coreg) 3.125 mg PO BID [facility] Sodium Chloride (Normal Saline) 1,000 mls @ 100 mls/hr IV ASDIRECTED [facility] Last Admin: 01/18/20 04:04 Dose: 100 mls/hr Insulin Human Lispro (Humalog) 0 unit SUBCUT QIDACANDBED [facility]; Protocol Last Admin: 01/19/20 08:03 Dose: Not Given Mirtazapine (Remeron) 7.5 mg PO BEDTIME [facility] Last Admin: 01/17/20 20:47 Dose: 7.5 mg Mirtazapine (Remeron) 7.5 mg PO BEDTIME [facility] Atorvastatin 80 Mg * (*Ptom) 0 mg PO BEDTIME [facility] Last Admin: 01/17/20 20:47 Dose: 80 mg Levothyroxine 175 (Mcg Ptom) 0 mcg PO ACBRK [facility] Potassium Chloride (Klor-Con M20) 40 meq PO ONETIME ONE Stop: 01/18/20 12:16 Last Admin: 01/18/20 12:59 Dose: 40 meq
--- NOTE | 2020-01-20 10:42 | PCM.PN ---
- General Info Date of Service: 01/20/20 - Patient Data Vitals - Most Recent: Last Vital Signs Temp 36.4 C 01/20/20 07:34 Pulse 64 01/20/20 07:34 Resp 18 01/20/20 07:34 BP 127/45 L 01/20/20 07:34 Pulse Ox 96 01/20/20 09:00 Weight - Most Recent: 77.111 kg I&O - Last 24 Hours: Intake & Output 01/19/20 01/20/20 01/20/20 22:59 06:59 14:59 Intake Total 240 100 120 Output Total 150 250 250 Balance 90 -150 -130 Lab Results Last 24 Hours: Laboratory Results - last 24 hr 01/16/20 01/20/20 01/20/20 Range/Units 12:42 08:52 08:52 Hgb 8.1 L (12.0-15.0) g/dL Sodium 130 L (140-148) mmol/L Potassium 4.7 (3.6-5.2) mmol/L Chloride 93 L (100-108) mmol/L Carbon Dioxide 28 (21-32) mmol/L Anion Gap 13.7 (5.0-14.0) mmol/L BUN 81 H* (7-18) mg/dL Creatinine 2.9 H (0.6-1.0) mg/dL Est Cr Clr Drug Dosing 13.34 mL/min Estimated GFR (MDRD) 16 L (>60) Glucose 104 (74-106) mg/dL Calcium 8.6 (8.5-10.1) mg/dL Crossmatch See Detail Med Orders - Current: Current Medications Acetaminophen (Tylenol) 650 mg PO Q4H PRN PRN Reason: Pain (Mild 1-3)/fever Albuterol (Proventil Neb Soln) 2.5 mg NEB Q4H PRN PRN Reason: Shortness Of Breath/wheezing Last Admin: 01/17/20 21:47 Dose: 2.5 mg Aspirin (Aspirin) 81 mg PO DAILY [facility] Last Admin: 01/20/20 09:50 Dose: 81 mg Atorvastatin Calcium (Lipitor) 80 mg PO BEDTIME [facility] Last Admin: 01/19/20 20:17 Dose: 80 mg Promethazine HCl 6.25 mg/ (Sodium Chloride) 50.25 mls @ 200 mls/hr IV Q6H PRN PRN Reason: Nausea/Vomiting Insulin Glargine (Lantus Solostar) 22 units SUBCUT DAILY [facility] Last Admin: 01/20/20 09:51 Dose: 22 units Levothyroxine Sodium (Synthroid) 200 mcg PO ACBREAKFAST [facility] Last Admin: 01/20/20 07:34 Dose: 200 mcg Lorazepam (Ativan) 0.5 mg IVPUSH Q4H PRN PRN Reason: Nausea/Vomiting Last Admin: 01/17/20 20:43 Dose: 0.5 mg Magnesium Hydroxide (Milk Of Magnesia) 30 ml PO Q12H PRN PRN Reason: Constipation Last Admin: 01/19/20 10:10 Dose: 30 ml Melatonin (Melatonin) 9 mg PO BEDTIME [facility] Last Admin: 01/19/20 20:17 Dose: 9 mg Mirtazapine (Remeron) 15 mg PO BEDTIME [facility] Last Admin: 01/19/20 20:17 Dose: 15 mg Morphine Sulfate (Morphine) 2 mg IVPUSH Q4H PRN PRN Reason: Pain Calcitriol 0.25 Mg * (*Ptom) 0 mg PO DAILY [facility] Last Admin: 01/20/20 09:50 Dose: 0.25 mg Sildenafil Citrate (20 Mg Ptom) 0 mg PO TID [facility] Last Admin: 01/20/20 09:50 Dose: 20 mg Ondansetron HCl (Zofran Odt) 4 mg PO Q6H PRN PRN Reason: Nausea able to take PO Oxycodone HCl (Oxycodone) 5 mg PO Q4H PRN PRN Reason: Pain (moderate 4-6) Last Admin: 01/17/20 21:46 Dose: 5 mg Prochlorperazine Maleate (Compazine) 10 mg PO Q6H PRN PRN Reason: Nausea/Vomiting Last Admin: 01/17/20 18:35 Dose: 10 mg Senna/Docusate Sodium (Senna Plus) 1 tab PO BID PRN PRN Reason: Constipation Sodium Chloride (Saline Flush) 10 ml FLUSH ASDIRECTED PRN PRN Reason: Keep Vein Open Discontinued Medications Carvedilol (Coreg) 3.125 mg PO BID [facility] Sodium Chloride (Normal Saline) 1,000 mls @ 100 mls/hr IV ASDIRECTED [facility] Last Admin: 01/18/20 04:04 Dose: 100 mls/hr Insulin Human Lispro (Humalog) 0 unit SUBCUT QIDACANDBED [facility]; Protocol Last Admin: 01/19/20 08:03 Dose: Not Given Mirtazapine (Remeron) 7.5 mg PO BEDTIME [facility] Last Admin: 01/17/20 20:47 Dose: 7.5 mg Mirtazapine (Remeron) 7.5 mg PO BEDTIME [facility] Atorvastatin 80 Mg * (*Ptom) 0 mg PO BEDTIME [facility] Last Admin: 01/17/20 20:47 Dose: 80 mg Levothyroxine 175 (Mcg Ptom) 0 mcg PO ACBRK [facility] Potassium Chloride (Klor-Con M20) 40 meq PO ONETIME ONE Stop: 01/18/20 12:16 Last Admin: 01/18/20 12:59 Dose: 40 meq Sepsis Event Note - Evaluation Sepsis Screening Result: No Definite Risk - Focused Exam Vital Signs: Vital Signs Temp Pulse Resp BP Pulse Ox Pulse Ox 01/20/20 09:00 96 01/20/20 07:34 36.4 C 64 18 127/45 L 97 01/20/20 02:21 37.1 C 55 L 20 134/44 L 92 L Date Exam was Performed: 01/20/20 Time Exam was Performed: 10:42 - Problem List & Annotations (1) Acute kidney injury SNOMED Code(s): 22868151, 79591825 Code(s): N17.9 - ACUTE KIDNEY FAILURE, UNSPECIFIED Status: Acute Current Visit: Yes (2) Hyponatremia SNOMED Code(s): 30969743 Code(s): E87.1 - HYPO-OSMOLALITY AND HYPONATREMIA Status: Acute Current Visit: Yes (3) Anemia, iron deficiency SNOMED Code(s): 80567381 Code(s): D50.9 - IRON DEFICIENCY ANEMIA, UNSPECIFIED Status: Acute Current Visit: Yes Qualifiers: Iron deficiency anemia type: unspecified iron deficiency Qualified Code(s) : D50.9 - Iron deficiency anemia, unspecified (4) Insulin dependent diabetes mellitus SNOMED Code(s): 89853185 Code(s): IKK1351 - Status: Chronic Current Visit: Yes (5) Congestive heart failure SNOMED Code(s): 02019249 Code(s): I50.9 - HEART FAILURE, UNSPECIFIED Status: Chronic Current Visit : No (6) Acquired hypothyroidism SNOMED Code(s): 766193585 Code(s): E03.9 - HYPOTHYROIDISM, UNSPECIFIED Status: Acute Current Visit : Yes - My Orders Last 24 Hours: My Active Orders 01/20/20 10:39 Ready for Discharge [RC] PER UNIT ROUTINE 01/20/20 11:30 GLUCOSE POC LAB TO COLLECT [POC] QIDACANDBED 01/20/20 16:30 GLUCOSE POC LAB TO COLLECT [POC] QIDACANDBED 01/20/20 21:00 GLUCOSE POC LAB TO COLLECT [POC] QIDACANDBED 01/21/20 07:30 GLUCOSE POC LAB TO COLLECT [POC] QIDACANDBED 01/21/20 11:30 GLUCOSE POC LAB TO COLLECT [POC] QIDACANDBED 01/21/20 16:30 GLUCOSE POC LAB TO COLLECT [POC] QIDACANDBED 01/21/20 21:00 GLUCOSE POC LAB TO COLLECT [POC] QIDACANDBED - Plan Plan:: ASSESSMENT AND PLAN - Acute anemia due to iron deficiency-probably multifactorial with poor kidney function and iron deficiency. Hemoglobin improved with transfusion and has remained stable. -Plan for iron supplementation after the hospital stay -Recheck hemoglobin in the morning Acute kidney injury-I think this is related to too many diuretics and intravascular volume depletion and she has only 1 kidney. Creatinine stable compared to yesterday but not dramatically improved. Sodium is a little better so I am hoping that her filtering function is improving. Volume status appears appropriate again today. Blood pressures are stable. -Hold diuretics -Saline lock IV -Labs in the morning Hyponatremia-seems to be euvolemic today. Level is slightly better today. -Repeat labs in the morning -Reassess volume status in the morning Diastolic congestive heart failure-severe diastolic dysfunction with restrictive filling based on most recent echocardiogram. Seems to be well compensated at this time. She is borderline bradycardic even without a beta- zenia and her carvedilol will remain on hold. -Reassess volume status in the morning Acquired hypothyroidism-TSH is elevated and free T4 at the upper limits of normal. -Continue levothyroxine Insulin-dependent diabetes mellitus-sugars have been fairly well controlled so far but a little low this morning. -Continue long-acting insulin -Sliding scale insulin Maintenance issues - - DVT prophylaxis -ADRIAN stockings - GI prophylaxis -not indicated - Nutrition -low-sodium diet Disposition -I would anticipate discharge home after the hospital stay, possibly with home care Donovan Douglas M.D.
== END 2020-01-20 12:15 | disposition home health service (06) | DRG 683 ==
LOC: JP.MS 10:26 → OBSVTOIN 10:27
PROVIDERS: ADMIT Internal Medicine; ATTEND Internal Medicine
PROC: 30233N1 Transfusion of Nonautologous Red Blood Cells into Peripheral Vein, Percutaneous Approach (ICD-10-PCS; principal; 2020-01-17)
DX: N17.9 Acute kidney failure, unspecified (principal); E87.1 Hypo-osmolality and hyponatremia; I13.0 Hypertensive heart and chronic kidney disease with heart failure and stage 1 through stage 4 chronic kidney disease, or unspecified chronic kidney disease; I50.30 Unspecified diastolic (congestive) heart failure; D50.9 Iron deficiency anemia, unspecified; I50.9 Heart failure, unspecified; E03.9 Hypothyroidism, unspecified; I25.10 Atherosclerotic heart disease of native coronary artery without angina pectoris; E78.00 Pure hypercholesterolemia, unspecified; M81.0 Age-related osteoporosis without current pathological fracture; F41.9 Anxiety disorder, unspecified; F32.9 Major depressive disorder, single episode, unspecified; Z66 Do not resuscitate; E86.1 Hypovolemia; E11.22 Type 2 diabetes mellitus with diabetic chronic kidney disease; N18.4 Chronic kidney disease, stage 4 (severe); Z88.2 Allergy status to sulfonamides; Z88.8 Allergy status to other drugs, medicaments and biological substances; Z79.82 Long term (current) use of aspirin; Z79.890 Hormone replacement therapy; Z79.4 Long term (current) use of insulin; Z79.899 Other long term (current) drug therapy; I25.2 Old myocardial infarction; Z90.49 Acquired absence of other specified parts of digestive tract
CPT/HCPCS: 36415; 36430; 80048; 81001; 82728; 82962; 83550; 83735; 84439; 84443; 85018; 85027; 86140; 86850; 86900; 86901; 86920; 86922; 94640; A9270-GY; J1815; J1815-GY; J2060; J7030; P9016; Q0164

== ENCOUNTER 2020-03-02 07:59 | Emergency (ER) | payer MEDICAID, MEDICARE ==
[2020-03-02] MEDS ORDERED: 50% Dextrose in Water 50 ML Syringe IVPUSH ONE (08:12)
[2020-03-02] MEDS ORDERED: Ondansetron 4 MG/2 ML SDV IVPUSH ONE (08:12)
--- NOTE | 2020-03-02 08:26 | EDM.PDOC ---
ED HPI GENERAL MEDICAL PROBLEM - General Chief Complaint: Diabetic Complaint Stated Complaint: LOW BLOOD SUGAR, VOMITING Time Seen by Provider: 03/02/20 08:12 Source of Information: Reports: Patient, RN Notes Reviewed History Limitations: Reports: No Limitations - History of Present Illness INITIAL COMMENTS - FREE TEXT/NARRATIVE: 69-year-old female presents emergency department today with hypoglycemic event was found a blood sugar 26 at home she is a type I diabetic with a solitary kidney she did take some frosting and sugary pop at home blood her blood sugar up to 46 it was 86 by the time she arrived in the emergency department still complaining of nausea and vomiting denies any other symptoms fever shortness of breath chest pain no other or GI symptoms. Has been on Tresiba for the last couple years but has noticed she has had hypoglycemic events mainly in the morning for the last week or so she does take her Tresiba in the morning however the hypoglycemia is usually prior to the administration of the medication - Related Data Allergies Allergy/AdvReac Type Severity Reaction Status Date / Time gabapentin Allergy Edema Verified 12/31/18 23:58 Sulfa (Sulfonamide Allergy Rash Verified 12/31/18 22:57 Antibiotics) Home Meds: Home Meds Aspirin [Niko Chewable Aspirin] 81 mg PO DAILY 11/21/13 [History] Furosemide 40 mg PO BID 12/10/13 [History] Nitroglycerin [Nitrostat] 0.4 mg SL ASDIRECTED PRN 01/15/14 [History] atorvaSTATin [Lipitor] 80 mg PO BEDTIME 01/15/14 [History] Levothyroxine 175 mcg PO ACBRK 12/31/18 [History] Mirtazapine 7.5 mg PO BEDTIME 12/31/18 [History] Sildenafil Citrate 20 mg PO TID 12/31/18 [History] Insulin Aspart [NovoLOG] 1 - 8 units SUBCNJ TID 12/30/19 [History] Insulin Degludec [Tresiba Flextouch U-100] 22 units SUBCUT DAILY 12/30/19 [ History] calcitrioL [Calcitriol] 0.25 mg PO DAILY 12/30/19 [History] Ferrous Sulfate 325 mg PO BIDAC #60 tablet 01/20/20 [Rx] hydrOXYzine pamoate [Hydroxyzine Pamoate] 25 mg PO TID PRN 03/02/20 [History] oxyCODONE 5 mg PO QID PRN 03/02/20 [History] Past Medical History HEENT History: Reports: Epistaxis, Impaired Vision Cardiovascular History: Reports: CAD, High Cholesterol, Hypertension, [place], SOB on Exertion, Stents Respiratory History: Reports: Pneumonia, Recurrent Genitourinary History: Reports: Other (See Below) Other Genitourinary History: nephrectomy, 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: Musculoskeletal History: Reports: Osteoporosis Psychiatric History: Reports: Anxiety, Depression Endocrine/Metabolic History: Reports: Diabetes, Type I, Hyperthyroidism Hematologic History: Reports: Anemia, B12 Deficiency, Blood Transfusion(s) - Infectious Disease History Infectious Disease History: Reports: Chicken Pox - Past Surgical History Cardiovascular Surgical History: Reports: Coronary Artery Bypass, Coronary Artery Stent GI Surgical History: Reports: Appendectomy, Colonoscopy Female Surgical History: Reports: Hysterectomy Social & Family History - Family History Cardiac: Reports: Heart Failure, IA - Tobacco Use Smoking Status *Q: Unknown Ever Smoked - Caffeine Use Caffeine Use: Reports: None ED ROS GENERAL - Review of Systems Review Of Systems: See Below Constitutional: Reports: Weakness HEENT: Reports: No Symptoms Respiratory: Reports: No Symptoms Cardiovascular: Reports: No Symptoms Endocrine: Reports: Low Glucose GI/Abdominal: Reports: Nausea, Vomiting : Reports: No Symptoms ED EXAM GENERAL NO PERIP PULSE - Physical Exam Exam: See Below Exam Limited By: No Limitations General Appearance: Alert, Mild Distress Respiratory/Chest: No Respiratory Distress, Lungs Clear, Normal Breath Sounds, No Accessory Muscle Use, Chest Non-Tender Cardiovascular: Regular Rate, Rhythm, No Murmur GI/Abdominal: Soft, Non-Tender Neurological: Alert, Oriented Course - Vital Signs Last Recorded V/S: Last Vital Signs Temp 96.8 F L 03/02/20 08:11 Pulse 97 03/02/20 08:11 Resp 18 03/02/20 08:11 BP 128/55 L 03/02/20 08:11 Pulse Ox 99 03/02/20 08:11 - Orders/Labs/Meds Orders: Active Orders 24 hr Category Date Time Status Cardiac Monitoring [RC] STAT Care 03/02/20 09:02 Ordered EKG Documentation Completion [RC] ASDIRECTED Care 03/02/20 08:58 Ordered INR,PT,PROTHROMBIN TIME [[facility]] Stat Lab 03/02/20 09:02 Ordered PTT,PARTIAL THROMBOPLSTIN TIME [[facility]] Stat Lab 03/02/20 09:02 Ordered Heparin Sodium/D5W [Heparin 25,000 Units in D5W 500 ML] Med 03/02/20 09:15 Ordered 25,000 units in 500 ml IV TITRATE EKG 12 Lead [EK] Stat Ther 03/02/20 08:58 Ordered Medication Orders Heparin Sodium/Dextrose (Heparin 25,000 Units In D5w 500 Ml) 25,000 units in 500 mls @ 17.418 mls/hr IV TITRATE [facility]; Protocol Labs: Laboratory Tests 03/02/20 03/02/20 03/02/20 Range/Units 08:10 08:10 08:10 WBC 7.0 (4.5-11.0) K/uL RBC 3.53 (3.30-5.50) M/uL Hgb 8.8 L (12.0-15.0) g/dL Hct 28.8 L (36.0-48.0) % MCV 82 (80-98) fL MCH 25 L (27-31) pg MCHC 31 L (32-36) % Plt Count 336 (150-400) K/uL Neut % (Auto) 70 H (36-66) % Lymph % (Auto) 15 L (24-44) % [place] % (Auto) 13 H (2-6) % Eos % (Auto) 1 L (2-4) % Baso % (Auto) 1 (0-1) % Sodium 137 L (140-148) mmol/L Potassium 3.4 L (3.6-5.2) mmol/L Chloride 98 L (100-108) mmol/L Carbon Dioxide 29 (21-32) mmol/L Anion Gap 13.4 (5.0-14.0) mmol/L BUN 33 H (7-18) mg/dL Creatinine 2.2 H (0.6-1.0) mg/dL Est Cr Clr Drug Dosing 20.25 mL/min Estimated GFR (MDRD) 22 L (>60) Glucose 72 L (74-106) mg/dL Lactic Acid 3.2 H (0.4-2.0) mmol/L Calcium 9.4 (8.5-10.1) mg/dL Total Bilirubin 1.6 H (0.2-1.0) mg/dL AST 70 H D (15-37) U/L ALT 55 D (12-78) U/L Alkaline Phosphatase 257 H (46-116) U/L Troponin I 0.542 H* (0.000-0.056) ng/mL Total Protein 7.7 (6.4-8.2) g/dL Albumin 2.9 L (3.4-5.0) g/dL Globulin 4.8 H (2.3-3.5) g/dL Albumin/Globulin Ratio 0.6 L (1.2-2.2) Meds: Medications Generic Name Dose Route Start Last Admin Trade Name Freq PRN Reason Stop Dose Admin Heparin Sodium/Dextrose 25,000 units in 500 mls @ 17.418 mls/hr 03/02/20 09: 15 Heparin 25,000 Units In D5w 500 Ml IV TITRATE [facility] Protocol 12 UNITS/KG/HR Discontinued Medications Generic Name Dose Route Start Last Admin Trade Name Freq PRN Reason Stop Dose Admin Aspirin 324 mg 03/02/20 09:02 03/02/20 09:17 Aspirin PO 03/02/20 09:03 324 mg ONETIME ONE Administration Dextrose/Water 50 ml 03/02/20 08:12 03/02/20 08:17 Dextrose 50% In Water IVPUSH 03/02/20 08:13 50 ml ONETIME ONE Administration Heparin Sodium (Porcine) 4,000 units 03/02/20 09:07 03/02/20 09:17 Heparin Sodium IVPUSH 03/02/20 09:08 4,000 units ONETIME ONE Administration Ondansetron HCl 4 mg 03/02/20 08:12 03/02/20 08:18 Zofran IVPUSH 03/02/20 08:13 4 mg ONETIME ONE Administration Ticagrelor 180 mg 03/02/20 09:02 03/02/20 09:17 Brilinta PO 03/02/20 09:03 180 mg ONETIME ONE Administration Departure - Departure Time of Disposition: 09:23 Disposition: DC/Tfer to Acute Hospital 02 Condition: Serious Clinical Impression: Non-STEMI (non-ST elevated myocardial infarction), Hyperglycemia Type 1 diabetes mellitus Qualifiers: Diabetes mellitus complication status: with kidney complications Diabetes mellitus complication detail: with chronic kidney disease Chronic kidney disease stage: stage 4 (severe) Qualified Code(s): E10.22 - Type 1 diabetes mellitus with diabetic chronic kidney disease; N18.4 - Chronic kidney disease, stage 4 (severe) - Discharge Information Referrals: PCP,None [Primary Care Provider] - Forms: ED Department Discharge Critical Care Note - Critical Care Note Total Time (mins): 15 Sepsis Event Note - Evaluation Sepsis Screening Result: No Definite Risk - Focused Exam Vital Signs: Vital Signs Temp Pulse Resp BP Pulse Ox 03/02/20 08:11 96.8 F L 97 18 128/55 L 99 03/02/20 08:10 96.8 F L 97 18 128/55 L 99 Date Exam was Performed: 03/02/20 Time Exam was Performed: 09:21 - My Orders Last 24 Hours: My Active Orders 03/02/20 08:58 EKG Documentation Completion [RC] ASDIRECTED EKG 12 Lead [EK] Stat 03/02/20 09:02 Cardiac Monitoring [RC] STAT INR,PT,PROTHROMBIN TIME [[facility]] Stat PTT,PARTIAL THROMBOPLSTIN TIME [[facility]] Stat 03/02/20 09:15 Heparin Sodium/D5W [Heparin 25,000 Units in D5W 500 ML] 25,000 units in 500 ml IV TITRATE - Assessment/Plan Last 24 Hours: My Active Orders 03/02/20 08:58 EKG Documentation Completion [RC] ASDIRECTED EKG 12 Lead [EK] Stat 03/02/20 09:02 Cardiac Monitoring [RC] STAT INR,PT,PROTHROMBIN TIME [[facility]] Stat PTT,PARTIAL THROMBOPLSTIN TIME [COAG] Stat 03/02/20 09:15 Heparin Sodium/D5W [Heparin 25,000 Units in D5W 500 ML] 25,000 units in 500 ml IV TITRATE Plan: Assessment Acuity = acute Site and laterality = non-ST elevation myocardial infarction complicated with a hypoglycemic event and a type I diabetic and solitary kidney with new onset atrial fibrillation Etiology = suspicious for coronary artery disease event Manifestations = nausea and vomiting Location of injury = Home Lab values = hemoglobin low at 8.8 consistent with normochromic anemia sodium low at 137 consistent with hyponatremia potassium low at 3.4 consistent hypokalemia creatinine elevated 2.2 consistent with chronic renal failure stage G4 lactic acid elevated 3.2 consistent lactic acidosis total bilirubin elevated 1.6 consistent hyperbilirubinemia AST elevated at 70 consistent with elevated liver enzymes troponin elevated 0.542 consistent with non-ST elevation myocardial infarction Plan Thus far she has been given heparin bolus, full dose aspirin, Brilinta 180 mg heparin drip will be initiated in route as well as Zofran 4 mg and an amp of D50 , call discussed case Dr. Hayes emergency room physician [facility] kindly accepted the patient at 910 she will be transported via EMS ground This note was dictated using [employer] voice recognition software please call with any questions on syntax or grammar.
[2020-03-02] MEDS ORDERED: Ticagrelor 90 MG Tab PO ONE (09:02)
[2020-03-02] MEDS ORDERED: Aspirin 81 MG Tab.Chew PO ONE (09:02)
[2020-03-02] MEDS ORDERED: Heparin Sodium 5,000 Units/ML Vial IVPUSH ONE (09:07)
[2020-03-02] MEDS ORDERED: Heparin Sodium/D5W 25,000 UNITS/500 ML BAG IV SCH (09:15)
[2020-03-02 09:24] VITALS: BP 142/69; PULSE 89
[2020-03-02] MEDS ORDERED: Prochlorperazine 10 MG/2 ML SDV IVPUSH ONE (09:27)
== END 2020-03-02 10:02 ==
LOC: JP.ED 07:59
DX: E10.22 Type 1 diabetes mellitus with diabetic chronic kidney disease (principal); I12.9 Hypertensive chronic kidney disease with stage 1 through stage 4 chronic kidney disease, or unspecified chronic kidney disease; N18.4 Chronic kidney disease, stage 4 (severe); E10.65 Type 1 diabetes mellitus with hyperglycemia; I21.4 Non-ST elevation (NSTEMI) myocardial infarction; E78.00 Pure hypercholesterolemia, unspecified; M81.0 Age-related osteoporosis without current pathological fracture; I25.810 Atherosclerosis of coronary artery bypass graft(s) without angina pectoris; F41.9 Anxiety disorder, unspecified; F32.9 Major depressive disorder, single episode, unspecified; E05.90 Thyrotoxicosis, unspecified without thyrotoxic crisis or storm; Z88.2 Allergy status to sulfonamides; Z88.8 Allergy status to other drugs, medicaments and biological substances; Z79.82 Long term (current) use of aspirin; Z79.899 Other long term (current) drug therapy; Z90.49 Acquired absence of other specified parts of digestive tract
CPT/HCPCS: 36415; 80053; 82962; 83605; 84484; 85025; 85610; 85730; 93005; 96374; 96375; 96376; 99285; A9270; J0780; J1644; J2405; 93010